=== PATIENT | female | born 1990 | race Caucasian/White ===

== ENCOUNTER 2017-12-15 16:18 | Emergency (ER) | payer MEDICAID, SELFPAY ==
[2017-12-15 16:19] VITALS: BP 137/84; PULSE 112; RESP 16; TEMP 37.2; O2SAT 100; BMI 23.5
--- NOTE | 2017-12-15 16:26 | EKG12_ITS ---
Test Reason : CP Blood Pressure : / mmHG Vent. Rate : 089 BPM Atrial Rate : 089 BPM P-R Int : 158 ms QRS Dur : 086 ms QT Int : 348 ms P-R-T Axes : 044 075 010 degrees QTc Int : 423 ms Normal sinus rhythm Normal ECG Confirmed by MER MORALES, MONICA ([id number]), photo editor MALA THOMAS ([id number]) on 12/17/2017 9:55:37 AM Referred By: GARDENIA Confirmed By:MONICA DEL ANGEL MD
--- NOTE | 2017-12-15 16:26 | RAD_ITS ---
STUDY: X-RAY CHEST REASON FOR EXAM: Female, 27 years old. CHEST PRESSURE FOR SEVERAL DAYS TECHNIQUE: PA and lateral views of the chest. COMPARISON: November 07, 2015 FINDINGS: The lungs are clear and expanded. There is no demonstrated pleural abnormality. Normal size heart. Normal mediastinum and roselia. Normal visualized pulmonary arteries. Normal visualized aortic arch and descending thoracic aorta. Normal visualized thoracic spine. Normal visualized ribs, clavicles, and shoulders. There is no demonstrated abnormality of the visualized soft tissue structures of the upper abdomen. RAD/Chest PA and Lateral IMPRESSION: Normal x-ray examination of the chest. Electronically Signed: Key Rees MD at 17:40 EDT , Service support ,
--- NOTE | 2017-12-15 16:28 | ED.DCSUM_ITS ---
- ER Visit Summary Date of Service: 12/15/17 Chief Complaint: Chest pain History of Present Illness: The patient is a 27 F presents to the emergency department with intermittent chest pain. The patient's been having symptoms for the past 2-3 days. She states that she will get a tightness in her mid chest into her midepigastric area. She does feel mildly nauseated. She states occasionally, she will feel short of breath. She states she has had this from time to time before. She did have an outpatient EKG recently and was told that she had an irregular heart rhythm. There is no family history of coronary vascular disease. The patient denies any recent travel. She has no history of pulmonary embolus. She denies any fevers or chills. She said no cough. She denies leg swelling or orthopnea. Physical Examination: Vital signs reviewed General: Well-nourished, well-developed Head: Normocephalic, atraumatic Eyes: Pupils equal and reactive, extraocular muscles intact Neck, supple, no lymphadenopathy Heart: Regular rate and rhythm Respiratory: No distress, clear bilaterally Abdomen: Soft, nontender, nondistended, no peritoneal signs Back: Nontender Extremities: Nontender, no edema, no cords Skin: Normal color no rash Neuro: Alert and oriented, no focal or lateralizing deficits Test Results: [] Emergency Department Course and Treatment: Patient presents to the emergency department with intermittent chest pain and nausea. She had minimal pain in the midepigastric area. I did obtain an EKG. She had T wave inversion in lead III, but is unchanged from prior. Patient was tachycardic in triage. She was not hypoxic or tachypneic. Chest x-ray was obtained. This is unremarkable. D- dimer is negative. Chest x-ray is also unremarkable. Patient was given fluids , Toradol, and a GI cocktail. She had resolution of her pain. I do feel that this is more likely GI in nature. The patient will be started on Pepcid and was counseled on foods to avoid. She will be discharged home. Treatment Plan: [] Disposition: Discharge Impression: 1. Chest pain This note was generated with Contents Firstation software. It may contain incorrect words, spelling, and punctuation that were not noted in review of the chart prior to signing ED Disposition - Plan for ED Patient: Chief Complaint: Chest Pain Instructions: ED Chest Pain NonCardiac Prescriptions: Ondansetron [Zofran Odt] 4 mg PO Q8H PRN PRN #10 tab PRN Reason: Nausea Famotidine [Pepcid] 20 mg PO BID #28 tab Referrals: Richard Torres MD [Primary Care Provider] -
[2017-12-15] MEDS: 0.9% Normal Saline 1,000 ML 1000 ML IV (16:38)
[2017-12-15] MEDS: Ketorolac 15 MG/ML Vial IV (16:38)
[2017-12-15] MEDS: Ondansetron 4 MG/2 ML Vial IV (16:38)
[2017-12-15 16:49] LABS: Absolute Lymphocyte Count 2.75 X10^3/ul (0.83-4.51); Absolute Neutrophil Count 5.5 X10^3/uL (2.0-7.7); Basophil# 0.04 X10^3/uL; Basophil% 0.4 % (0-1); Eosinophil# 0.05 X10^3/uL; Eosinophils% 0.6 % (0-5); Hemoglobin 13.1 g/dl (12.0-15.0); Lymphocyte # 2.75 X10^3/ul (4.0); Lymphocyte % 30.4 % (19-41); Mean Corp Hgb Conc 33.6 g/gl (32-36); Mean Corpuscular Hgb 29.4 pg (27.0-32.0); Mean Corpuscular Volume 87.4 fL (81-99); Mean Platelet Vol. 9.1 fl (6.2-12.0); Monocyte# 0.67 X10^3/uL; Monocyte% 7.4 % (0-10); Neutrophil # 5.53 X10^3/uL (2.7-7.7); Neutrophil % 61.1 % (47-70); Platelet Count 247 K/mm3 (150-450); RBC Distribution Width CV 12.7 % (11.6-14.6); RBC Distribution Width SD 40.9 fl (35.1-43.9); Red Blood Count 4.46 M/mm3 (4.2-5.4); White Blood Count 9.1 K/mm3 (4.4-11.0)
[2017-12-15 16:51] LABS: POSITIVE COUNT NO; POSITIVE DIFFERENTIAL NO; POSITIVE MORPHOLOGY NO
[2017-12-15 17:02] LABS: Anion Gap 3 (5-15); BUN 13 mg/dL (7-18); BUN/Creat Ratio 18.4 RATIO (10-20); Calcium,Total 9.2 mg/dL (8.5-10.1); Chloride 107 mmol/L (98-107); Creatinine, Serum 0.71 mg/dL (0.55-1.02); EST Glomerular Filtration Rate 107 mL/min (>60); Est Glom Filt Rate - Afr Amer 129 mL/min (>60); Estimated Creatinine Clearance 100.96 ml/min; Glucose 99 mg/dL (74-106); Potassium 3.5 mmol/L (3.5-5.1); Sodium Level 138 mmol/L (136-145)
[2017-12-15 17:16] LABS: Pregnancy, Serum, hCG Quali. NEGATIVE Negative (0-9 Nonpreg)
[2017-12-15 17:27] LABS: D-Dimer Quantitative (DVT/PE) < 0.27 FEU/ug/m (0.27-0.49)
[2017-12-15 17:59] VITALS: BP 112/80; PULSE 84; RESP 18; O2SAT 100
== END 2017-12-15 18:01 | disposition home or self-care (01) ==
LOC: ED 16:34
PROVIDERS: Emergency Provider Emergency Medicine; Family Provider Family Medicine; PCP Family Medicine
DX: R07.9 Chest pain, unspecified (principal)
CPT/HCPCS: 71046; 80048; 84703; 85025; 85379; 93005; 96361; 96374; 96375; 99285; J7030; J2405

== ENCOUNTER 2019-01-28 06:07 | Emergency (ER) | payer MEDICAID, SELFPAY ==
[2019-01-28 06:08] VITALS: BP 114/74; PULSE 90; RESP 18; TEMP 37; O2SAT 100; BMI 27.6
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
[2019-01-28] MEDS: Ondansetron 4 MG/2 ML Vial IV (06:36)
[2019-01-28] MEDS: Morphine 2 MG/ML Syringe IV (06:36)
[2019-01-28 06:53] LABS: Internal QC Validated? YES +Cl - CLEAR BKGD; Pregnancy, Serum, hCG Quali. NEGATIVE Negative
[2019-01-28 07:07] VITALS: BP 111/72; PULSE 96; RESP 16; O2SAT 99
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
[2019-01-28 08:00] VITALS: RESP 16
== END 2019-01-28 09:34 | disposition home or self-care (01) ==
LOC: ED 06:27
PROVIDERS: Emergency Provider Emergency Medicine; Family Provider Family Medicine; PCP Family Medicine
DX: S80.02XA Contusion of left knee, initial encounter (principal); V49.40XA Driver injured in collision with unspecified motor vehicles in traffic accident, initial encounter; Y93.89 Activity, other specified
CPT/HCPCS: 70450; 71045; 72072; 72125; 73564; 74177; 84703; 93005; 96374; 96375; 99285; Q9967; A4216; J2405

== ENCOUNTER 2023-06-09 16:06 | Emergency (ER) | payer MEDICAID, SELFPAY ==
[2023-06-09 16:07] VITALS: BP 119/82; PULSE 93; RESP 17; TEMP 36.4; O2SAT 98; BMI 31.9
--- NOTE | 2023-06-09 18:29 | EX.ED.DYSGE1 ---
HPI History of Present Illness Chief Complaint: General Illness Informant: patient Onset/Context/Timing Onset: Days (4) Context: Gradual Onset Timing: Continuous Quality: Aching Location: Right ear Worsened by: Nothing Relieved by: Nothing Narrative Narrative: Patient presents with ear pain, sore throat, cough, and chills that has been constant for the past 4 days. Patient states it came on gradually. Patient states she was seen at urgent care 4 days ago. Patient states she had a rapid strep done at that time which was negative. Patient states that since that time she has been having some nausea and diarrhea. Patient denies any vomiting. Patient admits to a cough but denies any sputum production. Patient admits to some subjective chills but did not take her temperature. Patient admits to some pain and pressure in her right ear. Patient admits to some decreased hearing from her right ear. PFSH PFSH Medical History no medical history no medical history Home Medications amoxicillin 500 mg tablet 500 mg PO TID #30 tabs 06/09/23 [Rx Last Taken Unknown] Allergy/AdvReac Type Severity Reaction Status Date / Time escitalopram oxalate Allergy Other Verified 06/09/23 16:07 [From Lexapro] nitrofurantoin Allergy Rash Verified 06/09/23 16:07 [From Macrobid] nitrofurantoin Allergy Rash Verified 06/09/23 16:07 macrocrystalline [From Macrobid] Family History (Updated 06/09/23 @ 18:19 by Sherry Reyes) Grandmother Breast cancer Surgical History (Updated 06/09/23 @ 18:[address] Jaron Castaneda DO) Hx of dilation and curettage Previous section Social History household members: family housing: house current occupational status: employed Smoking Status: Former smoker ROS ROS ED Constitutional Constitutional ED: Reports chills and subjective; Denies fever(s) Eyes Eyes: Denies blurry vision or change in vision ENT ENT ED: Reports ear pain right and sore throat; Denies rhinorrhea Cardiovascular Cardiovascular: Denies chest pain or palpitations Respiratory/Chest Respiratory/Chest: Reports cough; Denies dyspnea Gastrointestinal Gastrointestinal: Reports diarrhea and nausea; Denies vomiting Genitourinary Genitourinary ED: Denies dysuria or hematuria Musculoskeletal Musculoskeletal: Denies back pain or neck pain Integumentary Denies abscess or rash Neurologic Neurologic: Denies headache(s) or weakness Allergic/Immunologic Allergic/Immunologic ED: Denies mouth swelling or urticaria EXAM Physical Exam Const Vital Signs: 06/09/23 16:07 06/09/23 18:19 Temperature 97.6 F L Temperature Source Temporal Pulse Rate 93 Respiratory Rate 17 Respiratory Effort Normal Respiratory Pattern Normal Blood Pressure 119/82 H Blood Pressure Mean 94 Pulse Ox 98 Oxygen Delivery Method Room Air Positive well nourished and well developed General Appearance ED: well developed and NAD HEENT Reports moist mucous membranes HEENT Narrative: The right tympanic membrane was erythematous and dull. Left tympanic membrane was clear. Oral mucosa is pink and moist. Oropharynx is clear. Airway is patent. Eyes PERRL and EOMs intact bilaterally Neck supple and no JVD Resp normal respiratory effort and clear to auscultation bilaterally Cardio regular rate and regular rhythm Neuro oriented x3, CN's II-XII intact bilaterally and no sensory deficits noted Sensorium / Orientation: alert Motor Exam: strength 5/5 throughout Psych mental status grossly normal MDM MDM MDM Narrative Medical decision making narrative: Differential diagnosis includes viral upper respiratory infection, COVID-19 infection, influenza infection, and right otitis media. COVID-19 rapid antigen will be obtained to assess for COVID-19 infection. Influenza A and influenza B antigens will be obtained to assess for influenza infection. Lab Data Lab results narrative: COVID-19 rapid antigen was reviewed and was negative. Influenza A and influenza B antigens were reviewed and were negative. Treatment and Re-Evaluation :: Patient was advised of her findings. Patient was given a dose of amoxicillin here. Patient was given a prescription for amoxicillin for her right otitis media. Patient was instructed to take Tylenol or ibuprofen as needed for pain. Patient was instructed to follow-up with her primary care physician in 5 to 7 days. Patient was instructed return if worse in any way. Patient understood and was agreeable with the plan. All questions were answered. Discharge Plan Triage Chief Complaint: General Illness ED Provider: Jaron Castaneda Dx/Rx/DC Orders Clinical Impression: Acute right otitis media Instructions: ED Otitis Media Adult Prescriptions: New amoxicillin 500 mg tablet 500 mg PO TID Qty: 30 0RF Primary Care Provider: Richard Torres Referrals: Richard Torres MD [Primary Care Provider] - 5-7 Days Disposition Disposition: Home, Self Care
[2023-06-09] MEDS: AMOXICILLIN 500 MG CAPSULE PO (20:17)
[2023-06-09 20:18] VITALS: RESP 14
== END 2023-06-09 20:18 | disposition home or self-care (01) ==
PROVIDERS: Emergency Provider Emergency Medicine; PCP Family Medicine; Visit Provider Emergency Medicine
DX: H66.91 Otitis media, unspecified, right ear (principal); Z87.891 Personal history of nicotine dependence
CPT/HCPCS: 87428; 99283

== ENCOUNTER 2024-03-12 14:05 | Emergency (ER) | payer MEDICAID, SELFPAY ==
[2024-03-12 14:06] VITALS: BP 125/76; PULSE 89; RESP 16; TEMP 36.7; O2SAT 95; BMI 32.8
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
[2024-03-12 14:23] LABS: Absolute Neutrophil Count 5.5 X10^3/uL (2.0-7.7); Basophil# 0.06 X10^3/uL; Basophil% 0.7 % (0-1); Eosinophil# 0.29 X10^3/uL; Eosinophils% 3.2 % (0-5); Hematocrit 40.6 % (37-47); Hemoglobin 13.7 g/dL (12.0-15.0); Lymphocyte % 28.6 % (19-41); Mean Corp Hgb Conc 33.7 g/dL (32-36); Mean Corpuscular Hgb 28.5 pg (27.0-32.0); Mean Corpuscular Volume 84.4 fL (81-99); Monocyte% 6.6 % (0-10); NRBC Flagged by Analyzer 0 % (0-5); Neutrophil # 5.51 X10^3/uL (2.7-7.7); Neutrophil % 60.6 % (47-70); Platelet Count 322 K/mm3 (150-450); RBC Distribution Width CV 12.5 % (11.6-14.6); RBC Distribution Width SD 37.9 fl (35.1-43.9); Red Blood Count 4.81 M/mm3 (4.2-5.4); White Blood Count 9.1 K/mm3 (4.4-11.0)
[2024-03-12 14:41] LABS: Anion Gap 5 (5-15); BUN 14 mg/dL (7-18); BUN/Creat Ratio 19.1 RATIO (10-20); Calcium,Total 9.4 mg/dL (8.5-10.1); Chloride 108 mmol/L (98-107); Creatinine, Serum 0.73 mg/dL (0.55-1.02); EST Glomerular Filtration Rate 98 mL/min (>60); Est Glom Filt Rate - Afr Amer 119 mL/min (>60); Estimated Creatinine Clearance 100.19 ml/min; Glucose 90 mg/dL (74-106); Potassium 3.8 mmol/L (3.5-5.1); Sodium Level 138 mmol/L (136-145); Troponin-I HS (w/2H Reflex) < 3 pg/mL (3.0-54.0)
[2024-03-12 15:06] VITALS: BP 104/70; PULSE 82; RESP 16; O2SAT 95
--- NOTE | 2024-03-12 15:20 | RAD_ITS ---
STUDY: X-RAY CHEST REASON FOR EXAM: Female, 33 years old. Chest pain TECHNIQUE: Single AP portable view of the chest. COMPARISON: Comparison is made with prior study dated January 28, 2019. FINDINGS: EKG electrodes are seen. The lungs are clear and expanded. There is no demonstrated pleural abnormality. Normal size heart. Normal mediastinum and roselia. Normal visualized pulmonary arteries. Normal visualized aortic arch and descending thoracic aorta. Normal visualized thoracic spine. Normal visualized ribs, clavicles, and shoulders. There is no demonstrated abnormality of the visualized soft tissue structures of the upper abdomen. RAD/Chest 1 View (Portable) IMPRESSION: Normal x-ray examination of the chest. Electronically Signed: Nathaniel Hwang MD at 15:36 EDT ,
--- NOTE | 2024-03-12 15:29 | EDS_ITS ---
HPI History of Present Illness Chief Complaint: Chest Pain PFSH PFS Home Medications ?Medication ?Instructions ?Recorded ?Last Taken ?Type amoxicillin 500 mg tablet 500 mg PO TID #30 tabs 06/09/23 Unknown Rx Allergy/AdvReac Type Severity Reaction Status Date / Time escitalopram oxalate (From Allergy Other Verified 03/12/24 14:08 Lexapro) nitrofurantoin (From Allergy Rash Verified 03/12/24 14:08 Macrobid) nitrofurantoin Allergy Rash Verified 03/12/24 14:08 macrocrystalline (From Macrobid) Family History (Updated 06/09/23 @ 18:19 by Sherry Reyes) Grandmother Breast cancer Surgical History Hx of dilation and curettage Previous section Social History household members: family housing: house current occupational status: employed Smoking Status: Former smoker EXAM Physical Exam Const Vital Signs: 03/12/24 14:06 03/12/24 15:06 03/12/24 15:06 Temperature 98.1 F Temperature Source Oral Pulse Rate 89 82 Respiratory Rate 16 16 Respiratory Effort Normal Blood Pressure 125/76 H 104/70 Blood Pressure Mean 92 81 Pulse Ox 95 95 Oxygen Delivery Method Room Air Room Air 03/12/24 15:15 03/12/24 16:00 03/12/24 17:00 Temperature Temperature Source Pulse Rate 83 80 Respiratory Rate 19 H 16 Respiratory Effort Blood Pressure 106/77 101/64 Blood Pressure Mean 86 76 Pulse Ox 100 99 Oxygen Delivery Method Room Air Room Air Room Air MDM MDM MDM Narrative Medical decision making narrative: HISTORY OF PRESENT ILLNESS: 33-year-old female with no significant past medical history presents with chest pain. Notes chest pain for 1 and half weeks. Notes worsening she moves her arms around. She further states she is having chest pain constantly for 1 and half weeks. Denies syncope. Chest pain is sharp. As well as when she moves her upper extremities. Is not worse with exertion. It is not pleuritic. She has no family history of early cardiac . Denies any bleeding diathesis or volume loss. Patient denies sudden onset of pain, no tearing sensation, no migratory symptoms, no new numbness, weakness or loss of sensation. Patient denies family history or personal history of Marfan syndrome or Lola-Danlos. The patient denies recent surgery in the last 4 weeks or immobilization in the last 3 days, denies previous diagnosis of DVT or PE, hemoptysis, unilateral leg swelling or malignancy with treatment the last 6 months. No estrogen use noted. REVIEW OF SYSTEMS: All other systems reviewed and are negative except as noted in the history of present illness. At least 10 review of systems reviewed and are negative except as noted in history of present illness. PHYSICAL EXAM: Nursing triage notes reviewed, Vital signs reviewed Constitutional: please see mdm HENT: MMM Eyes: Pupils equal round and reactive to light, Extraocular muscles intact Neck: No stridor, no JVD, full neck ROM Lungs: Clear to auscultation, No wheezing or rales. No increased work of breathing, no conversational dyspnea, no accessory muscle use, no nasal flaring. No respiratory distress noted Heart: Regular rate and rhythm, No murmurs, No rubs and No gallops, 2+ distal pulses (radial, femoral, posterior tibial) in all extremities Abdomen: Soft, there is no tenderness, rigidity, rebound or guarding, no obvious peritoneal signs, no palpable pulsatile abdominal masses, no auscultated abdominal bruit : No CVAT Extremities: No edema Neuro: No focal neurological deficits, cranial nerves II through XII intact, 5/5 strength in all extremities. Intact sensation to light touch in all extremities, 2+ reflexes bilateral patella tendons. Normal gait. No ataxia. Skin: No rash or lesions noted MEDICAL DECISION MAKING: Chief Complaint: Chest pain External records reviewed: Prior imaging, medications and prior outpatient notes reviewed Factors affecting care none report Social determinants of health:[None History obtained from others: Consults: none [facility] Narrative: The patient was initially hemodynamically stable, afebrile and nontoxic- appearing. No focal cardiopulmonary abnormalities I considered the following differential diagnosis: ACS, arrhythmia, anemia, electrolyte abnormality, pneumonia, pneumothorax, GI etiology, PE Considered the following thought they are less likely secondary to history and physical exam components: PE less likely given low risk Wells score. Aortic dissection is thought to be less likely given no sudden ripping or tearing pain, migratory pain, palpable pulse inequalities, no focal neurologic deficits concurrent with chest pain. Chance of dissection less than 06/1999. Pericarditis less likely given no pathognomonic EKG changes (no diffuse ST elevations, [place] depressions). GI etiology (i.e. Boerhaave syndrome) less likely given no chest or neck crepitus, no vomiting or forced retching. ALL IMAGES (IF OBTAINED) HAVE BEEN PERSONALLY REVIEWED AND INTERPRETED BY MYSELF. EKG and labs obtained in triage: EKG with normal sinus rhythm, normal axis, no intervals, no STEMI CBC without leukocytosis, severe anemia, no thrombocytopenia. BMP without evidence of significant electrolyte abnormalities, no anion gap, no acute kidney injury. High-sensitivity troponin is negative, no evidence of myocardial ischemia x 2 The synthesis of the patient's history, physical exam, labs images suggest no acute life-limiting etiology. I completed a HEART Score to screen for Major Adverse Cardiac Event (MACE) in this patient. The evidence indicates that the patient is very low risk for MACE and this is consistent with my clinical intuition. The risk of further workup or hospitalization for MACE is likely higher than the risk of the patient having a MACE. It is, therefore, in the patient?s best interest not to do additional emergent testing or to be hospitalized for MACE at this time. Shared Decision-Making No hospitalization indicated I have discussed with the patient my clinical impression and the result of the HEART Score to screen for MACE, as well as the risks of further testing and hospitalization. The HEART Score shows that the risk for MACE is less than 1%. Although the risk of MACE has not been completely eliminated, the risks of further testing or hospitalization for MACE likely exceed any potential benefit, and the patient agrees with not pursuing further emergent evaluation or hospitalization for MACE at this time. The patient and/or family, caregivers express understanding. The patient and/or family, caregivers agrees with the plan. Total critical care time today provided was at least 0 minutes. This excludes separately billable procedures. Critical care time (if documented) is secondary to the patient having high probability of clinically significant/life threatening deterioration in the patient's condition which required my urgent intervention. Impression: 1. Chest pain 2. Hyperchloremia Disposition: Discharge home Dexter Powell, DO Lab Data Labs: Laboratory Results - last 24 hr 03/12/24 03/12/24 14:13 16:15 WBC 9.1 RBC 4.81 Hgb 13.7 Hct 40.6 MCV 84.4 MCH 28.5 MCHC 33.7 RDW Std Deviation 37.9 RDW Coeff of Tevin 12.5 Plt Count 322 MPV 9.0 Immature Gran % (Auto) 0.300 Neut % (Auto) 60.6 Lymph % (Auto) 28.6 [place] % (Auto) 6.6 Eos % (Auto) 3.2 Baso % (Auto) 0.7 Absolute Neuts (auto) 5.5 Absolute Lymphs (auto) 2.60 Nucleated RBC % 0 Sodium 138 Potassium 3.8 Chloride 108 H Carbon Dioxide 25.0 Anion Gap 5 BUN 14 Creatinine 0.73 Estim Creat Clear Calc 100.19 Est GFR (MDRD) Af Amer 119 Est GFR (MDRD) Non-Af 98 BUN/Creatinine Ratio 19.1 Glucose 90 Calcium 9.4 Troponin I High Sens < 3 L 4 Radiography Diagnostic Testing: Clinical Impression(s) from Imaging Studies Chest X-Ray 03/12/24 15:20 IMPRESSION: Normal x-ray examination of the chest. Electronically Signed: Nathaniel Hwang MD at 15:36 EDT , Discharge Plan Triage Chief Complaint: Chest Pain ED Provider: Dexter Powell Dx/Rx/DC Orders Prescriptions: No Action amoxicillin 500 mg tablet 500 mg PO TID Qty: 30 0RF Primary Care Provider: Richard Torres Referrals: Richard Torres MD [Primary Care Provider] - Print Language: Estonian
[2024-03-12 16:00] VITALS: BP 106/77; PULSE 83; RESP 19; O2SAT 100
[2024-03-12 16:20] LABS: Reflex Troponin-HS? (from REC) Y
[2024-03-12 16:43] LABS: Troponin-I HS 4 pg/mL (3.0-54.0)
[2024-03-12 17:00] VITALS: BP 101/64; PULSE 80; RESP 16; O2SAT 99
[2024-03-12 17:59] VITALS: BP 117/62; PULSE 57; RESP 15; TEMP 36.3; O2SAT 100
== END 2024-03-12 18:00 | disposition home or self-care (01) ==
PROVIDERS: Emergency Provider Emergency Medicine; PCP Family Medicine; Visit Provider Emergency Medicine
DX: R07.9 Chest pain, unspecified (principal); E87.8 Other disorders of electrolyte and fluid balance, not elsewhere classified; Z88.1 Allergy status to other antibiotic agents; Z87.891 Personal history of nicotine dependence
CPT/HCPCS: 71045; 80048; 84484; 85025; 93005; 99284; A4216

== ENCOUNTER 2025-05-28 14:51 | Emergency (ER) | payer MEDICAID, SELFPAY ==
[2025-05-28 14:52] VITALS: BP 122/84; PULSE 90; RESP 16; TEMP 36.6; O2SAT 99; BMI 38.0
--- NOTE | 2025-05-28 15:36 | ED.VIS.CHEST ---
HPI History of Present Illness Chief Complaint: Chest Pain Informant: patient Onset/Context/Timing Onset: Yesterday Activity at onset: sudden Timing: Continuous Location: Substernal, Left Parasternal and Left Chest Worsened By: Nothing Relieved By: Nothing Associated Symptoms: Positive for Nausea, Vomiting, Lightheadedness and Palpitations; Negative for Diaphoresis, Dyspnea, Cough, Fever or Acid Reflux Narrative Narrative: Patient presents with chest pain that began yesterday. Patient states it began rather suddenly. Patient dates it is constant. Patient describes it as a tightness. Patient states the pain is over the substernal area and radiates to the left chest and into her back. Patient states nothing makes it better and nothing makes it worse. Patient admits to some nausea and vomiting. Patient also admits to some lightheadedness. Patient states she had an episode yesterday where she felt like her heart was racing. CVD Risk Factors: Negative for Hypertension, Diabetes, Hypercholesterolemia, Family History 1' </=55 or Smoking PE Risk Factors: Negative for Recent Travel/Surgery, Recent Immobilization, Prior DVT or PE or Cancer [facility] Medical History Anxiety Former smoker Home Medications ?Medication ?Instructions ?Recorded ?Last Taken ?Type cetirizine 10 mg tablet 10 mg PO DAILY 05/28/25 05/27/25 History fluticasone propionate 50 1 spray intranasal DAILY 05/28/25 05/27/25 History mcg/actuation nasal spray,suspension Allergy/AdvReac Type Severity Reaction Status Date / Time escitalopram oxalate (From Allergy Other Verified 05/28/25 14:53 Lexapro) nitrofurantoin (From Allergy Rash Verified 05/28/25 14:53 Macrobid) nitrofurantoin Allergy Rash Verified 05/28/25 14:53 macrocrystalline (From Macrobid) Family History (Updated 06/09/23 @ 18:19 by Sherry Reyes) Grandmother Breast cancer Surgical History Hx of dilation and curettage Previous section Social History household members: family housing: house current occupational status: employed Smoking Status: Former smoker ROS ROS ED Constitutional Constitutional ED: Denies chills or fever(s) Eyes Eyes: Denies blurry vision or change in vision ENT ENT ED: Reports rhinorrhea; Denies sore throat Cardiovascular Cardiovascular: Reports chest pain, palpitations and racing heartbeat Respiratory/Chest Respiratory/Chest: Denies cough or dyspnea Gastrointestinal Gastrointestinal: Reports nausea and vomiting Genitourinary Genitourinary ED: Denies dysuria or hematuria Musculoskeletal Musculoskeletal: Reports back pain and neck pain Integumentary Denies abscess or rash Neurologic Neurologic: Reports headache(s); Denies weakness Allergic/Immunologic Allergic/Immunologic ED: Denies mouth swelling or urticaria EXAM Physical Exam Const Vital Signs: 05/28/25 14:52 05/28/25 15:05 05/28/25 15:52 Temperature 98 F Temperature Source Oral Pulse Rate 90 87 Respiratory Rate 16 18 Respiratory Effort Normal Blood Pressure 122/84 H 118/74 Blood Pressure Mean 96 88 Pulse Ox 99 100 Oxygen Delivery Method Room Air Room Air 05/28/25 15:52 05/28/25 16:00 05/28/25 16:56 Temperature Temperature Source Pulse Rate 79 87 Respiratory Rate 14 18 Respiratory Effort Blood Pressure 118/74 113/78 Blood Pressure Mean 88 89 Pulse Ox 100 100 Oxygen Delivery Method Room Air Room Air Room Air 05/28/25 18:00 05/28/25 18:44 Temperature 98.9 F Temperature Source Pulse Rate 74 79 Respiratory Rate 15 17 Respiratory Effort Blood Pressure 101/72 108/70 Blood Pressure Mean 81 82 Pulse Ox 94 98 Oxygen Delivery Method Room Air Positive well nourished and well developed Constitutional Narrative: BMI is 38.0. General Appearance ED: well developed and NAD HEENT Reports moist mucous membranes Neck supple and no JVD Resp normal respiratory effort and clear to auscultation bilaterally Cardio regular rate and regular rhythm GI soft to palpation, non-tender and non-distended Neuro oriented x3, CN's II-XII intact bilaterally and no sensory deficits noted Sensorium / Orientation: awake and alert Motor Exam: strength 5/5 throughout Psych mental status grossly normal Heart Score History: Slightly/Non-Suspicious ECG: Normal Age: </= 45 years Risk Factors: No Risk Factors Troponin: </= Normal Limit Score: 0 MDM MDM MDM Narrative Medical decision making narrative: Differential diagnosis includes cardiac dysrhythmia, cardiac ischemia, pneumonia, bronchitis, electrolyte abnormality, gastroesophageal reflux disease, and anxiety. EKG will be obtained to assess for cardiac dysrhythmia and cardiac ischemia. Chest x-ray will be obtained to assess for pneumonia and bronchitis. CBC will be obtained to assess for leukocytosis and anemia. Basic metabolic profile will be obtained to assess for electrolyte abnormality renal function x-ray high-sensitivity troponin will be obtained to assess for coronary ischemia. History & Record Review Additional record(s) reviewed:: Prior ED visit and Prior labs Lab Data Attestation: I reviewed the patient's lab results. Lab results narrative: CBC was reviewed and was within normal limits. Basic metabolic profile was reviewed and was within normal limits. High-sensitivity troponin was reviewed and was less than 6. D-dimer was reviewed and was normal at 0.34. 2-hour repeat high-sensitivity troponin was reviewed and was less than 6. Labs: Laboratory Results - last 24 hr 05/28/25 05/28/25 15:20 17:15 WBC 9.6 RBC 4.71 Hgb 13.8 Hct 40.6 MCV 86.2 MCH 29.3 MCHC 34.0 RDW Std Deviation 39.5 RDW Coeff of Tevin 12.5 Plt Count 325 MPV 9.4 Immature Gran % (Auto) 0.200 Neut % (Auto) 67.1 Lymph % (Auto) 23.8 [place] % (Auto) 5.6 Eos % (Auto) 2.7 Baso % (Auto) 0.6 Absolute Neuts (auto) 6.4 Absolute Lymphs (auto) 2.28 Nucleated RBC % 0 D-Dimer Quant (PE/DVT) 0.34 Sodium 139 Potassium 3.7 Chloride 103 Carbon Dioxide 24.5 Anion Gap 11 BUN 9 Creatinine 0.63 L Estim Creat Clear Calc 124.28 Est GFR (MDRD) Non-Af 121 BUN/Creatinine Ratio 15.0 Glucose 91 Calcium 9.4 Troponin T High Sens < 6 Troponin T Hi Sens 2 Hr < 6 Radiography Chest X-Ray - ED: 2 View, Read by ED Physician, Read by Radiologist and No Acute Disease Diagnostic Testing: Clinical Impression(s) from Imaging Studies Chest X-Ray 05/28/25 16:15 IMPRESSION: No acute cardiopulmonary disease. Reading Location: [facility] PA and lateral chest x-ray was obtained. There are 2 views. On my independent interpretation, lung byrd are clear. There is normal cardiac silhouette. Bony thorax is normal. There is no acute process noted. Radiologist also interpreted the x-ray and agrees. EKG Initial EKG: Attestation: I personally reviewed and interpreted this EKG as follows: Interpretation: Sinus Rhythm (63) and No Acute Injury Pattern Comments: EKG was obtained. On my independent interpretation, it showed a normal sinus rhythm with a rate of 63. NE interval, QRS interval, and QTc intervals were all normal. [place] was normal. There are no acute ST or T wave changes. Prior EKG tracings: available for review Prior: Unchanged (03/12/2024) Treatment and Re-Evaluation :: Patient was given aspirin. Patient was feeling better on reevaluation. Patient was advised of her findings. Patient has a HEART score of 0. Patient was advised that this is low risk for acute cardiac event. Patient was instructed to follow-up with her primary care physician in 5 to 7 days. Patient understood and was agreeable with the plan. All questions were answered. Discharge Plan Triage Chief Complaint: Chest Pain ED Provider: Jaron Castaneda Dx/Rx/DC Orders Clinical Impression: Chest pain Instructions: ED Chest Pain, Uncertain Cause Prescriptions: No Action cetirizine 10 mg tablet 10 mg PO DAILY fluticasone propionate 50 mcg/actuation spray,suspension 1 spray INTRANASAL DAILY Primary Care Provider: Richard Torres Referrals: Richard Torres MD [Primary Care Provider, Medical] - 5-7 Days Print Language: Yi Disposition Disposition: Home, Self Care Discharge Date/Time: 05/28/25 19:03
[2025-05-28 15:52] VITALS: BP 118/74; PULSE 87; RESP 18; O2SAT 100
--- NOTE | 2025-05-28 15:52 | EKG12_ITS ---
Test Reason : Blood Pressure : */* mmHG Vent. Rate : 63 BPM Atrial Rate : 63 BPM P-R Int : 172 ms QRS Dur : 78 ms QT Int : 386 ms P-R-T Axes : 36 75 23 degrees QTcB Int : 395 ms Normal sinus rhythm with sinus arrhythmia Normal ECG Confirmed by MER MORALES, MONICA ([id number]), editor index SHAILESH MCKINNEY ([id number]) on 05/31/2025 6:06:01 AM Referred By: Confirmed By: MONICA DEL ANGEL MD
[2025-05-28 16:00] VITALS: BP 118/74; PULSE 79; RESP 14; O2SAT 100
--- NOTE | 2025-05-28 16:15 | RAD_ITS ---
PROCEDURE: CHEST PA AND LATERAL 05/28/2025 REASON FOR EXAM: CHEST PAIN TECHNIQUE: Procedure Code: RADCXR Modality: DX Procedure: CHEST PA AND LATERAL COMPARISON: 03/12/2024 FINDINGS: Lungs/Pleura: Clear. Heart/Mediastinum: Normal in size. Bones/Soft tissues: Unremarkable. RAD/Chest PA and Lateral IMPRESSION: No acute cardiopulmonary disease. Reading Location: [id number]
[2025-05-28 16:29] LABS: Hematocrit 40.6 % (37-47); Hemoglobin 13.8 g/dL (12.0-15.0); Immature Granulocytes Count 0.020 X10^3/uL (0.0-0.0); Mean Corp Hgb Conc 34.0 g/dL (32-36); Mean Corpuscular Volume 86.2 fL (81-99); Mean Platelet Vol. 9.4 fl (6.2-12.0); NRBC Flagged by Analyzer 0 % (0-5); Platelet Count 325 K/mm3 (150-450); RBC Distribution Width CV 12.5 % (11.6-14.6); RBC Distribution Width SD 39.5 fl (35.1-43.9); Red Blood Count 4.71 M/mm3 (4.2-5.4); White Blood Count 9.6 K/mm3 (4.4-11.0)
[2025-05-28 16:36] LABS: D-Dimer Quantitative (DVT/PE) 0.34 FEU/ug/m (0.27-0.49)
[2025-05-28 16:42] LABS: Anion Gap 11 (5-15); BUN 9 mg/dL (4-19); BUN/Creat Ratio 15.0 RATIO (10-20); Calcium,Total 9.4 mg/dL (7.6-11.0); Carbon Dioxide 24.5 mmol/L (21.0-32.0); Chloride 103 mmol/L (98-108); Estimated Creatinine Clearance 124.28 ml/min (50-250); Glucose 91 mg/dL (70-99); Potassium 3.7 mmol/L (3.3-5.1); Troponin T High Sensitivity < 6 ng/L (<=14)
[2025-05-28 16:56] VITALS: BP 113/78; PULSE 87; RESP 18; O2SAT 100
[2025-05-28 17:50] LABS: Troponin T High Sens 2 HR < 6 ng/L (<=14)
[2025-05-28 18:00] VITALS: BP 101/72; PULSE 74; RESP 15; O2SAT 94
[2025-05-28 18:44] VITALS: BP 108/70; PULSE 79; RESP 17; TEMP 37.2; O2SAT 98
== END 2025-05-28 19:03 | disposition home or self-care (01) ==
PROVIDERS: Emergency Provider Emergency Medicine; PCP Family Medicine; Visit Provider Emergency Medicine
DX: R07.9 Chest pain, unspecified (principal); Z87.891 Personal history of nicotine dependence
CPT/HCPCS: 71046; 80048; 84484; 85025; 85379; 93005; 99284; A4216

== ENCOUNTER 2025-06-07 23:38 | Emergency (ER) | payer OTHER, MEDICAID, SELFPAY ==
[2025-06-07 23:39] VITALS: BP 141/84; PULSE 93; RESP 16; TEMP 36.6; O2SAT 98; BMI 32.9
--- NOTE | 2025-06-07 23:52 | EDS_ITS ---
HPI History of Present Illness Chief Complaint: Back Informant: patient Onset/Context/Timing Onset: Today Context: Sudden Onset Injury: lifting Timing: Continuous Quality: Sharp Location: Lumbar and Buttock Worsened by: improves with Movement Relieved by: Nothing Associated Symptoms Associated Symptoms: Negative for Numbness, Tingling, Radiation to Right Leg, Radiation to Left Leg, Fever, Abdominal Pain, Dysuria, Unable to Ambulate, Unable to Transfer, Urinary Retention, Urinary Incontinence, Constipation or Fecal Incontinence Narrative Narrative: Patient presents with low back pain that began tonight. 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 Patient states that she felt a pop in her low back. Patient states her pain radiates into her right hip. Patient states it is mainly over the right lower lumbar area. Patient denies any paresthesias or weakness. Patient denies any bowel or bladder changes. Patient denies any saddle anesthesia. Patient denies any other injuries. [facility] History Anxiety Former smoker Home Medications ?Medication ?Instructions ?Recorded ?Last Taken ?Type cetirizine 10 mg tablet 10 mg PO DAILY 05/28/2510/16 History fluticasone propionate 50 1 spray intranasal DAILY 11/1505/27/25 History mcg/actuation nasal spray,suspension naproxen 500 mg tablet 500 mg PO BID PRN #20 tabs 1 08/09/24 Unknown Rx Allergy/AdvReac Type Severity Reaction Status Date / Time escitalopram oxalate (From Allergy Other Verified 06/07/25 23:42 Lexapro) nitrofurantoin (From Allergy Rash Verified 06/07/25 23:42 Macrobid) nitrofurantoin Allergy Rash Verified 06/07/25 23:42 macrocrystalline (From Macrobid) Family History (Updated 06/09/23 @ 18:19 by Sherry Reyes) Grandmother Breast cancer Surgical History Hx of dilation and curettage Previous section Social History household members: family housing: house current occupational status: employed Smoking Status: Former smoker ROS ROS ED Constitutional Constitutional ED: Denies chills or fever(s) Eyes Eyes: Denies blurry vision or change in vision ENT ENT ED: Reports rhinorrhea and sore throat Cardiovascular Cardiovascular: Denies chest pain or palpitations Respiratory/Chest Respiratory/Chest: Denies cough or dyspnea Gastrointestinal Gastrointestinal: Denies nausea or vomiting Genitourinary Genitourinary ED: Denies dysuria or hematuria Musculoskeletal Musculoskeletal: Reports back pain; Denies neck pain Integumentary Denies abscess or rash Neurologic Neurologic: Denies headache(s) or weakness Allergic/Immunologic Allergic/Immunologic ED: Denies mouth swelling or urticaria EXAM Physical Exam Const Vital Signs: 06/07/25 23:39 Temperature 97.8 F Temperature Source Temporal Pulse Rate 93 Respiratory Rate 16 Blood Pressure 141/84 H Blood Pressure Mean 103 Pulse Ox 98 Oxygen Delivery Method Room Air Positive well nourished and well developed Constitutional Narrative: BMI is 33.0. General Appearance ED: well developed and NAD HEENT Reports moist mucous membranes Neck supple and no JVD Back/Spine Back/Spine Narrative: There is tenderness and spasm of the right lumbar paraspinal muscles. There is mild midline tenderness. There is no bony crepitance or step-off. Range of motion was limited in all motions of the lumbar spine secondary to pain. Strength is 5/5 bilaterally in the lower extremities. There are no sensory deficits noted. Deep tendon reflexes are 2/4 bilaterally in the lower extremities. Lumbar Spine / Lower Back: ROM limited and straight leg raise negative bilaterally Extremity normal to inspection General Extremety ED: Negative for edema General Extremity: Negative for edema Neuro oriented x3 and no sensory deficits noted Sensorium / Orientation: alert Motor Exam: strength 5/5 throughout Deep Tendon Reflexes: Rt Patellar (L4): 2+, Lt Patellar (L4): 2+, Rt Ankle (S1): 2+ and Lt Ankle (S1): 2+ Deep Tendon Reflexes Back: Rt Patellar (L4): 2+, Lt Patellar (L4): 2+, Rt Ankle (S1): 2+ and Lt Ankle (S1): 2+ Psych mental status grossly normal MDM MDM MDM Narrative Medical decision making narrative: Differential diagnosis includes spondylolisthesis, lumbosacral strain, and lumbar compression fracture. X-rays of the lumbar spine will be obtained to assess for spondylolisthesis and compression fracture. History & Record Review Additional record(s) reviewed:: Prior ED visit and Prior labs Radiography Diagnostic Testing: Clinical Impression(s) from Imaging Studies Lumbar Spine X-Ray 06/08/25 00:15 IMPRESSION: Grade 1 anterolisthesis of L5 on S1 secondary to bilateral pars defects. Mild narrowing of the posterior intervertebral disc space at L5-S1. Mildly exaggerated lumbar lordosis. Reading Location: [place] [id number] X-rays of the lumbar spine were obtained. There are 3 views. On my independent interpretation, there is no acute fracture. There is a grade 1 spondylolisthesis of L5 on S1. Radiologist also interpreted the x-rays and agrees. Treatment and Re-Evaluation Narrative: Patient was given a dose of Naprosyn here. Patient was advised of her findings. Patient was given a prescription for Naprosyn. Patient was instructed to use ice to the area. Patient was instructed to avoid heavy lifting and bending. Patient was given a note for work. Patient was instructed to follow-up with her primary care physician and/or the [facility] in 5 to 7 days. Patient was instructed to return if worse in any way. Patient understood and was agreeable with the plan. All questions were answered. Discharge Plan Triage Chief Complaint: Back ED Provider: Jaron Castaneda Dx/Rx/DC Orders Clinical Impression: Acute lumbosacral myofascial strain, Elevated blood pressure reading Instructions: ED Back Sprain/Strain Prescriptions: New naproxen 500 mg tablet 500 mg PO BID PRN Qty: 20 0RF No Action cetirizine 10 mg tablet 10 mg PO DAILY fluticasone propionate 50 mcg/actuation spray,suspension 1 spray INTRANASAL DAILY Stand Alone Forms: Work Status Form Primary Care Provider: Richard Torres Referrals: Richard Torres MD [Primary Care Provider, Medical] - 5-7 Days [facility] [Non-Staff, None] - 5-7 Days Print Language: Cambodian Disposition Disposition: Home, Self Care
--- OUTSIDE RECORDS SUMMARY | 2025-06-08 00:09 | XMS RPT_ITS | CCD ---
Author Organization [facility] Care Team Providers Care Consulting Technical Director Name Role Phone Richard Mcclain MD Primary Care Provider [phone] KELLY GROVES Referring Unavailable RICHARD MCCLAIN Primary Care Unavailable KELLY GROVES Referring Unavailable RICHARD MCCLAIN Primary Care Unavailable Richard Mcclain MD Primary Care Provider [phone] Jaron Castaneda Attending Unavailable Richard Mcclain Primary Care Unavailable Richard Mcclain Primary Care Unavailable Dexter Powell Attending Unavailable Fuad MARKETING TECHNOLOGIST.ASSEMBLER TUBINGPalma Unavailable Vy MARKETING TECHNOLOGIST.ASSEMBLER TUBINGZee Unavailable RINA ESPINAL Referring Unavailable RICHARD MCCLAIN Primary Care Unavailable BETO VARGAS Attending Unavailable RICHARD MCCLAIN Primary Care Unavailable LIN LÓPEZ Attending Unavailable BETO VARGAS Referring Unavailable RICHARD MCCLAIN Primary Care Unavailable NINA PHILLIP Attending Unavailable RICHARD MCCLAIN Primary Care Unavailable RICHARD MCCLAIN Primary Care Unavailable ELISA GELLER Attending Unavailable RICHARD MCCLAIN Primary Care Unavailable RINA ESPINAL Attending Unavailable RICHARD MCCLAIN Primary Care Unavailable Allergies Allergy Classification Reported Allergen(s) Allergy Type Date of Onset Reaction(s) Facility (20 sources) Ciprofloxacin; Translations: [CIPROFLOXACIN] Drug Allergy 7 Rash [facility] (20 sources) Escitalopram; Translations: [ESCITALOPRAM OXALATE] Drug Allergy 5 Intolerance [facility] Work Phone: (20 sources) NITROFURANTOIN, MACROCRYSTALS / Nitrofurantoin, Monohydrate; Translations: [NITROFURANTOIN MONOHYD/M-CRYST] Drug Allergy 5 Rash [facility] (1 source) Escitalopram Drug Allergy 4 [facility] (2 sources) Nitrofurantoin Drug Allergy 3 [facility] (1 source) Nitrofurantoin Drug Allergy 4 [facility] (1 source) Nitrofurantoin Drug Allergy 3 [facility] Medications Current Medications Medication Drug Class(es) Dates Sig (Normalized) Sig (Original) amoxicillin 875 mg oral tablet (2 sources) Penicillin-class Antibacterial Start: 02-16-2025 End: 02-23-2025 take 1 tablet by mouth twice daily amoxicillin (AMOXIL) 875 mg tablet Indications: Non-recurrent acute serous otitis media of left ear Take 1 tablet by mouth two times a day for 7 days. 14 tablet 02/16/2025 02/23/2025 Active Start: 06-09-2023 take 500 mg by mouth three times daily Amoxicillin Active 500 MG PO THREE TIMES A DAY June 09, 2023 12:00am cetirizine hydrochloride 10 mg oral tablet (1 source) Histamine-1 Receptor Antagonist Start: 02-04-2024 End: 02-18-2024 take 1 tablet by mouth once daily cetirizine (ZYRTEC) 10 mg tablet Indications: Left ear pain Take 1 tablet by mouth once daily for 14 days. 14 tablet 0 02/04/2024 02/18/2024 Active fluticasone propionate 0.05 mg/actuat metered dose nasal spray (20 sources) Corticosteroid Start: 02-16-2025 take 2 spray(s) nasal route once daily fluticasone (FLONASE ALLERGY RELIEF) 50 mcg/actuation nasal spray Indications: Non-recurrent acute serous otitis media of left ear Use 2 sprays in each nostril once daily. 1 each 02/16/2025 Active Start: 01-23-2021 End: 12-24-2023 take 2 spray(s) by mouth once daily fluticasone (FLONASE) 50 mcg/actuation nasal spray Use 2 Sprays in each nostril once daily. Rinse mouth after use. 1 Each 0 10/31/2022 12/24/2023 Discontinued Comment on above: Use 2 Sprays in each nostril once daily. Rinse mouth after use. ibuprofen 800 mg oral tablet (2 sources) Nonsteroidal Anti-inflammatory Drug Start: 11-01-19 End: 11-06-19 take 1 tablet by mouth every eight hours as needed ibuprofen (MOTRIN) 800 mg tablet Take 1 tablet by mouth every 8 hours as needed for pain (with food.) for up to 5 days. 15 tablet 0 10/31/2022 11/05/2022 Active Comment on above: Take 1 tablet by tasha th every 8 hours as needed for pain (with food.) for up to 5 days. levonorgestrel 0.203347 mg/hr intrauterine system (20 sources) Progestin, Progestin-containing Intrauterine Device Start: 10-16-19 End: 10-14-19 levonorgestrel (MIRENA) 21 mcg/24hr (up to 8 yrs) 52 mg IUD Indications: Encounter for IUD insertion 1 each by INTRAUTERINE route as directed. 1 each 10/15/2024 10/13/2032 Active Start: 12-12-2016 End: 12-24-2023 levonorgestrel (MIRENA) 20 m cg/24 hr (5 years) IUD Inserted in office 1 Each 0 12/12/2016 12/24/2023 Discontinued Comment on above: Inserted in office omeprazole 20 mg delayed release oral capsule (3 sources) Proton Pump Inhibitor Start: 2024 take 1 capsule by mouth once daily before breakfast omeprazole (PRILOSEC) 20 mg capsule Indications: Gastroesophageal reflux disease, unspecified whether esophagitis present Take 1 capsule by mouth daily before breakfast. 30 capsule 2 11/13/2024 Active ondansetron 4 mg disintegrating oral tablet (3 sources) Serotonin-3 Receptor Antagonist Start: 2022 End: 2022 take 1 tablet by mouth every eight hours as needed for nausea ondansetron orally disintegrating (ZOFRAN ODT) 4 mg disintegrating tablet Indications: Nausea and vomiting, unspecified vomiting type Take 1 tablet by mouth every 8 hours as needed for nausea/vomiting for up to 5 days. 15 tablet 0 10/29/2022 11/03/2022 Active Comment on above: Take 1 tablet by tasha th every 8 hours as needed for nausea/vomiting for up to 5 days. oseltamivir 75 mg oral capsule (2 sources) Neuraminidase Inhibitor Start: 2024 End: 2024 take 1 capsule by mouth twice daily oseltamivir (TAMIFLU) 75 mg capsule Indications: Influenza Take 1 capsule by mouth two times a day for 5 days. 10 capsule 08/19/2024 08/24/2024 Active predniSONE 50 mg oral tablet (1 source) Start: 2023 End: 2023 take 1 tablet by mouth once daily predniSONE (DELTASONE) 50 mg Indications: Left ear pain Take 1 tablet by mouth once daily for 5 days. 5 tablet 0 02/04/2024 02/09/2024 Active sulfamethoxazole 800 mg / trimethoprim 160 mg oral tablet (1 source) Dihydrofolate Reductase Inhibitor Antibacterial, Sulfonamide Antimicrobial Start: 2021 End: 2021 take 1 tablet by mouth twice daily sulfamethoxazole-trime thoprim (BACTRIM DS) 800-160 mg per tablet Take 1 tablet by mouth twice daily for 5 days. 10 tablet 0 11/15/2021 11/20/2021 Active Comment on above: Take 1 tablet by tasha twice daily for 5 days. valACYclovir 1000 mg oral tablet (20 sources) Herpesvirus Nucleoside Analog DNA Polymerase Inhibitor, Herpes Simplex Virus Nucleoside Analog DNA Polymerase Inhibitor, Herpes Zoster Virus Nucleoside Analog DNA Polymerase Inhibitor Start: 2023 End: 2024 take 1 tablet by mouth once daily valACYclovir (VALTREX) 1 gram tablet Indications: Labial lesion Take 1 tablet by mouth once daily. Start at beginning of outbreak. 5 tablet 1 10/13/2024 Active Start: 03-13-2023 End: 06-20-2024 take 1 tablet by mouth once daily valACYclovir (VALTREX) 1 gram tablet Indications: Labial lesion TAKE 1 TABLET BY MOUTH ONCE DAILY. START AT BEGINNING OF OUTBREAK. 5 tablet 1 10/17/2023 06/20/2024 Discontinued Start: 02-12-2022 End: 02-17-2022 take 1 tablet by mouth once daily valACYclovir (VALTREX) 1 gram Indications: Labial lesion Take 1 tablet by mouth once daily for 5 days. Start at beginning of outbreak. 5 tablet 4 02/12/2022 02/17/2022 Active Comment on above: Take 1 tablet by tasha once daily for 5 days. Start at beginning of outbreak. Take 1 tablet by tasha th once daily. Start at beginning of outbreak. Completed/Discontinued Medications Medication Drug Class(es) Dates Sig (Normalized) Sig (Original) benzonatate 100 mg oral capsule (5 sources) Non-narcotic Antitussive Start: 08-19-2024 End: 08-26-2024 take 1 capsule by mouth three times daily as needed for cough benzonatate (TESSALON PERLE) 100 mg capsule Indications: Influenza Take 1 capsule by mouth three times a day as needed for cough for up to 7 days. 21 capsule 08/19/2024 08/26/2024 brompheniramine maleate 0.4 mg/ml / dextromethorphan hydrobromide 2 mg/ml / pseudoephedrine hydrochloride 6 mg/ml oral solution (14 sources) alpha-Adrenergic Agonist, Uncompetitive A-rkgxbv-G-aspartat e Receptor Antagonist, Sigma-1 Agonist Start: 10-31-2022 End: 12-24-2023 take 10 mL by mouth every six hours as needed Brompheniramine-Pse udoeph-DM (BROMFED DM) 2-30-10 mg/5 mL syrup Take 10 mL by mouth four times daily as needed. 200 mL 0 10/31/2022 12/24/2023 Discontinued Comment on above: Take 10 mL by mouth four times daily as needed. busPIRone hydrochloride 5 mg oral tablet (20 sources) Start: 07-04-2020 End: 12-24-2023 take 1 tablet by mouth twice daily busPIRone (BUSPAR) 5 mg tablet Take 1 tablet by mouth twice daily. 180 tablet 0 07/04/2020 12/24/2023 Discontinued Comment on above: Take 1 tablet by tasha twice daily. cyclobenzaprine hydrochloride 10 mg oral tablet (1 source) Muscle Relaxant Start: 01-28-2019 End: 06-09-2023 take 10 mg by mouth three times daily Cyclobenzaprine Discontinued 10 MG PO THREE TIMES A DAY January 27, 2019 11:00pm June 09, 2023 6:19pm gabapentin 100 mg oral capsule (20 sources) Anti-epileptic Agent Start: 09-26-2020 End: 12-24-2023 take 1 capsule by mouth three times daily gabapentin (NEURONTIN) 100 mg capsule Take 1 capsule by mouth three times daily for 30 days. 90 capsule 0 09/26/2020 12/24/2023 Discontinued Comment on above: Take 1 capsule by mo [facility] three times daily for 30 days. hydrocortisone 25 mg/ml topical cream (20 sources) Corticosteroid Start: 11-08-2020 End: 12-24-2023 hydrocortisone (PROCTOZONE-HC) 2.5 % rectal cream Indications: Perirectal skin irritation Apply to irritated skin twice daily as needed 28 g 1 11/08/2020 12/24/2023 Discontinued Comment on above: Apply to irritated s kin twice daily as needed hydrocortisone acetate 25 mg/ml / pramoxine hydrochloride 10 mg/ml rectal cream (20 sources) Corticosteroid Start: 11-04-2020 End: 12-24-2023 Hydrocortisone-Pram oxine 2.5-1 % (4g) crea Indications: Perirectal skin irritation by RECTAL route twice daily as needed. 4 g 1 11/04/2020 12/24/2023 Discontinued Comment on above: by RECTAL route twic e daily as needed. hydrOXYzine pamoate 25 mg oral capsule (19 sources) Antihistamine Start: 01-09-2022 End: 12-24-2023 take 1 capsule by mouth every eight hours as needed for anxiety and anxiety hydrOXYzine pamoate (VISTARIL) 25 mg capsule Indications: Anxiety Take 1 capsule by mouth three times daily as needed. 10 capsule 0 01/09/2022 12/24/2023 Discontinued Comment on above: Take 1 capsule by [facility] three times daily as needed. naproxen 500 mg oral tablet (4 sources) Nonsteroidal Anti-inflammatory Drug Start: 10-22-2023 End: 12-24-2023 take 1 tablet by mouth twice daily as needed for pain naproxen (NAPROSYN) 500 mg tablet Indications: Chronic bilateral low back pain without sciatica , Chronic bilateral thoracic back pain Take 1 tablet by mouth two times a day as needed (for pain/inflammation). Take with food. 30 tablet 0 10/22/2023 12/24/2023 Discontinued Start: 01-28-2019 End: 06-09-2023 take 500 mg by mouth twice daily as needed Naproxen Discontinued 500 MG PO TWICE DAILY NEEDED January 27, 2019 11:00pm June 09, 2023 6:19pm triamcinolone acetonide 5 mg/ml topical cream (20 sources) Corticosteroid Start: 10-13-2020 End: 12-24-2023 triamcinolone acetonide (KENALOG) 0.5 % cream apply to affected area three times a day for 7 days 0 10/13/2020 12/24/2023 Discontinued Comment on above: apply to affected ar ea three times a day for 7 days Problems Active Problems Problem Classification Problem Date Documented Date Episodic/Chronic Anxiety disorders (2 sources) Anxiety; Translations: [Anxiety disorder, unspecified] Chronic Esophageal disorders (1 source) Gastro-esophageal reflux disease without esophagitis; Translations: [Gastroesophageal reflux disease, unspecified whether esophagitis present] Onset: 11-13-2024 Chronic Immunizations and screening for infectious disease (6 sources) Patient encounter status; Translations: [Encounter for screening for infections with a predominantly sexual mode of transmission] Episodic Inflammatory diseases of female pelvic organs (1 source) Acute vaginitis; Translations: [Acute vaginitis] Episodic Influenza (1 source) Influenza; Translations: [Influenza due to unidentified influenza virus with other respiratory manifestations] 08-19-2024 Episodic Nonmalignant breast conditions (5 sources) Pain of breast; Translations: [Mastodynia] Episodic Nonspecific chest pain (1 source) Chest pain, unspecified; Translations: [Chest pain, unspecified] Onset: 04-04-2024 Episodic Other ear and sense organ disorders (1 source) Otalgia, left ear; Translations: [Otalgia, unspecified] 02-04-2024 Episodic Other female genital disorders (6 sources) Lesion of labia; Translations: [Other specified noninflammatory disorders of vulva and perineum] Episodic Other female genital disorders (1 source) Vaginal irritation; Translations: [Other specified noninflammatory disorders of vagina] 10-08-2024 Episodic Other lower respiratory disease (2 sources) Cough; Translations: [Acute cough] 08-25-2024 Episodic Other screening for suspected conditions (not mental disorders or infectious disease) (5 sources) Cancer cervix screening status; Translations: [Encounter for screening for malignant neoplasm of cervix] Onset: 01-09-2024 08-23-2023 Episodic Other upper respiratory infections (5 sources) Sore throat symptom; Translations: [Acute pharyngitis, unspecified] Episodic Otitis media and related conditions (5 sources) Dysfunction of right eustachian tube; Translations: [Unspecified Eustachian tube disorder, right ear] Onset: 09-04-2023 10-22-2023 Episodic Unclassified (1 source) Acute cough; Translations: [Acute cough] Onset: 08-25-2024 Viral infection (1 source) Viral disease; Translations: [Viral infection, unspecified] 06-09-2023 Episodic Past or Other Problems Problem Classification Problem Date Documented Date Episodic/Chronic Adjustment disorders (20 sources) Adjustment disorder; Translations: [Adjustment disorder, unspecified] Resolved: 12-12-2016 12-12-2016 Chronic Contraceptive and procreative management (4 sources) Contraception status; Translations: [Encounter for removal and reinsertion of intrauterine contraceptive device] Onset: 10-08-2024 10-08-2024 Episodic Genitourinary symptoms and ill-defined conditions (2 sources) Dysuria; Translations: [Dysuria] Onset: 10-08-2024 10-08-2024 Episodic Nausea and vomiting (4 sources) Nausea and vomiting; Translations: [Nausea with vomiting, unspecified] Onset: 08-25-2024 Episodic Other complications of (20 sources) Hyperemesis gravidarum; Translations: [Mild hyperemesis gravidarum] Onset: 06-04-2014 Resolved: 12-12-2016 12-12-2016 Episodic Other connective tissue disease (1 source) Pain in right leg; Translations: [Pain in both lower extremities] Onset: 11-13-2024 Episodic Other connective tissue disease (1 source) Pain in left leg; Translations: [Pain in both lower extremities] Onset: 11-13-2024 Episodic Other female genital disorders (20 sources) Cervical intraepithelial neoplasia grade 2; Translations: [Moderate cervical dysplasia] Onset: 09-01-2018 09-01-2018 Episodic Other female genital disorders (1 source) Other specified noninflammatory disorders of vagina; Translations: [Vaginal irritation] Onset: 10-08-2024 Episodic Other non-traumatic joint disorders (1 source) Other specified joint disorders, left shoulder; Translations: [Impingement of left shoulder] Onset: 11-13-2024 Episodic Other and delivery including normal (20 sources) Normal ; Translations: [Encounter for supervision of other normal , unspecified trimester] Onset: 04-29-2014 Resolved: 12-12-2016 06-19-2021 Episodic Residual codes; unclassified (1 source) Sleep deprivation; Translations: [Sleep deprivation] Onset: 11-13-2024 Episodic Spondylosis; intervertebral disc disorders; other back problems (20 sources) Chronic low back pain; Translations: [Chronic bilateral low back pain without sciatica] Onset: 11-19-2023 10-22-2023 Episodic Results Test Name Value Interpretation Reference Range Facility [facility] 02-16-2025 CNOV Office Visit (WOUCA) FLORENCIA SENA ([id number]) 1990 F Date Time Provider Department 02/16/25 4:00 PM ELISA GELLER During your visit today, we recorded the following information about you: Temperature Pulse Respiration Blood pressure 98.2 degrees 94/minute 16/minute 122/80 Weight 72.9 kg Elisa Geller APRN.ASSEMBLER TUBING 02/16/2025 4:08 PM Signed [facility] Subjective Florencia Sena is a 34 year old female. Patient presents with: Ear Pain: left increased last night Ear Pain The patient is a 34-year-old female presenting with acute onset left otalgia. Left Otalgia: - Onset last night; described as throbbing pain. - Initially intermittent in both ears, but intensified in the left ear this morning. - Denies recent URI symptoms, fever, or sore throat. - No otorrhea or hearing loss. - Has not taken any medication for the pain. - Denies recent swimming. Review of Systems Constitutional: (-) fever Ears/Nose/Mouth/Throa t: (+) left ear pain, (-) hearing loss, (-) ear discharge, (-) nasal congestion, (-) rhinorrhea, (-) sore throat Respiratory: (-) cough Objective BP 122/80 Pulse 94 Temp 36.8 ?C (98.2 ?F) Resp 16 Wt 72.9 kg (160 lb 11.5 oz) LMP 11/22/2016 (LMP Unknown) SpO2 98% BMI 32.46 kg/m? 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 - levonorgestrel (MIRENA) 21 mcg/24hr (up to 8 yrs) 52 mg IUD 1 each by INTRAUTERINE route as directed. - valACYclovir (VALTREX) 1 gram tablet Take 1 tablet by mouth once daily. Start at beginning of outbreak. - amoxicillin (AMOXIL) 875 mg tablet Take 1 tablet by mouth two times a day for 7 days. FAMILY HISTORY Problem Relation Age of Onset - Cancer Mother - Anxiety disorder Mother - Bipolar disorder Father - Cancer Paternal Grandfather - Breast Cancer Paternal Grandmother - Thyroid Maternal Aunt - Breast Cancer Maternal Aunt SOCIAL HISTORY[1] Physical Exam Vitals and nursing note reviewed. Constitutional: General: She is not in acute distress. Appearance: Normal appearance. She is not ill-appearing. HENT: Right Ear: Tympanic membrane, ear canal and external ear normal. Left Ear: Ear canal and external ear normal. A middle ear effusion is present. Tympanic membrane is injected. Nose: Nose normal. Mouth/Throat: Mouth: Mucous membranes are moist. Pharynx: Oropharynx is clear. No oropharyngeal exudate or posterior oropharyngeal erythema. Cardiovascular: Rate and Rhythm: Normal rate and regular rhythm. Heart sounds: Normal heart sounds. Pulmonary: Effort: Pulmonary effort is normal. No respiratory distress. Breath sounds: Normal breath sounds. No wheezing or rales. Lymphadenopathy: Cervical: No cervical adenopathy. Skin: General: Skin is warm and dry. Findings: No erythema or rash. Neurological: Mental Status: She is alert. { 1. Non-recurrent acute serous otitis media of left ear (H65.02) - Acute onset of left ear pain with fluid visualized behind the tympanic membrane on exam. - Start antibiotic therapy. - Start Flonase nasal spray to help eliminate middle ear fluid and reduce pressure. - Tylenol or ibuprofen as needed for pain; advised that pain should improve after a couple doses of antibiotic. - Follow-up with your PCP in 3-5 days if symptoms have not improved or sooner if symptoms worsen - Discussed red flags and need for immediate medical evaluation if any occur. - Discussed supportive care treatment with fluids, rest and analgesia. - Discussed expected course of illness Elisa Geller APRN.ASSEMBLER TUBING and Recording using [employer] software for draft documentation of the visit was discussed with the patient/authorized sales representative groceries; all questions welcomed and answered. Patient/authorized sales representative groceries agreed to proceed Disposition The patient was discharged. OTC Medications were advised: Procedures [1] Social History Tobacco Use - Smoking status: Former Types: Cigarettes - Smokeless tobacco: Never Vaping Use - Vaping status: Never Used Substance Use Topics - Alcohol use: Yes Comment: occasionally - Drug use: No Prais (more content not included)... Normal [facility] CNOVon 11-13-2024 CNOV Office Visit (INTMWS ) FLORENCIA SENA ([id number]) 1990 F Date Time Provider Department 11/13/24 12:40 PM NINA PHILLIP INTMWS During your visit today, we recorded the following information about you: Pulse Respiration Blood pressure Weight 82/minute 16/minute 106/74 75 kg Nina Phillip APRN.HEALTH AND FITNESS PROFESSOR 11/13/2024 1:27 PM Signed Subjective Patient ID: Florencia is a 34 year old female who presents for Swelling (B/L leg). HPI Presents today regarding leg pain and swelling and intermittent chest pain. Called the office in February 2024 reporting chest pressure that was intermittent for 1 week. She was advised to go to the emergency department. Negative workup at [facility] at that time. Florencia is a 34-year-old female presenting with bilateral leg pain, left arm numbness, and nocturnal right sided chest pain with GERD. Bilateral Leg Pain: - Severe bilateral leg pain after 12-hour shifts, especially towards the end of the shift. - Pain described as a sensation of swelling, though no visible edema seen. - Noted mild swelling in feet prior to using compression socks. - Varicose vein present on the right lateral thigh. - Pain radiates to the lower back at times. - Wears barefoot-style shoes at work. - Takes ibuprofen PRN, approximately every other day. Left Arm Numbness: - Numbness in the left arm when lying on it or placing it under a pillow. - Symptoms present for several months, occurring daily with pressure. - No decreased accordion maker strength or difficulty with fine motor tasks. Normal sensation ROM and strength is present in LUE. Nocturnal Chest Pain: - Intermittent sharp chest pain on the right side, radiating to the back, occurring during sleep. - Pain described as severe, causing immobility until it subsides. - Recent episode alleviated by movement. - History of acid reflux; took Tums once with minimal relief. - Nocturnal pain occasionally associated with eating before bed. Nausea and Vomiting: - History of recurrent vomiting episodes over the past year, reports previously lasting for months at a time. - Currently not experiencing vomiting; uncertain if episodes will recur. - Reports discussed vomiting with Dr. Mcclain previously. Lifestyle: - Works full-time night shifts, 12-hour shifts QOD with breaks in between. - Attempts to maintain a regular day-night schedule on days off. - Sleeps 2-3 hours during the day after night shifts, then tries to sleep at night. - Diet and hydration reportedly disrupted by work schedule; attempts to drink fluids during shifts. Without reported shortness of breath on exertion palpitations edema presyncope syncope. Last 3 Encounter BP Readings: Date: BP: 10/15/2024 112/80 10/08/2024 120/80 08/25/2024 120/80 ROS Constitutional: (+) fatigue, (+) sleep disturbance, (+) weight gain Cardiovascular: (+) left-sided chest pain, (-) leg swelling Gastrointestinal: (-) heartburn, (-) nausea, (-) vomiting, (-) abdominal pain Musculoskeletal: (+) bilateral leg pain, (+) back pain Neurological: (+) left arm numbness, (-) weakness Objective BP 106/74 (BP Site: Left Arm, BP Position: Sitting, BP Cuff Size: Regular Adult) Pulse 82 Resp 16 Wt 75 kg (165 lb 5.5 oz) LMP 11/22/2016 (LMP Unknown) BMI 33.40 kg/m? Physical Exam Vitals and nursing note reviewed. Constitutional: Appearance: Normal appearance. HENT: Head: Normocephalic and atraumatic. Eyes: Conjunctiva/sclera: Conjunctivae normal. Cardiovascular: Rate and Rhythm: Normal rate and regular rhythm. Heart sounds: Normal heart sounds. Pulmonary: Effort: Pulmonary effort is normal. Abdominal: General: Bowel sounds are normal. Palpations: Abdomen is soft. Musculoskeletal: Right shoulder: No tenderness. Normal range of motion. Normal strength. Normal pulse. Left shoulder: No tenderness. Normal range of motion. Normal strength. Normal pulse. Right lower leg: No swelling. No edema. Left lower leg: No swelling. No edema. Skin: General: Skin is warm and dry. Neurological: General: No focal deficit present. Mental Status: She is alert and oriented to person, place, and time. 1. Gastroesophageal reflux disease, unspecified whether esophagitis present (K21.9) - Symptoms include nocturnal chest pain radiating to the back, with recent episodes causing severe discomfort. - Previous ER visit in February at [facility] with normal EKG and imaging. - Advised dietary modifications: small, frequent meals, avoid eating 3-4 hours before bedtime, and elevate the head of the bed. - Recommended avoidance of caffeine and alcohol. - Initiated Prilosec daily. - If symptoms persist or frequent vomiting resumes, referral to gastroenterology for further evaluation, including possible EGD. 2. Impingement of left shoulder (M25.812) HPI consistent with impingement - Numbness in the left a (more content not included)... Normal [facility] CNCOon 10-15-2024 CNCO Letter Text Normal [facility] CNOVon 10-15-2024 CNOV Office Visit (OBGYWM ) FLORENCIA SENA ([id number]) 1990 F Date Time Provider Department 10/15/24 1:40 PM LIN LÓPEZ During your visit today, we recorded the following information about you: Blood pressure Weight 112/80 74.4 kg Lin López MD 10/15/2024 2:06 PM Signed Florencia presents for removal of IUD due to expiration of IUD. UNIVERSAL PROTOCOL / SAFETY CHECKLIST Procedure to be Performed: IUD removal Sign In: A Moment of CARE was completed. Appropriate PPE (Personal Protective Equipment) worn by all providers involved with the procedure. Special equipment not required. Patient/Surrogate Stated/Verified: Patient name, Date of , Relevant allergies, and The intended procedure Time Out: Relevant labs, photos, and/or imaging studies have been reviewed. Intended patient and procedure match the source document(s) (e.g. consent, HANDP, associated studies [imaging, pathology]) match the intended patient and procedure. Consent obtained and matches the intended procedure. Yes. Correct side/site is not applicable. Medications required for this procedure are not applicable. Fire risk assessed and is not applicable. Implants: Correct implant(s) confirmed including size and side. Expiration date(s) reviewed. Sign Out: Specimens not collected. All instruments, equipment, possible retained foreign bodies are accounted for. Yes. The post-procedure plan of care has been communicated to the patient or surrogate. PROCEDURE: Speculum placed in vagina, IUD string visualized and grasped with ring forceps. ASSESSMENT/PLAN: IUD removed without difficulty, intact, and patient tolerated procedure well. Contraception plans: Mirena IUD Lin López MD Florencia presents today for IUD insertion for contraception. Patient's last menstrual period was 11/22/2016 (lmp unknown). GC/chlamydia: Not done: no risk factors and/or patient declines screening test: n/a Side effects including irregular bleeding were discussed with the patient. The patient understands that it should be removed in 8 years or sooner if the patient desires a . IUD source: office provided IUD lot #: [id number] Exp date: 11/20/2026 The cervix was prepped with betadine. The uterus sounded to 7 cm and the uterus is Retroverted.. Using sterile technique, the Mirena IUD was inserted without difficulty and the string was cut to 3 cm from the external os of the cervix. Patient tolerated procedure well. PLAN: Patient was advised to observe for signs and symptoms of infection including but not limited to fever, malodorous vaginal discharge and/or pain. The patient was told to check the string monthly for accurate placement. Bleeding expectations were reviewed. Follow up for next annual exam or sooner as needed. MD Nalini Vargas [facility] [place] 10/15/2024 1:08 PM Signed POST IUD INSTRUCTIONS You may have irregular bleeding during the first 3 months of use. You may have mild-severe cramping for the next 48 hours. You may use over the counter medication (Motrin, Tylenol) as needed. Your IUD must be removed or replaced based on the following table: IUD Type Removed or replaced within: Fannie 3 years Kyleena 5 years Mirena 8 years Liletta 8 years Paragard 10 years Call the office for signs/symptoms of infection such as severe cramping, fever, or unusual bleeding. Check for string placement as instructed by your doctor. If you have any additional questions, please contact the office. Referring Provider: BETO VARGAS [[id number]] Allergies As of Date: 10/15/2024 Noted Allergy Reaction MACROBID (NITROFURANTOIN MONOHYD/*10/11/2014 2 - Rash CIPROFLOXACIN 04/03/2017 2 - Rash LEXAPRO (ESCITALOPRAM OXALATE) 05/10/2015 5 - Intolerance Comments: dilates pupils, muscle spasms, sleeping issues(afraid to go to sleep) Date Reviewed: 10/15/2024 Reviewed by: Lin López MD - Fully Assessed Reason for Visit: Insertion Of IUD [291] Cmt: Removal and insertion Primary Visit Diagnosis:Encounter for IUD removal and reinsertion [Z30.433] Other Visit Diagnosis:Encounter for IUD insertion [Z30.430] Order(s):[] levonorgestrel 21 mcg/24hr (up to 8 yrs) 52 mg 1 each intrauterine device (MIRENA)Disp: Rfl: levonorgestrel (MIRENA) 21 mcg/24hr (up to 8 yrs) 52 mg IUD1 each by INTRAUTERINE route as directed.Disp: 1 eachRfl: 0 Prescriptions as of 10/15/2024 - levonorgestrel (MIRENA) 21 mcg/24hr (up to 8 yrs) 52 mg IUD 1 each by INTRAUTERINE route as directed. - valACYclovir (VALTREX) 1 gram tablet Take 1 tablet by mouth once daily. Start at beginning of outbreak. Problem List As Of Date 10/15/2024 Noted Resolved Supervision of other normal [Z34.80] 04/29/2014 12/12/2016 Hyperemesis gravidarum, antepartum [O21.0] 06/04/2014 12/12/2016 Adjustment reaction [F43.20] 12/12/2016 (more content not included)... Normal [facility] BACTERIAL VAGINOSIS NAATon 0 10-08-2024 Lactobacillus crispatus+gasseri+jense denice + Gardnerella vaginalis + Atopobium vaginae rRNA [place]A+probe Ql (Vag fld) Not detected Normal Not detected [facility] Comment on above: Order Comment: Speci men Type: SWABOrdering Facility: [facility] Address: [address] [place] [address] Performed By: #### C VTV, BVAMP ####[facility] LABCLIA [id number] [place] [address] [place] Bacteria Ur Culton 5 Bacteria identified Cx Nom (U) ORGANISM ID: 1 50,000-<100,000 CFU/ml Mixed microbiota No further workup. Mixed microbiota can be due to???urine???contamin ation with skin bacteria at time of collection or presence of a long-term urinary catheter. If a new culture is needed, please consider re-education of the patient on proper midstream collection technique or straight catheterization for???urine???collect ion. Normal [facility] Comment on above: Performed By: #### 6 30-4 ####[facility] LABCLIA [id number] [place] [address] [place] [facility] [place] LISA/TRICHOMONAS NAATon 0 10-08-2024 C. glabrata RNA [place]+probe Ql (Vag fld) Not detected Normal Not detected [facility] Comment on above: Order Comment: Speci men Type: SWABOrdering Facility: [facility] Address: [address] [place] [address] Performed By: #### C VTV, BVAMP ####[facility] LABIA [id number] [address] OF [place] Lisa sp DNA A[place]USTA+probe Ql (Vag fld) Not detected Normal Not detected [facility] Comment on above: Order Comment: Speci men Type: SWABOrdering Facility: [facility] Address: [address] [place] [address] Result Comment: The Lisa species group target includes C. albicans, C. tropicalis, C. parapsilosis, and C. dubliniensis. Performed By: #### C VTV, BVAMP ####[facility] LABIA [id number] [address] [place] T. vaginalis DNA A[place]USTA+probe Ql (Unsp spec) Not detected Normal Not detected [facility] Comment on above: Order Comment: Speci men Type: SWABOrdering Facility: [facility] Address: [address] [place] [address] Performed By: #### C VTV, BVAMP ####[facility] LABCLIA [id number] [place] [address] [place] CNOVon 10-08-2024 CNOV Office Visit (OBGYWM ) FLORENCIA SENA ([id number]) 1990 F Date Time Provider Department 10/08/24 3:40 PM BETO VARGAS OBGYWM During your visit today, we recorded the following information about you: Blood pressure Weight Height 120/80 74.3 kg 1.499 m Beto Vargas MD 10/08/2024 4:06 PM Signed Palliative Senior Np offered: Patient declines. Florencia is a 34 year old who presents with vaginal irritation and dysuria. Also she thinks her IUD needs removed. 3 days of pain and swelling of the labia. Painful to sit. Most painful when pushing to pee. Denies fevers or chills, hematuria, vaginal bleeding. History of HSV2. Took ibuprofen with no improvement. Denies use of creams/ointments. Reports occasional dyspareunia, no bleeding with sex. Denies itching and burning, denies abnormal discharge, reports vaginal odor from recurrent BV. Declines STD screening. Denies new fragrances, detergents, soaps. Using Dove sensitive skin for body wash. Age at Menarche: 15 Still get period: No LMP: n/a iud Time with current partner: 8 years control frequency: Always HPV vaccine: Yes, one injection, had a reaction HPV:negative Last pap smear: 08/22/2023 History of abnormal pap: Hx of ASCUS in 2019, LEEP 2019 Bothersome pelvic pain: No Last mammogram: 2023normal OB History Gravida2 Para1 Term1 Preterm0 AB1 Living1 SAB1 IAB0 Ectopic0 Multiple0 Live Births1 FAMILY HISTORY Problem Relation Age of Onset Cancer Mother Anxiety disorder Mother Bipolar disorder Father Cancer Paternal Grandfather Breast Cancer Paternal Grandmother Thyroid Maternal Aunt Breast Cancer Maternal Aunt SOCIAL HISTORY Social History Tobacco Use Smoking status: Former Types: Cigarettes Smokeless tobacco: Never Vaping Use Vaping status: Never Used Substance Use Topics Alcohol use: Yes Comment: occasionally Drug use: No REVIEW OF SYSTEMS Abdomen: No abdominal pain, nausea, vomiting, diarrhea, or constipation. No bloating, early satiety, indigestion. Reports gas. Reports fecal urgency without diarrhea. Bladder: No dysuria, gross hematuria, urinary frequency, or incontinence. Reports mild urgency. Breast: No nipple d/c, overlying skin changes, redness or skin retraction. Reports breast lumps monitored with mammogram. Allergies and current medication updated:Yes SENSITIVE EXAM: The sensitive examination was discussed with the Patient or Patient's Authorized Manager Internet. As applicable, any other physician, advance practice provider, medical student, or other health professional student that will be observing or involved in the sensitive examination for educational or training purposes was discussed with the Patient or Authorized Manager Internet. The Patient or Authorized Manager Internet has agreed to proceed with the sensitive examination. (Sensitive examination includes inspection and/or palpation of the breasts, pelvis, prostate and anorectal regions). EXAM: BP 120/80 Ht 4' 11 (1.50m) Wt 163 lb 12.8 oz (74.3kg) LMP 11/22/2016 BMI 33.07 kg/(m2). GENERAL: pleasant, female in no apparent distress PELVIC: external genitalia normal, normal Bartholin's glands, urethra, Suitland's glands, no vulvar lesions, no cervical lesions, good vaginal support, white discharge present, normal appearing perineal body and perianal region ASSESSMENT AND PLAN: Assessment AND Plan Dysuria Orders: UA DIP, URINE (POC) BACTERIAL VAGINOSIS NAAT LISA/TRICHOMONAS NAAT BACTERIAL CULTURE, URINE Encounter for IUD removal and reinsertion Orders: INSERT INTRAUTERINE DEVICE REMOVE INTRAUTERINE DEVICE Vaginal irritation Vaginal infection testing Cervical cancer screening H/o LEEP Orders: PAP TEST Medical Decision Making: Problems: Low: Acute, uncomplicated illness or injury Data: Unique test(s) ordered: 3+ Risk: Moderate: Drug management Medical Decision Making Level: 4 - Moderate MD Beto Roland MD Allergies As of Date: 10/08/2024 Noted Allergy Reaction MACROBID (NITROFURANTOIN MONOHYD/*10/11/2014 2 - Rash CIPROFLOXACIN 04/03/2017 2 - Rash LEXAPRO (ESCITALOPRAM OXALATE) 05/10/2015 5 - Intolerance Comments: dilates pupils, muscle spasms, sleeping issues(afraid to go to sleep) Date Reviewed: 10/08/2024 Reviewed by: Lor Mora MA - Fully Assessed Reason for Visit: Well Woman [1463] Primary Visit Diagnosis:Dysuria [R30.0] Other Visit Diagnoses:Encounter for IUD removal and reinsertion [Z30.433] Vaginal irritation [N89.8] Cervical cancer screening [Z12.4] Special screening examination for human papillomavirus (HPV) [Z11.51] Order(s):UA DIP, URINE (POC) [6806396] Order #: [id number]. #:[id number] BACTERIAL VAGINOSIS NAAT [SQBVAMP] Order #: [id number]. #:[id number] LISA/TRICHOMONAS NAAT [SQCVTV] Order #: [id number] (more content not included)... Normal [facility] HIGH RISK HUMAN PAPILLOMA GIULIA (HPV), PCR FOR DETECTION AND GENOTYPINGon 10-08-2024 HPV 16 Ag Ql (Unsp spec) Not detected Normal Not detected [facility] Comment on above: Order Comment: Speci men Type: FLUID SPECIMENOrdering Facility: [facility] Address: [address] [place] [address] Performed By: #### H PVHRT ####[facility] LABCLIA [id number] [address] [place] HPV 18 Ag Ql (Unsp spec) Not detected Normal Not detected [facility] Comment on above: Order Comment: Speci men Type: FLUID SPECIMENOrdering Facility: [facility] Address: [address] [place] [address] Performed By: #### H PVHRT ####[facility] LABCLIA [id number] [place] [address] [place] HPV 31+33+35+39+45+51+52+56 +58+59+66+68 DNA AUGUSTA+probe Ql (Cvx) Not detected Normal Not detected [facility] Comment on above: Order Comment: Speci men Type: FLUID SPECIMENOrdering Facility: [facility] Address: [address] [place] [address] Result Comment: High Risk HPV Other Type includes HPV types 31, 33, 35, 39, 45, 51, 52, 56, 58, 59, 66 and 68. Performed By: #### H PVHRT ####[facility] LABCLIA [id number] [address] [place] [address] [place] PAP TESTon 10-08-2024 ADEQUACY Normal [facility] Comment on above: Order Comment: Speci men Type: FLUID SPECIMENOrdering Facility: [facility] Address: [address] [id number] Result Comment: Sati sfactory for interpretation. Transformation zone present Performed By: #### L [id number] ####[facility] LABCLIA [id number] [address] [address] [place] CASE REPORT Normal [facility] Comment on above: Order Comment: Speci men Type: FLUID SPECIMENOrdering Facility: [facility] Address: [address] [place] [address] Result Comment: Gyne cologic Cytology Report Case: [id number] Authorizing Provider: Beto Vargas MD Collected: 10/08/2024 04:07 PM Ordering Location: OB/Gynecology Received: 10/08/2024 04:33 PM First Screen: Zhorova, [place], [place], ASCP Rescreen: Gladkaya, [place], [place], ASCP Specimen: Pap Test, ThinPrep, Cervix Performed By: #### L [id number] ####[facility] LABCLIA [id number] [address] [address] [place] CLINICAL HISTORY, CYTOLOGY, HIGH SCHOOL SCIENCE TUTOR Intra Uterine Device, No Menses Normal [facility] Comment on above: Order Comment: Speci men Type: FLUID SPECIMENOrdering Facility: [facility] Address: [address] [id number] Performed By: #### L [id number] ####[facility] LABCLIA [id number] [address] [address] [place] FINAL PERFORMING LAB Normal [facility] Comment on above: Order Comment: Speci men Type: FLUID SPECIMENOrdering Facility: [facility] Address: [address] [id number] Result Comment: Tech nical component, relocation specialist screening performed at [facility], [facility] [place] [address] CLIA# [id number] Diagnostic interpretation performed at [facility], [address] [place] [address] CLIA# [id number] Tape Fastener Machine Operator: David Ho M.D. Performed By: #### L [id number] ####[facility] LABIA [id number] [place] [id number] [place] INTERPRETATION, CYTOLOGY, HIGH SCHOOL SCIENCE TUTOR Normal [facility] Comment on above: Order Comment: Speci men Type: FLUID SPECIMENOrdering Facility: [facility] Address: [address] [place] [address] Result Comment: Nega tive for intraepithelial lesion or malignancy. at 1552 EDT Performed By: #### L [id number] ####[facility] LABIA [id number] [place] [address] [place] PAP DISCLAIMER COMMENT The Pap Smear is a screening test for cervical cancer. False negative results occur with all screening tests, emphasizing the need for rescreening at recommended intervals, and clinical correlation. Normal [facility] Comment on above: Order Comment: Speci men Type: FLUID SPECIMENOrdering Facility: [facility] Address: [address] [place] [address] Performed By: #### L [id number] ####[facility] LABCLIA [id number] [place] [id number] [place] PAP STORE TEAM LEADER COMMENT This specimen has been analyzed by the ThinPrep Imaging System, an automated imaging and review system, which assists the laboratory in evaluating cells on ThinPrep Pap tests. Following automated imaging, selected byrd from every slide are reviewed by a relocation specialist. Normal [facility] Comment on above: Order Comment: Speci men Type: FLUID SPECIMENOrdering Facility: [facility] Address: [address] [place] [address] Performed By: #### L [id number] ####[facility] LABCLIA [id number] [place] [address] [place] UA DIP, URINE (POC)on 2024 BILIRUBIN UA (POCT) Negative Negative [facility] CLARITY UA (POCT) Cloudy [facility] COLOR UA (POCT) Dark yellow [facility] GLUCOSE UA (POCT) Negative Negative mg/dL [facility] Hemoglobin Ql (U) Negative Negative [facility] KETONE UA (POCT) Negative Negative mg/dL [facility] LEUKOCYTES UA (POCT) Negative Negative [facility] NITRITE UA (POCT) Negative Negative [facility] PH UA (POCT) 5.5 4.5 - 8.0 [facility] Protein Ql (U) Negative Negative mg/dL [facility] SPECIFIC GRAVITY UA (POCT) >=1.030 1.005 - 1.030 [facility] UROBILINOGEN UA (POCT) 0.2 Apurva l E.U./dL [facility] Location:[facility], [address] [facility], [place], [place], [id number] [place] [address] POINT OF CARE [facility] CNOVon 08-25-2024 CNOV Office Visit (FAMPWS ) FLORENCIA SENA ([id number]) 1990 F Date Time Provider Department 08/25/24 9:40 AM RINA ESPINAL FAMPWS During your visit today, we recorded the following information about you: Temperature Pulse Respiration Blood pressure 97.3 degrees 88/minute 16/minute 120/80 Weight 73.6 kg Rina Espinal PA-C 09/01/2024 8:19 AM Signed 08/25/2024 Patient presents with: URI: With intermittent diarrhea/vomiting x1 week SUBJECTIVE: This is a 34 year old that is here today for Complaint(s) of cough 1 week ago. Had a cough for 2 days. Then started with diarrhea, vomiting, fever/chills. She was seen in . Now having nasal congestion. Treated for possible flu with Tamilfu 75, never tested for influenza. Continues to have productive cough. Mild SOB, but also feels like her nasal congestion is contributing. Denies chest pain, wheezing. Last episode of vomiting this morning. Has had diarrhea/vomiting x 2 days, but intermittent. No blood in the stools, black or tarry. PAST MEDICAL HISTORY Diagnosis Date Adjustment reaction Asthma as a baby Hypoglycemia ALLERGIES Macrobid [Nitrofurantoin Monohyd/M-Cryst], Ciprofloxacin, and Lexapro [Escitalopram Oxalate] MEDICATIONS Current Outpatient Medications Medication Sig benzonatate (TESSALON PERLE) 100 mg capsule Take 1 capsule by mouth three times a day as needed for cough for up to 7 days. valACYclovir (VALTREX) 1 gram tablet Take 1 tablet by mouth once daily. Start at beginning of outbreak. No current facility-administered medications for this visit. SOCIAL HISTORY Social History Tobacco Use Smoking status: Former Types: Cigarettes Smokeless tobacco: Never Vaping Use Vaping status: Never Used Substance Use Topics Alcohol use: Yes Comment: occasionally Drug use: No REVIEW OF SYSTEMS See HPI OBJECTIVE: BP 120/80 Pulse 88 Temp 36.3 ?C (97.3 ?F) (Temporal) Resp 16 Wt 73.6 kg (162 lb 3.2 oz) LMP 11/22/2016 (LMP Unknown) SpO2 98% BMI 32.76 kg/m? APPEARANCE Well appearing, alert, in no acute distress, well-hydrated, well nourished. EYES PERRLA, conjunctiva and sclera normal. EARS External ears normal, canals clear NOSE/SINUS Nares normal. Septum midline. Mucosa normal. No drainage or sinus tenderness. THROAT normal, no erythema NECK Supple, no adenopathy; thyroid symmetric, normal size, no bruits HEART RRR with normal S1 and S2, no murmurs, no gallops, no JVD appreciated LUNG clear to auscultation ABDOMEN bowel sounds normoactive, no bruits, soft, non-tender, non-distended, without organomegaly or palpable masses, no tenderness to palpation ASSESSMENT/PLAN: 1. Acute cough - ICD9: 786.2, ICD10: R05.1 (primary diagnosis) Supportive care with fluids and rest Check CXR today. F/u in 4-5 days if not improving, sooner if worsening - XR CHEST 2V FRONTAL/LAT - COVID AND INFLUENZA A/B AND RSV PCR, ROUTINE 2. Nausea and vomiting, unspecified vomiting type - ICD9: 787.01, ICD10: R11.2 Holcomb/BRAT diet once tolerating liquids for 24 hours Reviewed red flags and when to seek care sooner. Good hydration - XR CHEST 2V FRONTAL/LAT - COVID AND INFLUENZA A/B AND RSV PCR, ROUTINE The patient indicates understanding of these issues and agrees with the plan. Reviewed red flags and when to seek care sooner. ARIANNE RivasC Allergies As of Date: 08/25/2024 Noted Allergy Reaction MACROBID (NITROFURANTOIN MONOHYD/*10/11/2014 2 - Rash CIPROFLOXACIN 04/03/2017 2 - Rash LEXAPRO (ESCITALOPRAM OXALATE) 05/10/2015 5 - Intolerance Comments: dilates pupils, muscle spasms, sleeping issues(afraid to go to sleep) Date Reviewed: 08/25/2024 Reviewed by: Felicity Hamilton MA - Fully Assessed Reason for Visit: URI [115] Cmt: With intermittent diarrhea/vomiting x1 week Primary Visit Diagnosis:Acute cough [R05.1] Other Visit Diagnosis:Nausea and vomiting, unspecified vomiting type [R11.2] Order(s):XR CHEST 2V FRONTAL/LAT [[id number]] Order #: [id number] FUTURE COVID AND INFLUENZA A/B AND RSV PCR, ROUTINE [SQCVFLRS] Order #: [id number]. #:[id number] Prescriptions as of 09/01/2024 - valACYclovir (VALTREX) 1 gram tablet Take 1 tablet by mouth once daily. Start at beginning of outbreak. Problem List As Of Date 08/25/2024 Noted Resolved Supervision of other normal [Z34.80] 04/29/2014 12/12/2016 Hyperemesis gravidarum, antepartum [O21.0] 06/04/2014 12/12/2016 Adjustment reaction [F43.20] 12/12/2016 LOUIE II (cervical intraepithelial neoplasia II) *09/01/2018 Chronic bilateral low back pain without sciatic*11/19/2023 Chronic bilateral thoracic back pain [M54.6, G8*11/19/2023 Level of Service: OFFICE/OUTPATIENT ESTABLISHED LOW MDM 20 MIN [19409] Additional E/M codes: VISIT CPLX INHERENT EANDM ASSOC WITH MED * Letter Text Encounter Status:Closed b (more content not included)... Normal [facility] COVID & INFLUENZA A/B & RSV PCR, ROUTINEon 08-25-2024 FLUAV RNA AUGUSTA+probe Ql (Unsp spec) Not detected Not Detected [facility] FLUBV RNA AUGUSTA+probe Ql (Unsp spec) Not detected Not Detected [facility] Interpretation and review of laboratory results Normal [facility] RSV A RNA AUGUSTA+probe Ql (Unsp spec) Not detected Not Detected [facility] SARS-CoV-2 (COVID-19) RNA AUGUSTA+probe Ql (Unsp spec) Not detected See comment [facility] Reference Range (the expected result in uninfected individuals): Not detected [facility] XR CHEST 2V FRONTAL/LATon XR CHEST 2V FRONTAL/LAT * * *Final Repor t* * * DATE OF EXAM: Aug 25 2024 10:18AM WOX 5291 - XR CHEST 2V FRONTAL/LAT / PROCEDURE REASON: multiple diagnoses * * * * Physician Interpretation * * * * EXAMINATION: CHEST RADIOGRAPH (2 VIEW FRONTAL and LATERAL) CLINICAL HISTORY: Acute cough Nausea and vomiting MQ: XC2_6 EXAM DATE/TIME: 08/25/2024 10:18 AM COMPARISON: No relevant prior studies available. RESULT: Lines, tubes, and devices: None. Lungs and pleura: No consolidation. No lung mass. No pleural effusion. No pneumothorax. Cardiomediastinal silhouette: Normal cardiomediastinal silhouette. Bones and soft tissues: Unremarkable. IMPRESSION: No acute radiographic abnormality. Cnc Operator Machinist: PSCB Transcribe Date/Time: Aug 25 2024 10:21A Dictated by : TOI YOUNGER MD This examination was interpreted and the report reviewed and electronically signed by: TOI YOUNGER MD on Aug 25 2024 10:21AM EST [id number] Normal [facility] XR Chest PA and Lateralon IMPRESSION: No acute radiographic abnormality. Cnc Operator Machinist: DARRELL Transcribe Date/Time: Aug 25 2024 10:21A Dictated by : TOI YOUNGER MD This examination was interpreted and the report reviewed and electronically signed by: TOI YOUNGER MD on Aug 25 2024 10:21AM [facility] DIVISION OF RADIOLOGY * * *Final Report* * * DATE OF EXAM: Aug 25 2024 10:18AM WOX 5291 - XR CHEST 2V FRONTAL/LAT / PROCEDURE REASON: multiple diagnoses * * * * Physician Interpretation * * * * EXAMINATION: CHEST RADIOGRAPH (2 VIEW FRONTAL & LATERAL) CLINICAL HISTORY: Acute cough Nausea and vomiting MQ: XC2_6 EXAM DATE/TIME: 08/25/2024 10:18 AM COMPARISON: No relevant prior studies available. RESULT: Lines, tubes, and devices: None. Lungs and pleura: No consolidation. No lung mass. No pleural effusion. No pneumothorax. Cardiomediastinal silhouette: Normal cardiomediastinal silhouette. Bones and soft tissues: Unremarkable. DIVISION OF RADIOLOGY Provider, [facility] - 08/25/2024 * * *Final Report* * * DATE OF EXAM: Aug 25 2024 10:18AM WOX 5291 - XR CHEST 2V FRONTAL/LAT / PROCEDURE REASON: multiple diagnoses * * * * Physician Interpretation * * * * EXAMINATION: CHEST RADIOGRAPH (2 VIEW FRONTAL & LATERAL) CLINICAL HISTORY: Acute cough Nausea and vomiting MQ: XC2_6 EXAM DATE/TIME: 08/25/2024 10:18 AM COMPARISON: No relevant prior studies available. RESULT: Lines, tubes, and devices: None. Lungs and pleura: No consolidation. No lung mass. No pleural effusion. No pneumothorax. Cardiomediastinal silhouette: Normal cardiomediastinal silhouette. Bones and soft tissues: Unremarkable. IMPRESSION IMPRESSION: No acute radiographic abnormality. Cnc Operator Machinist: DARRELL Transcribe Date/Time: Aug 25 2024 10:21A Dictated by : TOI YOUNGER MD This examination was interpreted and the report reviewed and electronically signed by: TOI YOUNGER MD on Aug 25 2024 10:21AM [facility] Radiology Study observation (narrative) [facility] XR Chest PA and LateralOrder ed By: Ccf Provider on 08-25-2024 [facility] CNOVon 08-19-2024 CNOV Office Visit (UCWSTR ) FLORENCIA SEAN ([id number]) 1990 F Date Time Provider Department 08/19/24 9:00 AM AAKASH CARL WSTR During your visit today, we recorded the following information about you: Temperature Pulse Respiration Blood pressure 100.1 degrees 104/minute 18/minute 118/82 Weight 74.3 kg Carl Finn PA-C 08/19/2024 9:44 AM Signed This note was created using AirKastriter. Subjective Florencia Sena is a 34 year old female. Patient is a 34-year-old female who complains of fever, chills, body aches, congestion and cough that she has developed over the past 1 day. Patient has no history of asthma or COPD and does not smoke. 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 Cough Associated symptoms include chills and myalgias. Review of Systems Constitutional: Positive for chills, fatigue and fever. Respiratory: Positive for cough. Musculoskeletal: Positive for myalgias. All other systems reviewed and are negative. Objective BP 118/82 Pulse 104 Temp 37.8 ?C (100.1 ?F) (Tympanic) Resp 18 Wt 74.3 kg (163 lb 12.8 oz) LMP 11/22/2016 (LMP Unknown) SpO2 100% BMI 33.08 kg/m? Physical Exam Vitals and nursing note reviewed. Constitutional: Appearance: Normal appearance. She is normal weight. HENT: Head: Normocephalic and atraumatic. Right Ear: Tympanic membrane, ear canal and external ear normal. Left Ear: Tympanic membrane, ear canal and external ear normal. Nose: Nose normal. Mouth/Throat: Mouth: Mucous membranes are moist. Pharynx: Oropharynx is clear. Eyes: Extraocular Movements: Extraocular movements intact. Conjunctiva/sclera: Conjunctivae normal. Pupils: Pupils are equal, round, and reactive to light. Cardiovascular: Rate and Rhythm: Normal rate and regular rhythm. Pulses: Normal pulses. Heart sounds: Normal heart sounds. Pulmonary: Effort: Pulmonary effort is normal. Breath sounds: Normal breath sounds. Musculoskeletal: Cervical back: Normal range of motion and neck supple. Skin: General: Skin is warm and dry. Capillary Refill: Capillary refill takes less than 2 seconds. Neurological: General: No focal deficit present. Mental Status: She is alert and oriented to person, place, and time. Psychiatric: Mood and Affect: Mood normal. Behavior: Behavior normal. Thought Content: Thought content normal. Judgment: Judgment normal. Assessment and Plan Physical exam findings as noted above. Patient was provided with prescriptions for Tamiflu 75 mg and Tessalon 100 mg. Supportive care was discussed and the patient verbalizes excellent understanding of same. CLINICAL IMPRESSION: Influenza ASSESSMENT/PLAN: 1. Influenza - ICD9: 487.1, ICD10: J11.1 - BENZONATATE 100 MG CAPSULE - OSELTAMIVIR 75 MG CAPSULE Carl Finn PA-C Allergies As of Date: 08/19/2024 Noted Allergy Reaction MACROBID (NITROFURANTOIN MONOHYD/*10/11/2014 2 - Rash CIPROFLOXACIN 04/03/2017 2 - Rash LEXAPRO (ESCITALOPRAM OXALATE) 05/10/2015 5 - Intolerance Comments: dilates pupils, muscle spasms, sleeping issues(afraid to go to sleep) Date Reviewed: 08/19/2024 Reviewed by: Libertad Rosales LPN - Fully Assessed Reason for Visit: Cough [28] Cmt: Cough, chills, ALVARADO, sinus and congestion x 1 day Primary Visit Diagnosis:Influenza [J11.1] Order(s):benzonatate (TESSALON PERLE) 100 mg capsuleTake 1 capsule by mouth three times a day as needed for cough for up to 7 days.Disp: 21 capsuleRfl: 0 oseltamivir (TAMIFLU) 75 mg capsuleTake 1 capsule by mouth two times a day for 5 days.Disp: 10 capsuleRfl: 0 Prescriptions as of 08/19/2024 - benzonatate (TESSALON PERLE) 100 mg capsule Take 1 capsule by mouth three times a day as needed for cough for up to 7 days. - oseltamivir (TAMIFLU) 75 mg capsule Take 1 capsule by mouth two times a day for 5 days. - valACYclovir (VALTREX) 1 gram tablet Take 1 tablet by mouth once daily. Start at beginning of outbreak. Problem List As Of Date 08/19/2024 Noted Resolved Supervision of other normal [Z34.80] 04/29/2014 12/12/2016 Hyperemesis gravidarum, antepartum [O21.0] 06/04/2014 12/12/2016 Adjustment reaction [F43.20] 12/12/2016 LOUIE II (cervical intraepithelial neoplasia II) *09/01/2018 Chronic bilateral low back pain without sciatic*11/19/2023 Chronic bilateral thoracic back pain [M54.6, G8*11/19/2023 Prescriptions ordered this encounter Disp Refills Start End BENZONATATE 100 MG CAPSULE 21 c* 0 08/19/2024 08/26/2024 Route: ORAL Sig: Take 1 capsule by mouth three times a day as needed for cough for up to 7 days. OSELTAMIVIR 75 MG CAPSULE 10 c* 0 08/19/2024 08/24/2024 Route: ORAL Sig: Take 1 capsule by mouth two times a day for 5 days. Level of Service: OFFICE/OUTPATIENT ESTABLISHED MOD MDM 30 MIN [92723] Letter Text Encounter Numb (more content not included)... Normal [facility] 12 Lead EKGon 03-12-2024 12 Lead EKG [facility] Cardiovascular Services [address] [place] [address] 12 Lead EKG 03/12/24 1418 MR#: [id number] Acct: [id number] Name: FLORENCIA SENA Rep #: [id number] : 1990 33 From: Saud Howell MD Attending Dr: Status: DEP ER Ordering Dr: Dexter Powell DO Date: 03/12/24 Location: ED Sex: F C Admitted: Test Reason : CP Blood Pressure : / mmHG Vent. Rate : 071 BPM Atrial Rate : 071 BPM P-R Int : 176 ms QRS Dur : 078 ms QT Int : 390 ms P-R-T Axes : 052 082 024 degrees QTc Int : 423 ms Normal sinus rhythm Normal ECG Confirmed by Saud Howell ([id number]), features editor LOR MCKINNEY ([id number]) on 03/16/2024 10:46:26 AM Referred By: Confirmed By:Saud Howell 03/16/24 1046 Date Saud Howell MD CC: Dr. Dexter Powell DO; Dr. Richard Mcclain MD Signed Normal [facility] Basic Metabolic Profile (BMP )on 03-12-2024 BUN/CRE 19.1 RATIO Normal 10-20 [facility] Comment on above: Order Comment: 1 Y Performed By: #### L 100.0100, L501.5425, L500.2500 #### [facility] [address] [place], [address] CA,Total 9.4 mg/dL Normal 8.5-10.1 [facility] Comment on above: Order Comment: 1 Y Performed By: #### L 100.0100, L501.5425, L500.2500 #### [facility] [address] [place], [address] Chloride [Moles/Vol] 108 mmol/L High 98-107 [facility] Comment on above: Order Comment: 1 Y Performed By: #### L 100.0100, L501.5425, L500.2500 #### [facility] [address] [place], [address] CO2 [Moles/Vol] 25.0 mmol/L Normal 21.0-32.0 [facility] Comment on above: Order Comment: 1 Y Performed By: #### L 100.0100, L501.5425, L500.2500 #### [facility] [address] [place], [address] Creatinine [Mass/Vol] 0.73 mg/dL Normal 0.55-1.02 [facility] Comment on above: Order Comment: 1 Y Result Comment: The validity of the calculated GFR GFRAA in patients over 70 years has not been determined. Clinical correlation is essential. Performed By: #### L 100.0100, L501.5425, L500.2500 #### [facility] [address] [place], [address] ECRCL 100.19 ml/min Normal [facility] Comment on above: Order Comment: 1 Y Performed By: #### L 100.0100, L501.5425, L500.2500 #### [facility] [address] [place], [address] EST GFR - AA 119 mL/min Normal >60 [facility] Comment on above: Order Comment: 1 Y Result Comment: Afri can Swiss GFR Calc Performed By: #### L 100.0100, L501.5425, L500.2500 #### [facility] [address] [place], [address] GAP 5 Normal 5-15 [facility] Comment on above: Order Comment: 1 Y Performed By: #### L 100.0100, L501.5425, L500.2500 #### [facility] [address] [place], [address] GFR/1.73 sq M.predicted among non-blacks MDRD (S/P/Bld) [Vol rate/Area] 98 mL/min/{1.73_m2} Normal >60 [facility] Comment on above: Order Comment: 1 Y Result Comment: Non- GFR Calc Performed By: #### L 100.0100, L501.5425, L500.2500 #### [facility] [address] [place], [address] Glucose [Mass/Vol] 90 mg/dL Normal 74-106 [facility] Comment on above: Order Comment: 1 Y Performed By: #### L 100.0100, L501.5425, L500.2500 #### [facility] [address] [place], [address] Potassium [Moles/Vol] 3.8 mmol/L Normal 3.5-5.1 [facility] Comment on above: Order Comment: 1 Y Performed By: #### L 100.0100, L501.5425, L500.2500 #### [facility] [address] [place], [address] Sodium [Moles/Vol] 138 mmol/L Normal 136-145 [facility] Comment on above: Order Comment: 1 Y Performed By: #### L 100.0100, L501.5425, L500.2500 #### [facility] [address] [place], [address] Urea nitrogen [Mass/Vol] 14 mg/dL Normal 7-18 [facility] Comment on above: Order Comment: 1 Y Performed By: #### L 100.0100, L501.5425, L500.2500 #### [facility] [address] [place], [address] CBC W/Diff, Automatedon 02-22 Absolute Lymph 2.60 X10 3/uL Normal 0.83-4.51 [facility] Comment on above: Performed By: #### L 100.0100, L501.5425, L500.2500 #### [facility] [address] [place], [address] Absolute Neut 5.5 X10 3/uL Normal 2.0-7.7 [facility] Comment on above: Performed By: #### L 100.0100, L501.5425, L500.2500 #### [facility] [address] [place], [address] Basophils/100 WBC (Bld) 0.7 % Normal 0-1 [facility] Comment on above: Performed By: #### L 100.0100, L501.5425, L500.2500 #### [facility] [address] [place], [address] Eosinophils/100 WBC (Bld) 3.2 % Normal 0-5 [facility] Comment on above: Performed By: #### L 100.0100, L501.5425, L500.2500 #### [facility] [address] [place], [address] Erythrocyte distribution width (RBC) [Ratio] 12.5 % Normal 11.6-14.6 [facility] Comment on above: Performed By: #### L 100.0100, L501.5425, L500.2500 #### [facility] [address] [place], [address] Hematocrit (Bld) [Volume fraction] 40.6 % Normal 37-47 [facility] Comment on above: Performed By: #### L 100.0100, L501.5425, L500.2500 #### [facility] [address] [place], [address] Hemoglobin (Bld) [Mass/Vol] 13.7 g/dL Normal 12.0-15.0 [facility] Comment on above: Performed By: #### L 100.0100, L501.5425, L500.2500 #### [facility] [address] [place], [address] IG% 0.300 Normal 0.0-0.9 [facility] Comment on above: Result Comment: IG% - Immature Granulocytes (promyelocytes, myelocytes and metamyelocytes) > 1% indicates that a LEFT SHIFT is Present. Performed By: #### L 100.0100, L501.5425, L500.2500 #### [facility] [address] [place], [address] Lymphocytes/100 WBC (Bld) 28.6 % Normal 19-41 [facility] Comment on above: Performed By: #### L 100.0100, L501.5425, L500.2500 #### [facility] [address] [place], [address] MCH (RBC) [Entitic mass] 28.5 pg Normal 27.0-32.0 [facility] Comment on above: Performed By: #### L 100.0100, L501.5425, L500.2500 #### [facility] [address] [place], [address] MCHC (RBC) [Mass/Vol] 33.7 g/dL Normal 32-36 [facility] Comment on above: Performed By: #### L 100.0100, L501.5425, L500.2500 #### [facility] [address] [place], [address] MCV (RBC) [Entitic vol] 84.4 fL Normal 81-99 [facility] Comment on above: Performed By: #### L 100.0100, L501.5425, L500.2500 #### [facility] [address] [place], [address] Monocytes/100 WBC (Bld) 6.6 % Normal 0-10 [facility] Comment on above: Performed By: #### L 100.0100, L501.5425, L500.2500 #### [facility] [address] [place], [address] Neutrophils/100 WBC (Bld) 60.6 % Normal 47-70 [facility] Comment on above: Performed By: #### L 100.0100, L501.5425, L500.2500 #### [facility] [address] [place], [address] Nucleated RBC (Bld) [#/Vol] 0 10*3/uL Normal 0-5 [facility] Comment on above: Performed By: #### L 100.0100, L501.5425, L500.2500 #### [facility] [address] [place], [address] Platelet mean volume (Bld) [Entitic vol] 9.0 fL Normal 6.2-12.0 [facility] Comment on above: Performed By: #### L 100.0100, L501.5425, L500.2500 #### [facility] [address] [place], [address] Platelets (Bld) [#/Vol] 322 10*3/uL Normal 150-450 [facility] Comment on above: Performed By: #### L 100.0100, L501.5425, L500.2500 #### [facility] [address] [place], [address] RBC (Bld) [#/Vol] 4.81 10*6/uL Normal 4.2-5.4 [facility] Comment on above: Performed By: #### L 100.0100, L501.5425, L500.2500 #### [facility] [address] [place], [address] RDW SD 37.9 fl Normal 35.1-43.9 [facility] Comment on above: Performed By: #### L 100.0100, L501.5425, L500.2500 #### [facility] [address] [place], [address] WBC (Bld) [#/Vol] 9.1 10*3/uL Normal 4.4-11.0 [facility] Comment on above: Performed By: #### L 100.0100, L501.5425, L500.2500 #### [facility] [address] [place], [address] Chest 1 View (Portable)on Chest 1 View (Portable) [facility] Imaging Services [address] [place] [address] Chest 1 View (Portable) MR#: [id number] Acct: [id number] Name: FLORENCIA SENA Rep #: [id number] : 1990 F 33 From: Nathaniel jorge MD PCP: Dr. Richard Mcclain MD Status: PRE ER Study: Chest 1 View (Portable) Date of Exam: 03/12/24 Exam# [id number] Ordering Dr: Dexter Powell DO [id number] STUDY: X-RAY CHEST REASON FOR EXAM: Female, 33 years old. Chest pain TECHNIQUE: Single AP portable view of the chest. COMPARISON: Comparison is made with prior study dated January 28, 2019. FINDINGS: EKG electrodes are seen. The lungs are clear and expanded. There is no demonstrated pleural abnormality. Normal size heart. Normal mediastinum and roselia. Normal visualized pulmonary arteries. Normal visualized aortic arch and descending thoracic aorta. Normal visualized thoracic spine. Normal visualized ribs, clavicles, and shoulders. There is no demonstrated abnormality of the visualized soft tissue structures of the upper abdomen. RAD/Chest 1 View (Portable) IMPRESSION: Normal x-ray examination of the chest. Electronically Signed: Nathaniel Hwang MD at 15:36 EDT Reading Location ID and State: [facility] / [place] , Service support , CC: Dr. Dexter Powell DO; Dr. Richard Mcclain MD Cnc Operator Machinist: Signed Normal [facility] Emergency Department Summary on 03-12-2024 Emergency Department Summary [facility] Medical Records Department [address] [place] [id number] Emergency Department Summary 03/12/24 MR#: [id number] Acct: [id number] Name: FLORENCIA SENA Rep #: [id number] : 1990 33 From: Dexter Powell DO PCP: Dr. Richard Mcclain MD Status:DEP ER Location: ED [facility] History of Present Illness Chief Complaint: Chest Pain PFSH PFSH Home Medications ???Medication ???Instructions ???Recorded ???Last Taken ???Type amoxicillin 500 mg tablet 500 mg PO TID #30 tabs 06/09/23 Unknown Rx Allergy/AdvReac Type Severity Reaction Status Date / Time escitalopram oxalate (From Allergy Other Verified 03/12/24 14:08 Lexapro) nitrofurantoin (From Allergy Rash Verified 03/12/24 14:08 Macrobid) nitrofurantoin Allergy Rash Verified 03/12/24 14:08 macrocrystalline (From Macrobid) Family History (Updated 06/09/23 @ 18:19 by Sherry Reyes) Grandmother Breast cancer Surgical History Hx of dilation and curettage Previous section Social History household members: family housing: house current occupational status: employed Smoking Status: Former smoker EXAM Physical Exam Const Vital Signs: 03/12/24 14:06 03/12/24 15:06 03/12/24 15:06 Temperature 98.1 F Temperature Source Oral Pulse Rate 89 82 Respiratory Rate 16 16 Respiratory Effort Normal Blood Pressure 125/76 H 104/70 Blood Pressure Mean 92 81 Pulse Ox 95 95 Oxygen Delivery Method Room Air Room Air 03/12/24 15:15 03/12/24 16:00 03/12/24 17:00 Temperature Temperature Source Pulse Rate 83 80 Respiratory Rate 19 H 16 Respiratory Effort Blood Pressure 106/77 101/64 Blood Pressure Mean 86 76 Pulse Ox 100 99 Oxygen Delivery Method Room Air Room Air Room Air MDM MDM MDM Narrative Medical decision making narrative: HISTORY OF PRESENT ILLNESS: 33-year-old female with no significant past medical history presents with chest pain. Notes chest pain for 1 and half weeks. Notes worsening she moves her arms around. She further states she is having chest pain constantly for 1 and half weeks. Denies syncope. Chest pain is sharp. As well as when she moves her upper extremities. Is not worse with exertion. It is not pleuritic. She has no family history of early cardiac . Denies any bleeding diathesis or volume loss. Patient denies sudden onset of pain, no tearing sensation, no migratory symptoms, no new numbness, weakness or loss of sensation. Patient denies family history or personal history of Marfan syndrome or Lola-Danlos. The patient denies recent surgery in the last 4 weeks or immobilization in the last 3 days, denies previous diagnosis of DVT or PE, hemoptysis, unilateral leg swelling or malignancy with treatment the last 6 months. No estrogen use noted. REVIEW OF SYSTEMS: All other systems reviewed and are negative except as noted in the history of present illness. At least 10 review of systems reviewed and are negative except as noted in history of present illness. PHYSICAL EXAM: Nursing triage notes reviewed, Vital signs reviewed Constitutional: please see mdm HENT: MMM Eyes: Pupils equal round and reactive to light, Extraocular muscles intact Neck: No stridor, no JVD, full neck ROM Lungs: Clear to auscultation, No wheezing or rales. No increased work of breathing, no conversational dyspnea, no accessory muscle use, no nasal flaring. No respiratory distress noted Heart: Regular rate and rhythm, No murmurs, No rubs and No gallops, 2+ distal pulses (radial, femoral, posterior tibial) in all extremities Abdomen: Soft, there is no tenderness, rigidity, rebound or guarding, no obvious peritoneal signs, no palpable pulsatile abdominal masses, no auscultated abdominal bruit : No CVAT Extremities: No edema Neuro: No focal neurological deficits, cranial nerves II through XII intact, 5/5 strength in all extremities. Intact sensation to light touch in all extremities, 2+ reflexes bilateral patella tendons. Normal gait. No ataxia. Skin: No rash or lesions noted MEDICAL DECISION MAKING: Chief Complaint: Chest pain External records reviewed: Prior imaging, medications and prior outpatient notes reviewed Factors affecting care none report Social determinants of health:[None History obtained from others: Consults: none [facility] Narrative: The patient was initially hemodynamically stable, afebrile and nontoxic-appearing. No focal cardiopulmonary abnormalities I considered the following differential diagnosis: ACS, arrhythmia, anemia, electrolyte abnormality, pneumonia, pneumothorax, GI etiology, PE Considered the following thought they are less likely secondary (more content not included)... Normal [facility] L501.4020on 03-12-2024 TROPONIN-I HS 4 pg/mL Normal 3.0-54.0 [facility] Comment on above: Result Comment: Plea se Note: New Test Units and Gender Specific Reference Ranges. For more information see Policy Stat Procedure [place] High Sensitivity Troponin (TNIH) and attachments. Performed By: #### L 501.4020 #### [facility] [address] [place], [address] L501.5425on 03-12-2024 TROPONIN-I HS < 3 Low 3.0-54.0 [facility] Comment on above: Order Comment: 1 Y Result Comment: Plea se Note: New Test Units and Gender Specific Reference Ranges. For more information see Policy Stat Procedure [facility] High Sensitivity Troponin (TNIH) and attachments. Performed By: #### L 100.0100, L501.5425, L500.2500 #### [facility] [address] [place], [address] DBT Breast - bilateral diagn ostic for implanton 01-09-2024 * * *Final Report* * * DATE OF EXAM: Jan 09 2024 12:58PM ANY 0627 - [facility] ALISTAIR ROY / PROCEDURE REASON: Abnormal ultrasound of breast * * * * Physician Interpretation * * * * #[id number] - DAVID ALISTAIR ROY #[id number] - [facility] US BREAST LTD RT BILATERAL DIGITAL DIAGNOSTIC MAMMOGRAM TOMOSYNTHESIS WITH CAD SHORT-TERM FOLLOW-UP: 01/09/2024 HISTORY: Abnormal Ultrasound Of Breast Shortened interval follow up mammogram. Followup abnormal ultrasound. RESULT: TECHNIQUE: The study was acquired using full field digital technology and interpreted from soft copy. Digital Breast Tomosynthesis (DBT) images were obtained and used to assist in the interpretation of this examination. Current study was also evaluated with a Computer Aided Detection (CAD). Comparison is made to exams dated: 07/31/2022 ultrasound, 11/28/2021 ultrasound, 03/05/2023 mammogram, and 03/05/2023 ultrasound - [facility]. The breasts are heterogeneously dense, which may obscure small masses. There is a stable oval mass in the right breast lower inner aspect middle depth. Finding is best noted on tomographic CC slice 16 and MLO slice 62. No other significant masses, calcifications, or other findings are seen in either breast. [facility] Provider, [facility] - 01/09/2024 * * *Final Report* * * DATE OF EXAM: Jan 09 2024 12:58PM AAW 0627 - DAVID DIAG W ANGEL MANUELA / PROCEDURE REASON: Abnormal ultrasound of breast * * * * Physician Interpretation * * * * #[id number] - DAVID DIAG W ANGEL MANUELA #[id number] - [facility] US BREAST LTD RT BILATERAL DIGITAL DIAGNOSTIC MAMMOGRAM TOMOSYNTHESIS WITH CAD SHORT-TERM FOLLOW-UP: 01/09/2024 HISTORY: Abnormal Ultrasound Of Breast Shortened interval follow up mammogram. Followup abnormal ultrasound. RESULT: TECHNIQUE: The study was acquired using full field digital technology and interpreted from soft copy. Digital Breast Tomosynthesis (DBT) images were obtained and used to assist in the interpretation of this examination. Current study was also evaluated with a Computer Aided Detection (CAD). Comparison is made to exams dated: 07/31/2022 ultrasound, 11/28/2021 ultrasound, 03/05/2023 mammogram, and 03/05/2023 ultrasound - [facility]. The breasts are heterogeneously dense, which may obscure small masses. There is a stable oval mass in the right breast lower inner aspect middle depth. Finding is best noted on tomographic CC slice 16 and MLO slice 62. No other significant masses, calcifications, or other findings are seen in either breast. IMPRESSION IMPRESSION: INCOMPLETE: NEED ADDITIONAL IMAGING EVALUATION The stable oval mass in the right breast is indeterminate. An ultrasound is recommended. LIMITED ULTRASOUND OF RIGHT BREAST: 01/09/2024 RESULT: Comparison is made to exams dated: 07/31/2022 ultrasound, 11/28/2021 ultrasound, 03/05/2023 mammogram, and 03/05/2023 ultrasound - [facility]. Color flow and real-time ultrasound of the right breast 4 o'clock region were performed. Jensen scale images of the real-time examination were reviewed. There is a stable benign 1 cm x 0.5 cm x 1 cm oval mass with a circumscribed margin in the right breast at 4 o'clock middle depth 5 cm from the nipple. This oval mass is hypoechoic and septated. This correlates with mammography findings. Color flow imaging demonstrates that there is no vascularity present. IMPRESSION: BENIGN There is no sonographic evidence of malignancy. 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 Mammographically, this mass is stable since February 2023. Sonographically, the mass is stable since November 2021. Given two years of stability, the mass may be considered benign. This was discussed with the patient at the time of exam, who was agreeable with this plan. It was also discussed, however, given family history of breast cancer, additional screening modalities such as breast MRI may be warranted; evaluation in high risk breast clinic was suggested, as such. Return to annual mammogram screening schedule is recommended. SUMMARY: Results and recommendations were discussed with the patient at time of examination. Estefanía guaman/bronwyn:01/09/2024 16:35:56 Multiple national specialty organizations have released breast cancer screening guidelines for women at average risk for developing breast cancer - guidelines that are based on both evidence and opinion, yet differ on when to start and how often to screen for breast cancer. With representation from Breast Imaging, Internal Medicine, Women's Health, Family Medicine, and Medical/Surgical Oncology, the [facility] has carefully reviewed the data and reached the following consensus: 1) All women should engage in shared decision-making with their providers to decide when to start and how often to screen; 2) All women should have the opportunity to start screening mammography at age 40; 3) For women ages 45-55, we recommend annual screening mammograms; 4) For women ages 55 and over, we support both the transition from an annual to a biennial interval if this aligns more with patient's values and preferences, or continuation with annual screening; 5) All women should discuss with their providers when to stop screening mammograms. Optical Instrument Assembler(s): Alfa Zuleta R.D.M.S., [employer]; CHAYA Howell)(M), [employer] OVERALL STUDY BIRADS: BENIGN Cnc Operator Machinist: Bronwyn Transcribe Date/Time: Jan 09 2024 12:36P Dictated by : ESTEFANÍA PEACOCK MD This examination was interpreted and the report reviewed and electronically signed by: ESTEFANÍA PEACOCK MD on Jan 09 2024 4:35PM [facility] Radiology Study observation (narrative) [facility] DAVID ROYon 2023 DAVID Acuña ANGEL MANUELA * * *Final Report* * * DATE OF EXAM: Jan 09 2024 12:58PM AAW 0627 - DAVID PHILLIPSG W ANGEL MANUELA / PROCEDURE REASON: Abnormal ultrasound of breast * * * * Physician Interpretation * * * * #[id number] - DAVID SAINZ W ANGEL MANUELA #[id number] - DAVID US BREAST LTD RT BILATERAL DIGITAL DIAGNOSTIC MAMMOGRAM TOMOSYNTHESIS WITH CAD SHORT-TERM FOLLOW-UP: 01/09/2024 HISTORY: Abnormal Ultrasound Of Breast Shortened interval follow up mammogram. Followup abnormal ultrasound. RESULT: TECHNIQUE: The study was acquired using full field digital technology and interpreted from soft copy. Digital Breast Tomosynthesis (DBT) images were obtained and used to assist in the interpretation of this examination. Current study was also evaluated with a Computer Aided Detection (CAD). Comparison is made to exams dated: 07/31/2022 ultrasound, 11/28/2021 ultrasound, 03/05/2023 mammogram, and 03/05/2023 ultrasound - [facility]. The breasts are heterogeneously dense, which may obscure small masses. There is a stable oval mass in the right breast lower inner aspect middle depth. Finding is best noted on tomographic CC slice 16 and MLO slice 62. No other significant masses, calcifications, or other findings are seen in either breast. IMPRESSION: INCOMPLETE: NEED ADDITIONAL IMAGING EVALUATION The stable oval mass in the right breast is indeterminate. An ultrasound is recommended. LIMITED ULTRASOUND OF RIGHT BREAST: 01/09/2024 RESULT: Comparison is made to exams dated: 07/31/2022 ultrasound, 11/28/2021 ultrasound, 03/05/2023 mammogram, and 03/05/2023 ultrasound - [facility]. Color flow and real-time ultrasound of the right breast 4 o'clock region were performed. Jensen scale images of the real-time examination were reviewed. There is a stable benign 1 cm x 0.5 cm x 1 cm oval mass with a circumscribed margin in the right breast at 4 o'clock middle depth 5 cm from the nipple. This oval mass is hypoechoic and septated. This correlates with mammography findings. Color flow imaging demonstrates that there is no vascularity present. IMPRESSION: BENIGN There is no sonographic evidence of malignancy. 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 Mammographically, this mass is stable since February 2023. Sonographically, the mass is stable since November 2021. Given two years of stability, the mass may be considered benign. This was discussed with the patient at the time of exam, who was agreeable with this plan. It was also discussed, however, given family history of breast cancer, additional screening modalities such as breast MRI may be warranted; evaluation in high risk breast clinic was suggested, as such. Return to annual mammogram screening schedule is recommended. SUMMARY: Results and recommendations were discussed with the patient at time of examination. Estefanía guaman/bronwyn:01/09/2024 16:35:56 Multiple national specialty organizations have released breast cancer screening guidelines for women at average risk for developing breast cancer - guidelines that are based on both evidence and opinion, yet differ on when to start and how often to screen for breast cancer. With representation from Breast Imaging, Internal Medicine, Women's Health, Family Medicine, and Medical/Surgical Oncology, the [facility] has carefully reviewed the data and reached the following consensus: 1) All women should engage in shared decision-making with their providers to decide when to start and how often to screen; 2) All women should have the opportunity to start screening mammography at age 40; 3) For women ages 45-55, we recommend annual screening mammograms; 4) For women ages 55 and over, we support both the transition from an annual to a biennial interval if this aligns more with patient's values and preferences, or continuation with annual screening; 5) All women should discuss with their providers when to stop screening mammograms. Optical Instrument Assembler(s): Alfa Zuleta R.D.M.S., [employer]; RT Lynda(Beni)(M), [employer] OVERALL STUDY BIRADS: BENIGN Cnc Operator Machinist: Bronwyn Transcribe Date/Time: Jan 09 2024 12:36P Dictated by : ESTEFANÍA PEACOCK MD This examination was interpreted and the report reviewed and electronically signed by: ESTEFANÍA PEACOCK MD on Jan 09 2024 4:35PM EST [id number] N Normal [facility] US BREAST LTD RTon 01-08 [facility] US BREAST LTD RT * * *Final Report* * * DATE OF EXAM: Jan 09 2024 1:42PM AAW 0594 - [facility] US BREAST LTD RT / PROCEDURE REASON: Abnormal ultrasound of breast * * * * Physician Interpretation * * * * #[id number] - [facility] DIAG W ANGEL MANUELA #[id number] - [facility] US BREAST LTD RT BILATERAL DIGITAL DIAGNOSTIC MAMMOGRAM TOMOSYNTHESIS WITH CAD SHORT-TERM FOLLOW-UP: 01/09/2024 HISTORY: Abnormal Ultrasound Of Breast Shortened interval follow up mammogram. Followup abnormal ultrasound. RESULT: TECHNIQUE: The study was acquired using full field digital technology and interpreted from soft copy. Digital Breast Tomosynthesis (DBT) images were obtained and used to assist in the interpretation of this examination. Current study was also evaluated with a Computer Aided Detection (CAD). Comparison is made to exams dated: 07/31/2022 ultrasound, 11/28/2021 ultrasound, 03/05/2023 mammogram, and 03/05/2023 [facility] - [facility]. The breasts are heterogeneously dense, which may obscure small masses. There is a stable oval mass in the right breast lower inner aspect middle depth. Finding is best noted on tomographic CC slice 16 and MLO slice 62. No other significant masses, calcifications, or other findings are seen in either breast. IMPRESSION: INCOMPLETE: NEED ADDITIONAL IMAGING EVALUATION The stable oval mass in the right breast is indeterminate. An ultrasound is recommended. LIMITED ULTRASOUND OF RIGHT BREAST: 01/09/2024 RESULT: Comparison is made to exams dated: 07/31/2022 ultrasound, 11/28/2021 ultrasound, 03/05/2023 mammogram, and 03/05/2023 ultrasound [facility]. Color flow and real-time ultrasound of the right breast 4 o'clock region were performed. Jensen scale images of the real-time examination were reviewed. There is a stable benign 1 cm x 0.5 cm x 1 cm oval mass with a circumscribed margin in the right breast at 4 o'clock middle depth 5 cm from the nipple. This oval mass is hypoechoic and septated. This correlates with mammography findings. Color flow imaging demonstrates that there is no vascularity present. IMPRESSION: BENIGN There is no sonographic evidence of malignancy. 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 Mammographically, this mass is stable since February 2023. Sonographically, the mass is stable since November 2021. Given two years of stability, the mass may be considered benign. This was discussed with the patient at the time of exam, who was agreeable with this plan. It was also discussed, however, given family history of breast cancer, additional screening modalities such as breast MRI may be warranted; evaluation in high risk breast clinic was suggested, as such. Return to annual mammogram screening schedule is recommended. SUMMARY: Results and recommendations were discussed with the patient at time of examination. Estefanía guaman/bronwyn:01/09/2024 16:35:56 Multiple national specialty organizations have released breast cancer screening guidelines for women at average risk for developing breast cancer - guidelines that are based on both evidence and opinion, yet differ on when to start and how often to screen for breast cancer. With representation from Breast Imaging, Internal Medicine, Women's Health, Family Medicine, and Medical/Surgical Oncology, the [facility] has carefully reviewed the data and reached the following consensus: 1) All women should engage in shared decision-making with their providers to decide when to start and how often to screen; 2) All women should have the opportunity to start screening mammography at age 40; 3) For women ages 45-55, we recommend annual screening mammograms; 4) For women ages 55 and over, we support both the transition from an annual to a biennial interval if this aligns more with patient's values and preferences, or continuation with annual screening; 5) All women should discuss with their providers when to stop screening mammograms. Optical Instrument Assembler(s): Alfa Zuleta R.D.M.S., [employer]; RT Lynda(Beni)(M), [employer] OVERALL STUDY BIRADS: BENIGN Cnc Operator Machinist: Bronwyn Transcribe Date/Time: Jan 09 2024 12:36P Dictated by : ESTEFANÍA PEACOCK MD This examination was interpreted and the report reviewed and electronically signed by: ESTEFANÍA PEACOCK MD on Jan 09 2024 4:35PM EST [id number] N Normal [facility] No Panel InformationOrdered By: [facility] Provider on 01-09-2024 [facility] US Breast - right limitedon 01-09-2024 * * *Final Report* * * DATE OF EXAM: Jan 09 2024 1:42PM AA 0594 - [facility] US BREAST LTD RT / PROCEDURE REASON: Abnormal ultrasound of breast * * * * Physician Interpretation * * * * #[id number] - DAVID DIAG W ANGEL MANUELA #[id number] - [facility] US BREAST LTD RT BILATERAL DIGITAL DIAGNOSTIC MAMMOGRAM TOMOSYNTHESIS WITH CAD SHORT-TERM FOLLOW-UP: 01/09/2024 HISTORY: Abnormal Ultrasound Of Breast Shortened interval follow up mammogram. Followup abnormal ultrasound. RESULT: TECHNIQUE: The study was acquired using full field digital technology and interpreted from soft copy. Digital Breast Tomosynthesis (DBT) images were obtained and used to assist in the interpretation of this examination. Current study was also evaluated with a Computer Aided Detection (CAD). Comparison is made to exams dated: 07/31/2022 ultrasound, 11/28/2021 ultrasound, 03/05/2023 mammogram, and 03/05/2023 ultrasound - [facility]. The breasts are heterogeneously dense, which may obscure small masses. There is a stable oval mass in the right breast lower inner aspect middle depth. Finding is best noted on tomographic CC slice 16 and MLO slice 62. No other significant masses, calcifications, or other findings are seen in either breast. [facility] Provider, [facility] [place] - 01/09/2024 * * *Final Report* * * DATE OF EXAM: Jan 09 2024 1:42PM [facility] 0594 - [facility] US BREAST LTD RT / PROCEDURE REASON: Abnormal ultrasound of breast * * * * Physician Interpretation * * * * #[id number] - DAVID DIAG W ANGEL MANUELA #[id number] - DAVID US BREAST LTD RT BILATERAL DIGITAL DIAGNOSTIC MAMMOGRAM TOMOSYNTHESIS WITH CAD SHORT-TERM FOLLOW-UP: 01/09/2024 HISTORY: Abnormal Ultrasound Of Breast Shortened interval follow up mammogram. Followup abnormal ultrasound. RESULT: TECHNIQUE: The study was acquired using full field digital technology and interpreted from soft copy. Digital Breast Tomosynthesis (DBT) images were obtained and used to assist in the interpretation of this examination. Current study was also evaluated with a Computer Aided Detection (CAD). Comparison is made to exams dated: 07/31/2022 ultrasound, 11/28/2021 ultrasound, 03/05/2023 mammogram, and 03/05/2023 ultrasound - [facility]. The breasts are heterogeneously dense, which may obscure small masses. There is a stable oval mass in the right breast lower inner aspect middle depth. Finding is best noted on tomographic CC slice 16 and MLO slice 62. No other significant masses, calcifications, or other findings are seen in either breast. IMPRESSION IMPRESSION: INCOMPLETE: NEED ADDITIONAL IMAGING EVALUATION The stable oval mass in the right breast is indeterminate. An ultrasound is recommended. LIMITED ULTRASOUND OF RIGHT BREAST: 01/09/2024 RESULT: Comparison is made to exams dated: 07/31/2022 ultrasound, 11/28/2021 ultrasound, 03/05/2023 mammogram, and 03/05/2023 [facility]. Color flow and real-time ultrasound of the right breast 4 o'clock region were performed. Jensen scale images of the real-time examination were reviewed. There is a stable benign 1 cm x 0.5 cm x 1 cm oval mass with a circumscribed margin in the right breast at 4 o'clock middle depth 5 cm from the nipple. This oval mass is hypoechoic and septated. This correlates with mammography findings. Color flow imaging demonstrates that there is no vascularity present. IMPRESSION: BENIGN There is no sonographic evidence of malignancy. 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 Mammographically, this mass is stable since February 2023. Sonographically, the mass is stable since November 2021. Given two years of stability, the mass may be considered benign. This was discussed with the patient at the time of exam, who was agreeable with this plan. It was also discussed, however, given family history of breast cancer, additional screening modalities such as breast MRI may be warranted; evaluation in high risk breast clinic was suggested, as such. Return to annual mammogram screening schedule is recommended. SUMMARY: Results and recommendations were discussed with the patient at time of examination. Estefanía guaman/bronwyn:01/09/2024 16:35:56 Multiple national specialty organizations have released breast cancer screening guidelines for women at average risk for developing breast cancer - guidelines that are based on both evidence and opinion, yet differ on when to start and how often to screen for breast cancer. With representation from Breast Imaging, Internal Medicine, Women's Health, Family Medicine, and Medical/Surgical Oncology, the [facility] has carefully reviewed the data and reached the following consensus: 1) All women should engage in shared decision-making with their providers to decide when to start and how often to screen; 2) All women should have the opportunity to start screening mammography at age 40; 3) For women ages 45-55, we recommend annual screening mammograms; 4) For women ages 55 and over, we support both the transition from an annual to a biennial interval if this aligns more with patient's values and preferences, or continuation with annual screening; 5) All women should discuss with their providers when to stop screening mammograms. Optical Instrument Assembler(s): Alfa Zuleta R.D.M.S., [employer]; RT Lynda(Beni)(M), [facility] OVERALL STUDY BIRADS: BENIGN Cnc Operator Machinist: Bronwyn Transcribe Date/Time: Jan 09 2024 12:36P Dictated by : ESTEFANÍA PEACOCK MD This examination was interpreted and the report reviewed and electronically signed by: ESTEFANÍA PEACOCK MD on Jan 09 2024 4:35PM [facility] Radiology Study observation (narrative) [facility] CBC W Auto Differential pane l (Bld)on 12-24-2023 Basophils (Bld) [#/Vol] 0.06 10*3/uL [facility] Basophils/100 WBC (Bld) 0.7 % C [facility] Differential cell count method Nom (Bld) Auto [facility] Eosinophils (Bld) [#/Vol] 0.25 10*3/uL [facility] Eosinophils/100 WBC (Bld) 3.0 % [facility] Erythrocyte distribution width (RBC) [Ratio] 12.5 % 11.5 - 15.0 % [facility] Hematocrit (Bld) [Volume fraction] 41.4 % 36.0 - 46.0 % [facility] Hemoglobin (Bld) [Mass/Vol] 14.1 g/dL 11.5 - 15.5 g/dL [facility] Immature granulocytes (Bld) [#/Vol] [facility] Immature granulocytes/100 WBC (Bld) 0.2 % [facility] Lymphocytes (Bld) [#/Vol] 2.53 10*3/uL [facility] Lymphocytes/100 WBC (Bld) 29.9 % [facility] MCH (RBC) [Entitic mass] 28.7 pg 26.0 - 34.0 pg [facility] MCHC (RBC) [Mass/Vol] 34.1 g/dL 30.5 - 36.0 g/dL [facility] MCV (RBC) [Entitic vol] 84.3 fL 80.0 - 100.0 fL [facility] Monocytes (Bld) [#/Vol] 0.48 10*3/uL [facility] Monocytes/100 WBC (Bld) 5.7 % [facility] Neutrophils (Bld) [#/Vol] 5.11 10*3/uL [facility] Neutrophils/100 WBC (Bld) 60.5 % [facility] Nucleated RBC (Bld) [#/Vol] [facility] Nucleated RBC/100 WBC (Bld) [Ratio] 0.0 % /100 WBC [facility] Platelet mean volume (Bld) [Entitic vol] 9.6 fL 9.0 - 12.7 fL [facility] Platelets (Bld) [#/Vol] 291 10*3/uL [facility] Comment on above: No clot detected. RBC (Bld) [#/Vol] 4.91 10*6/uL 3.90 - 5.2 0 m/uL [facility] WBC (Bld) [#/Vol] 8.45 10*3/uL [facility] Matthias 07-16-2023 JARETH Telephone (AGGBRCR) NATHENFLORENCIA ([id number]) 1990 F Date Time Provider Department 07/16/23 KELLY GROVES During your visit today, we recorded the following information about you: Hansa Escalante 07/18/2023 8:59 AM Signed Left message to schedule recommended breast biopsy. Final certified letter sent per radiology 07/08/2023. Hansa Escalante Allergies As of Date: 07/16/2023 Noted Allergy Reaction MACROBID (NITROFURANTOIN MONOHYD/*10/11/2014 2 - Rash CIPROFLOXACIN 04/03/2017 2 - Rash LEXAPRO (ESCITALOPRAM OXALATE) 05/10/2015 5 - Intolerance Comments: dilates pupils, muscle spasms, sleeping issues(afraid to go to sleep) Date Reviewed: 06/09/2023 Reviewed by: Hero Riggins APRN.ASSEMBLER TUBING - Fully Assessed Reason for Visit: Appointment [[id number]] Prescriptions as of 07/18/2023 - valACYclovir (VALTREX) 1 gram Take 1 tablet by mouth once daily. Start at beginning of outbreak. - Brompheniramine-Pseud oeph-DM (BROMFED DM) 2-30-10 mg/5 mL syrup Take 10 mL by mouth four times daily as needed. - fluticasone (FLONASE) 50 mcg/actuation nasal spray Use 2 Sprays in each nostril once daily. Rinse mouth after use. - hydrOXYzine pamoate (VISTARIL) 25 mg capsule Take 1 capsule by mouth three times daily as needed. - fluticasone (FLONASE) 50 mcg/actuation nasal spray Use 2 Sprays in each nostril once daily. Rinse mouth after use. - hydrocortisone (PROCTOZONE-HC) 2.5 % rectal cream Apply to irritated skin twice daily as needed - triamcinolone acetonide (KENALOG) 0.5 % cream apply to affected area three times a day for 7 days - Hydrocortisone-Pramox ine 2.5-1 % (4g) crea by RECTAL route twice daily as needed. - gabapentin (NEURONTIN) 100 mg capsule Take 1 capsule by mouth three times daily for 30 days. - busPIRone (BUSPAR) 5 mg tablet Take 1 tablet by mouth twice daily. - levonorgestrel (MIRENA) 20 mcg/24 hr (5 years) IUD Inserted in office Problem List As Of Date 07/16/2023 Noted Resolved Supervision of other normal [Z34.80] 04/29/2014 12/12/2016 Hyperemesis gravidarum, antepartum [O21.0] 06/04/2014 12/12/2016 Adjustment reaction [F43.20] 12/12/2016 LOUIE II (cervical intraepithelial neoplasia II) *09/01/2018 Encounter Status:Closed by HANSA ESCALANTE on 07/18/23 Normal [facility] Emergency Department Summary on 06-09-2023 Emergency Department Summary [facility] Medical Records Department [address] [place] [address] Emergency Department Summary 06/09/23 MR#: [id number] Acct: [id number] Name: FLORENCIA SENA Rep #: [id number] : 1990 32 From: Jaron Castaneda DO PCP: Dr. Richard Mcclain MD Status:DEP ER Location: ED HPI History of Present Illness Chief Complaint: General Illness Informant: patient Onset/Context/Timing Onset: Days (4) Context: Gradual Onset Timing: Continuous Quality: Aching Location: Right ear Worsened by: Nothing Relieved by: Nothing Narrative Narrative: Patient presents with ear pain, sore throat, cough, and chills that has been constant for the past 4 days. Patient states it came on gradually. Patient states she was seen at urgent care 4 days ago. Patient states she had a rapid strep done at that time which was negative. Patient states that since that time she has been having some nausea and diarrhea. Patient denies any vomiting. Patient admits to a cough but denies any sputum production. Patient admits to some subjective chills but did not take her temperature. Patient admits to some pain and pressure in her right ear. Patient admits to some decreased hearing from her right ear. PFSH PFSH Medical History no medical history no medical history Home Medications amoxicillin 500 mg tablet 500 mg PO TID #30 tabs 06/09/23 [Rx Last Taken Unknown] Allergy/AdvReac Type Severity Reaction Status Date / Time escitalopram oxalate Allergy Other Verified 06/09/23 16:07 [From Lexapro] nitrofurantoin Allergy Rash Verified 06/09/23 16:07 [From Macrobid] nitrofurantoin Allergy Rash Verified 06/09/23 16:07 macrocrystalline [From Macrobid] Family History (Updated 06/09/23 @ 18:19 by Sherry Reyes) Grandmother Breast cancer Surgical History (Updated 06/09/23 @ 18:[address] Jaron Castaneda, ) Hx of dilation and curettage Previous section Social History household members: family housing: house current occupational status: employed Smoking Status: Former smoker ROS ROS ED Constitutional Constitutional ED: Reports chills and subjective; Denies fever(s) Eyes Eyes: Denies blurry vision or change in vision ENT ENT ED: Reports ear pain right and sore throat; Denies rhinorrhea Cardiovascular Cardiovascular: Denies chest pain or palpitations Respiratory/Chest Respiratory/Chest: Reports cough; Denies dyspnea Gastrointestinal Gastrointestinal: Reports diarrhea and nausea; Denies vomiting Genitourinary Genitourinary ED: Denies dysuria or hematuria Musculoskeletal Musculoskeletal: Denies back pain or neck pain Integumentary Denies abscess or rash Neurologic Neurologic: Denies headache(s) or weakness Allergic/Immunologic Allergic/Immunologic ED: Denies mouth swelling or urticaria EXAM Physical Exam Const Vital Signs: 06/09/23 16:07 06/09/23 18:19 Temperature 97.6 F L Temperature Source Temporal Pulse Rate 93 Respiratory Rate 17 Respiratory Effort Normal Respiratory Pattern Normal Blood Pressure 119/82 H Blood Pressure Mean 94 Pulse Ox 98 Oxygen Delivery Method Room Air Positive well nourished and well developed General Appearance ED: well developed and NAD HEENT Reports moist mucous membranes HEENT Narrative: The right tympanic membrane was erythematous and dull. Left tympanic membrane was clear. Oral mucosa is pink and moist. Oropharynx is clear. Airway is patent. Eyes PERRL and EOMs intact bilaterally Neck supple and no JVD Resp normal respiratory effort and clear to auscultation bilaterally Cardio regular rate and regular rhythm Neuro oriented x3, CN's II-XII intact bilaterally and no sensory deficits noted Sensorium / Orientation: alert Motor Exam: strength 5/5 throughout Psych mental status grossly normal MDM MDM MDM Narrative Medical decision making narrative: Differential diagnosis includes viral upper respiratory infection, COVID-19 infection, influenza infection, and right otitis media. COVID-19 rapid antigen will be obtained to assess for COVID-19 infection. Influenza A and influenza B antigens will be obtained to assess for influenza infection. Lab Data Lab results narrative: COVID-19 rapid antigen was reviewed and was negative. Influenza A and influenza B antigens were reviewed and were negative. Treatment and Re-Evaluation :: Patient was advised of her findings. Patient was given a dose of amoxicillin here. Patient was given a prescription for amoxicillin for her right otitis media. Patient was instructed to take Tylenol or ibuprofen as needed for pain. Patient was instructed to follow-up with her primary care physician in 5 to 7 days. Patient was instructed return if worse in any way. P (more content not included)... Normal [facility] Influenza virus A and B and SARS-CoV-2 (COVID-19) Ag panel - Upper respiratory specimOrdered By: Jaron Castaneda on 06-09-2023 SARS-CoV-2 (COVID-19) RNA AUGUSTA+probe Ql (Resp) [facility] M101.0111on 06-09-2023 M101.0111 *Negative results from patients with symptom onset beyond five days should be treated as presumptive and confirmed by a molecular assay if clinically necessary. Negative results should not be used as the sole basis for treatment or for patient management. FLUABV+SARS-CoV2 Ag Pnl Up resp IA.rapid Negative Influenza results should be confirmed with FLU PANEL MOLECULAR if indicated. FLUABV+SARS-CoV2 Ag Pnl Up resp IA.rapid * This test has not been FDA cleared or approved; the test has been authorized by FDA under an Emergency Use Authorization (EAU) for use by laboratories certified under CLIA that meet the requirements to perform moderate, high, or waived complexity tests. FLUABV+SARS-CoV2 Ag Pnl Up resp IA.rapid Normal Reference Range: Negative Lucina, JANETTE method SARS-CoV-2 (COVID 19) Negative Influenza Ag, Direct NEGATIVE for Influenza A/B Antigen (See Note) Normal [facility] Comment on above: Performed By: #### M 101.0111 #### [facility] Laboratory [facility] [place], [address] STREP A MOLECULAR (POC)on Procedural Control Valid [facility] Strep A (POCT) Negative Negative [facility] DAVID ORTIZ BILATERALon 03-05-2023 [facility] STREP A MOLECULAR (POC)on Procedural Control Valid [facility] Strep A (POCT) Negative Negative [facility] STREP A MOLECULAR (POC)on Procedural Control Valid [facility] Strep A (POCT) Negative Negative [facility] US BREAST LTD RTon [facility] Vital Signs Date Time Vital Sign Value Performing Clinician Facility 02-16-2025 15:57-0400 Body mass index (BMI) [Ratio] 32.46 kg/m2 Elisa Geller MARKETING TECHNOLOGIST.ASSEMBLER TUBING Work Phone: [facility] 02-16-2025 15:57-0400 Body temperature 98.2 [degF] Elisa Russell-Chandu MARKETING TECHNOLOGIST.ASSEMBLER TUBING Work Phone: [facility] 02-16-2025 15:57-0400 Body weight 72.9 kg Elisa Geller MARKETING TECHNOLOGIST.ASSEMBLER TUBING Work Phone: [facility] 02-16-2025 15:57-0400 Diastolic blood pressure 80 mm[Hg] Elisa Pinedaler-Chandu MARKETING TECHNOLOGIST.ASSEMBLER TUBING Work Phone: [facility] 02-16-2025 15:57-0400 Heart rate 94 /min Elisa Russell-Chandu MARKETING TECHNOLOGIST.ASSEMBLER TUBING Work Phone: [facility] 02-16-2025 15:57-0400 Respiratory rate 16 /min Elisa Geller MARKETING TECHNOLOGIST.ASSEMBLER TUBING Work Phone: [facility] 02-16-2025 15:57-0400 SaO2% (BldA) [Mass fraction] 98 % Elisa Geller MARKETING TECHNOLOGIST.ASSEMBLER TUBING Work Phone: [facility] 02-16-2025 15:57-0400 Systolic blood pressure 122 mm[Hg] Elisa Pinedaler-Chandu MARKETING TECHNOLOGIST.ASSEMBLER TUBING Work Phone: [facility] 10-08-2024 15:12-0400 Body height 149.9 cm Beto Vargas MD Work Phone: [facility] 10-08-2024 15:12-0400 Body mass index (BMI) [Ratio] 33.08 kg/m2 Beto Vargas MD Work Phone: [facility] 10-08-2024 15:12-0400 Body weight 74.3 kg Beto Vargas MD Work Phone: [facility] 10-08-2024 15:12-0400 Diastolic blood pressure 80 mm[Hg] Beto Vargas MD Work Phone: [facility] 10-08-2024 15:12-0400 Systolic blood pressure 120 mm[Hg] Beto Vargas MD Work Phone: [facility] 08-25-2024 09:17-0500 Body mass index (BMI) [Ratio] 32.76 kg/m2 Rina Bogner PA-C Work Phone: [facility] 08-25-2024 09:17-0500 Body temperature 97.3 [degF] Rina Bogner PA-C Work Phone: [facility] 08-25-2024 09:17-0500 Body weight 73.57 kg Rina Bogner PA-C Work Phone: [facility] 08-25-2024 09:17-0500 Diastolic blood pressure 80 mm[Hg] Rina Bogner PA-C Work Phone: [facility] 08-25-2024 09:17-0500 Heart rate 88 /min Rina Bogner PA-C Work Phone: [facility] 08-25-2024 09:17-0500 Respiratory rate 16 /min Rina Bogner PA-C Work Phone: [facility] 08-25-2024 09:17-0500 SaO2% (BldA) [Mass fraction] 98 % Rina Bogner PA-C Work Phone: [facility] 08-25-2024 09:17-0500 Systolic blood pressure 120 mm[Hg] Rina Simmonsner PA-C Work Phone: [facility] 08-19-2024 09:05-0500 Body mass index (BMI) [Ratio] 33.08 kg/m2 Carl Clutter PA-C Work Phone: [facility] 08-19-2024 09:05-0500 Body temperature 100.09 [degF] Carl Clutter PA-C Work Phone: [facility] 08-19-2024 09:05-0500 Body weight 74.3 kg Carl Clutter PA-C Work Phone: [facility] 08-19-2024 09:05-0500 Diastolic blood pressure 82 mm[Hg] Carl Clutter PA-C Work Phone: [facility] 08-19-2024 09:05-0500 Heart rate 104 /min Carl Clutter PA-C Work Phone: [facility] 08-19-2024 09:05-0500 Respiratory rate 18 /min Carl Clutter PA-C Work Phone: [facility] 08-19-2024 09:05-0500 SaO2% (BldA) [Mass fraction] 100 % Carl Clutter PA-C Work Phone: [facility] 08-19-2024 09:05-0500 Systolic blood pressure 118 mm[Hg] Carl Clutter PA-C Work Phone: [facility] 02-04-2024 15:47-0400 Body mass index (BMI) [Ratio] 32.02 kg/m2 Meliton Moomaw MARKETING TECHNOLOGIST.ASSEMBLER TUBING Work Phone: [facility] 02-04-2024 15:47-0400 Body temperature 97.39 [degF] Meliton Moomaw MARKETING TECHNOLOGIST.ASSEMBLER TUBING Work Phone: [facility] 02-04-2024 15:47-0400 Body weight 71.9 kg Meliton Moomaw MARKETING TECHNOLOGIST.ASSEMBLER TUBING Work Phone: [facility] 02-04-2024 15:47-0400 Diastolic blood pressure 77 mm[Hg] Meliton Moomaw MARKETING TECHNOLOGIST.ASSEMBLER TUBING Work Phone: [facility] 02-04-2024 15:47-0400 Heart rate 71 /min Meliton Moomaw MARKETING TECHNOLOGIST.ASSEMBLER TUBING Work Phone: [facility] 02-04-2024 15:47-0400 Respiratory rate 18 /min Meliton Moomaw MARKETING TECHNOLOGIST.ASSEMBLER TUBING Work Phone: [facility] 02-04-2024 15:47-0400 SaO2% (BldA) [Mass fraction] 99 % Meliton Moomaw MARKETING TECHNOLOGIST.ASSEMBLER TUBING Work Phone: [facility] 02-04-2024 15:47-0400 Systolic blood pressure 118 mm[Hg] Meliton Moomaw MARKETING TECHNOLOGIST.ASSEMBLER TUBING Work Phone: [facility] 12-24-2023 14:46-0400 Body height 149.9 cm Richard Mcclain MD Work Phone: [facility] 12-24-2023 14:46-0400 Body mass index (BMI) [Ratio] 33.12 kg/m2 Richard Mcclain MD Work Phone: [facility] 12-24-2023 14:46-0400 Body weight 74.39 kg Richard Mcclain MD Work Phone: [facility] 12-24-2023 14:46-0400 Diastolic blood pressure 90 mm[Hg] Richard Mcclain MD Work Phone: [facility] 12-24-2023 14:46-0400 Heart rate 79 /min Richard Mcclain MD Work Phone: [facility] 12-24-2023 14:46-0400 SaO2% (BldA) [Mass fraction] 99 % Richard Mcclain MD Work Phone: [facility] 12-24-2023 14:46-0400 Systolic blood pressure 110 mm[Hg] Richard Mcclain MD Work Phone: [facility] 10-22-2023 09:13-0400 Body height 149.9 cm Rina Bogner PA-C Work Phone: [facility] 10-22-2023 09:130400 Body mass index (BMI) [Ratio] 33.33 kg/m2 Rina Bogner PA-C Work Phone: [facility] 10-22-2023 09:130400 Body temperature 97.5 [degF] Rina Bogner PA-C Work Phone: [facility] 10-22-2023 09:130400 Body weight 74.84 kg Rina Bogner PA-C Work Phone: [facility] 10-22-2023 09:13-0400 Diastolic blood pressure 68 mm[Hg] Rina Bogner PA-C Work Phone: [facility] 10-22-2023 09:13-0400 Heart rate 74 /min Rina Bogner PA-C Work Phone: [facility] 10-22-2023 09:13-0400 Respiratory rate 12 /min Rina Bogner PA-C Work Phone: [facility] 10-22-2023 09:130400 SaO2% (BldA) [Mass fraction] 98 % Rina Bogner PA-C Work Phone: [facility] 10-22-2023 09:13-0400 Systolic blood pressure 110 mm[Hg] Rina Bogner PA-C Work Phone: [facility] 08-22-2023 16:19-0500 Body height 149.9 cm Beto Vargas MD Work Phone: [facility] 08-22-2023 16:19-0500 Body weight 72.58 kg Beto Vargas MD Work Phone: [facility] 08-22-2023 16:19-0500 Diastolic blood pressure 66 mm[Hg] Beto Vargas MD Work Phone: [facility] 08-22-2023 16:19-0500 Systolic blood pressure 110 mm[Hg] Beto Vargas MD Work Phone: [facility] 06-09-2023 20:18-0500 Respiratory rate 14 /min [facility] 06-09-2023 16:07-0500 Body height 149.86 cm [facility] 06-09-2023 16:07-0500 Body mass index (BMI) [Ratio] 31.9 kg/m2 [facility] 06-09-2023 16:07-0500 Body temperature 97.6 [degF] [facility] 06-09-2023 16:07-0500 Body weight 71.75 kg [facility] 06-09-2023 16:07-0500 Diastolic blood pressure 82 mm[Hg] [facility] 06-09-2023 16:07-0500 Heart rate 93 /min [facility] 06-09-2023 16:07-0500 SaO2% (BldA) [Mass fraction] 98 % [facility] 06-09-2023 16:07-0500 Systolic blood pressure 119 mm[Hg] [facility] 06-09-2023 08:19-0500 Body temperature 97.7 [degF] Hero Pendlebin MARKETING TECHNOLOGIST.ASSEMBLER TUBING Work Phone: [facility] 06-09-2023 08:19-0500 Body weight 72.12 kg Hero Riggins MARKETING TECHNOLOGIST.ASSEMBLER TUBING Work Phone: [facility] 06-09-2023 08:19-0500 Diastolic blood pressure 74 mm[Hg] Hero Clairelebin MARKETING TECHNOLOGIST.ASSEMBLER TUBING Work Phone: [facility] 06-09-2023 08:19-0500 Heart rate 83 /min Hero Pendlebin MARKETING TECHNOLOGIST.ASSEMBLER TUBING Work Phone: [facility] 06-09-2023 08:19-0500 Respiratory rate 18 /min Hero Pendlebin MARKETING TECHNOLOGIST.ASSEMBLER TUBING Work Phone: [facility] 06-09-2023 08:19-0500 SaO2% (BldA) [Mass fraction] 99 % Hero Clairelebin MARKETING TECHNOLOGIST.ASSEMBLER TUBING Work Phone: [facility] 06-09-2023 08:19-0500 Systolic blood pressure 106 mm[Hg] [facility] MARKETING TECHNOLOGIST.ASSEMBLER TUBING Work Phone: [facility] 06-06-2023 16:02-0500 Body temperature 97.3 [degF] [facility] MARKETING TECHNOLOGIST.ASSEMBLER TUBING Work Phone: [facility] 06-06-2023 16:02-0500 Body weight 72.[address] [facility] MARKETING TECHNOLOGIST.ASSEMBLER TUBING Work Phone: [facility] 06-06-2023 16:02-0500 Diastolic blood pressure 78 mm[Hg] [facility] MARKETING TECHNOLOGIST.ASSEMBLER TUBING Work Phone: [facility] 06-06-2023 16:02-0500 Heart rate 61 /min [facility] MARKETING TECHNOLOGIST.ASSEMBLER TUBING Work Phone: [facility] 06-06-2023 16:02-0500 Respiratory rate 16 /min [facility] MARKETING TECHNOLOGIST.ASSEMBLER TUBING Work Phone: [facility] 06-06-2023 16:02-0500 SaO2% (BldA) [Mass fraction] 98 % [facility] MARKETING TECHNOLOGIST.ASSEMBLER TUBING Work Phone: [facility] 06-06-2023 16:02-0500 Systolic blood pressure 110 mm[Hg] [facility] MARKETING TECHNOLOGIST.ASSEMBLER TUBING Work Phone: [facility] 10-31-2022 16:04-0400 Body temperature 98.4 [degF] Latoya Athy PA-C Work Phone: [facility] 10-31-2022 16:04-0400 Body weight 69.49 kg Latoya Athy PA-C Work Phone: [facility] 10-31-2022 16:04-0400 Diastolic blood pressure 80 mm[Hg] Latoya Athy PA-C Work Phone: [facility] 10-31-2022 16:04-0400 Heart rate 95 /min Latoya Athy PA-C Work Phone: [facility] 10-31-2022 16:04-0400 Respiratory rate 20 /min Latoya Morales PA-C Work Phone: [facility] 10-31-2022 16:04-0400 SaO2% (BldA) [Mass fraction] 98 % Latoya Morales PA-C Work Phone: [facility] 10-31-2022 16:04-0400 Systolic blood pressure 110 mm[Hg] Latoya Morales PA-C Work Phone: [facility] 10-29-2022 18:42-0400 Body temperature 98.2 [degF] Estefanía Vargas APRN.ASSEMBLER TUBING Work Phone: [facility] 10-29-2022 18:42-0400 Body weight 71.22 kg Estefanía Vargas APRN.ASSEMBLER TUBING Work Phone: [facility] 10-29-2022 18:42-0400 Diastolic blood pressure 72 mm[Hg] Estefanía Vargas APRN.ASSEMBLER TUBING Work Phone: [facility] 10-29-2022 18:42-0400 Heart rate 102 /min Estefanía Vargas APRN.ASSEMBLER TUBING Work Phone: [facility] 10-29-2022 18:42-0400 Respiratory rate 18 /min Estefanía Vargas APRN.ASSEMBLER TUBING Work Phone: [facility] 10-29-2022 18:42-0400 SaO2% (BldA) [Mass fraction] 99 % Estefanía Vargas APRN.ASSEMBLER TUBING Work Phone: [facility] 10-29-2022 18:42-0400 Systolic blood pressure 124 mm[Hg] Estefanía Vargas APRN.ASSEMBLER TUBING Work Phone: [facility] 07-25-2022 17:48-0500 Body temperature 97.81 [degF] Alverto Prabhakar MD Work Phone: [facility] 07-25-2022 17:48-0500 Body weight 67.59 kg Alverto Prabhakar MD Work Phone: [facility] 07-25-2022 17:48-0500 Diastolic blood pressure 68 mm[Hg] Alverto Prabhakar MD Work Phone: [facility] 07-25-2022 17:48-0500 Heart rate 82 /min Alverto Prabhakar MD Work Phone: [facility] 07-25-2022 17:48-0500 Respiratory rate 16 /min Alverto Prabhakar MD Work Phone: [facility] 07-25-2022 17:48-0500 SaO2% (BldA) [Mass fraction] 98 % Alverto Prabhakar MD Work Phone: [facility] 07-25-2022 17:48-0500 Systolic blood pressure 106 mm[Hg] Alverto Prabhakar MD Work Phone: [facility] 11-23-2021 15:28-0400 Body weight 63.05 kg Cee Marshall APRN.ASSEMBLER TUBING Work Phone: [facility] 11-23-2021 15:28-0400 Diastolic blood pressure 64 mm[Hg] Cee Marshall APRN.ASSEMBLER TUBING Work Phone: [facility] 11-23-2021 15:28-0400 Systolic blood pressure 102 mm[Hg] Cee Marshall APRN.ASSEMBLER TUBING Work Phone: [facility] Encounters Encounter Date Encounter Type Care Provider Facility Start: 02-16-2025 End: 02-16-2025 Patient encounter procedure Elisa Geller APRN.ASSEMBLER TUBING Work Phone: [facility] Comment on above: Non-recurrent acute serous otitis media of left ear Start: 02-16-2025 End: 02-16-2025 ambulatory RICHARD MCCLAIN Facility:[facility] Start: 02-13-2025 End: 02-15-2025 Refill Beto Vargas MD Work Phone: OB/Gynecology Comment on above: Refill Request Start: 12-26-2024 End: 12-28-2024 ambulatory Richard Mcclain MD Work Phone: [facility] Start: 12-26-2024 End: 12-28-2024 Patient encounter procedure Richard Mcclain MD Work Phone: [facility] Comment on above: Yearly doctor appoin tment with DR. Mcclain Start: 11-13-2024 End: 11-13-2024 ambulatory NINA PHILLIP Facility:[facility] Start: 10-15-2024 End: 10-15-2024 ambulatory LIN LÓPEZ Facility:[facility] Start: 10-13-2024 End: 10-13-2024 Refill Beto Vargas MD Work Phone: OB/Gynecology Comment on above: Refill Request Start: 10-09-2024 End: 12-09-2024 Follow-up encounter Paige Phillips MD Work Phone: OB/Gynecology Start: 10-08-2024 End: 10-08-2024 Patient encounter procedure Beto Vargas MD Work Phone: OB/Gynecology Comment on above: Dysuria (Primary Dx) ; Encounter for IUD removal and reinsertion; Vaginal irritation; Cervical cancer screening; Special screening examination for human papillomavirus (HPV) Start: 10-08-2024 End: 10-08-2024 ambulatory BETO VARGAS Facility:[facility] Start: 08-25-2024 End: 10-25-2024 Follow-up encounter Rina Espinal PA-C Work Phone: [facility] Start: 08-25-2024 End: 08-25-2024 Subsequent hospital visit by physician Melanie [facility] Work Phone: Radiology Comment on above: Acute cough [R05.1] Start: 08-25-2024 End: 08-25-2024 ambulatory RINA ESPINAL Facility:[facility] Start: 08-25-2024 End: 08-25-2024 Office outpatient visit 15 minutes Rina Espinal PA-C Work Phone: [facility] Comment on above: Acute cough (Primary Dx); Nausea and vomiting, unspecified vomiting type Start: 08-23-2024 End: 08-24-2024 ambulatory Richard Mcclain MD Work Phone: [facility] Comment on above: Flu Start: 08-19-2024 End: 08-19-2024 ambulatory [facility] Facility:[facility] Start: 08-19-2024 End: 08-19-2024 Office outpatient visit 25 minutes Carl Finn PA-C Work Phone: [facility] Comment on above: Influenza (Primary D x) Start: 08-08-2024 End: 08-10-2024 ambulatory Cee Marshall APRN.ASSEMBLER TUBING Work Phone: OB/Gynecology Start: 08-08-2024 End: 08-10-2024 Patient encounter procedure Cee Marshall APRN.ASSEMBLER TUBING Work Phone: OB/Gynecology Comment on above: Next appointment Start: 06-20-2024 End: 06-22-2024 Refill Beto Vargas MD Work Phone: OB/Gynecology Comment on above: Refill Request Start: 03-12-2024 End: 03-12-2024 Emergency department patient visit [facility] Facility:[facility] Start: 03-12-2024 End: 03-12-2024 ambulatory Richard Mcclain MD Work Phone: [facility] Comment on above: Chest Pain Start: 02-04-2024 End: 02-04-2024 Patient encounter procedure Meliton Brendanoh FELIZ.ASSEMBLER TUBING Work Phone: [facility] Comment on above: Left ear pain (Prima ry Dx) Start: 01-09-2024 ambulatory KELLY GROVES Facili ty:[facility] Start: 01-09-2024 End: 01-09-2024 Subsequent hospital visit by physician Stereo/Ultrasound Biopsy [facility] RADIO MAMMO REFLE[facility] Comment on above: Arrived Abnormal ultrasound of breast [R92.8] Start: 12-24-2023 End: 12-24-2023 Patient encounter procedure Richard Mcclain MD Work Phone: [facility] Comment on above: Well adult exam (Denise sebastian Dx); Anxiety; Screening for lipid disorders Start: 12-24-2023 End: 12-24-2023 Patient encounter status Richard Mcclain MD Work Phone: [facility] Work Phone: Start: 11-19-2023 End: 11-19-2023 ambulatory Jarred Barlow [facility] Physical Therapy Comment on above: Chronic bilateral lo w back pain without sciatica (Primary Dx); Chronic bilateral thoracic back pain Start: 10-22-2023 ambulatory Richard Mcclain MD Work Phone: [facility] Comment on above: Back pain Start: 10-22-2023 End: 10-22-2023 Office outpatient visit 25 minutes Rina Espinal PA-C Work Phone: [facility] Comment on above: Chronic bilateral lo w back pain without sciatica (Primary Dx); Chronic bilateral thoracic back pain; Eustachian tube dysfunction, right Start: 10-17-2023 Refill Beto Medellin Work Phone: OB/Gynecology Comment on above: Refill Request Start: 09-04-2023 ambulatory Beto Medellin Work Phone: OB/Gynecology Comment on above: HSV Start: 08-22-2023 End: 08-22-2023 Patient encounter procedure Beto Vargas MD Work Phone: OB/Gynecology Comment on above: Encounter for gyneco logical examination (general) (routine) without abnormal findings (Primary Dx); Screening for cervical cancer; Encounter for screening for human papillomavirus (HPV) Start: 08-22-2023 End: 08-22-2023 Patient encounter status Beto Vargas MD Work Phone: [facility] Start: 07-08-2023 Telephone encounter Richard Mcclain MD Work Phone: [facility] Comment on above: Patient Update Start: 06-09-2023 End: 06-09-2023 Emergency department patient visit Jaron Castaneda Facility:[facility] Start: 06-09-2023 End: 06-09-2023 Office outpatient visit 15 minutes Hero Riggins APRN.CNP Work Phone: [facility] Comment on above: Viral illness (Prima ry Dx) Start: 06-06-2023 End: 06-06-2023 Office outpatient visit 15 minutes Hero Riggins MARKETING TECHNOLOGIST.ASSEMBLER TUBING Work Phone: [facility] Comment on above: Viral URI (Primary D x); Sore throat Start: 03-05-2023 End: 03-05-2023 Subsequent hospital visit by physician Diagnostic Mammo [facility] Start: 01-21-2023 Telephone encounter Celia pat MARKETING TECHNOLOGIST.CNM Work Phone: [facility] Comment on above: Orders Start: 11-01-2022 Telephone encounter Marlon PADILLA Work Phone: [facility] Comment on above: Results Start: 10-31-2022 End: 10-31-2022 Patient encounter procedure Latoya Morales PA-C Work Phone: [facility] Comment on above: Viral URI (Primary D x) Start: 10-29-2022 End: 10-29-2022 Patient encounter procedure Estefanía Vargas APRN.ASSEMBLER TUBING Work Phone: [facility] Comment on above: Sore throat (Primary Dx); Nausea and vomiting, unspecified vomiting type Start: 08-02-2022 Orders Only Celia moulton APRN.CNM Work Phone: OB/Gynecology Comment on above: Mastalgia (Primary D x) Start: 07-25-2022 End: 07-25-2022 Patient encounter procedure Alverto Prabhakar MD Work Phone: [facility] Comment on above: Sore throat (Primary Dx); Exposure to strep throat Start: 02-10-2022 ambulatory Cee ARNETT RN.ASSEMBLER TUBING Work Phone: OB/Gynecology Comment on above: Valacyclovir Start: 01-08-2022 ambulatory Richard Mcclain MD Work Phone: [facility] Comment on above: Question Start: 11-28-2021 End: 11-28-2021 Subsequent hospital visit by physician Us [facility] 1 Work Phone: Radiology Comment on above: Mastalgia [N64.4] Start: 11-23-2021 End: 11-23-2021 Patient encounter procedure Cee Marshall APRN.ASSEMBLER TUBING Work Phone: OB/Gynecology Comment on above: Acute vaginitis (Denise sebastian Dx); Mastalgia; Screen for STD (sexually transmitted disease); Need for prophylactic vaccination/inoculation against viral disease Start: 11-23-2021 ambulatory Cee ARNETT RN.ASSEMBLER TUBING Work Phone: OB/Gynecology Comment on above: Medical concern Start: 11-15-2021 Telephone encounter Cee perez APRN.ASSEMBLER TUBING Work Phone: OB/Gynecology Comment on above: Results; New Medicat ion Procedures Date Procedure Procedure Detail Performing Clinician Start: 10-08-2024 Urnls dip stick/tabl et rgnt auto w/o microscopy Beto Vargas MD Work Phone: Start: 08-25-2024 Radiologic exam ches t 2 views Rina Espinal PA-C Work Phone: Start: 08-25-2024 COVID & INFLUENZA A/ B & RSV PCR, ROUTINE Rina Espinal PA-C Work Phone: Start: 01-09-2024 Us breast uni real t olivia with image limited Kelly Groves MD Work Phone: Start: 01-09-2024 Digital breast tomosynthesis bilateral Kelly Groves MD Work Phone: Start: 12-24-2023 Adult depression scr eening assessment Meilton Bahena MARKETING TECHNOLOGIST.ASSEMBLER TUBING Work Phone: Start: 06-09-2023 SARS-CoV-2 & FLU Ant igen (Rapid) Start: 06-06-2023 STREP A MOLECULAR (POC) [facility] Provider Start: 03-05-2023 Digital breast tomosynthesis bilateral Cee Marshall APRN.ASSEMBLER TUBING Work Phone: Start: 10-29-2022 STREP A MOLECULAR (POC) Yamileth Boothe APRN.ASSEMBLER TUBING Work Phone: Start: 07-25-2022 STREP A MOLECULAR (POC) Latoya Morales PA-C Work Phone: Start: 11-28-2021 Us breast uni real t olivia with image limited Cee Marshall APRN.ASSEMBLER TUBING Work Phone: Start: 11-06-2018 Adult depression scr eening assessment Cee Marshall APRN.ASSEMBLER TUBING Work Phone: Plan of Treatment Date Care Activity Detail Author Start: 10-08-2029 Screening for malign ant neoplasm of cervix Cervical Cancer Screening [facility] Start: 08-21-2028 Screening for malign ant neoplasm of cervix [facility] Start: 10-14-2025 End: 10-14-2025 Patient encounter procedure 10/14/2025 3:30 PM EDT Office Visit OB/Gynecology [address] [place], [place] [id number] Celia Lombardo APRN.[facility] [address] [place], [place] [id number] Annual OB/Gynecology Comment on above: Annual Start: 06-13-2025 HPV TESTING HPV TESTING [facility] Start: 06-13-2025 PAP TESTING PAP TESTING [facility] Start: 06-13-2025 Screening for malign ant neoplasm of cervix [facility] Start: 05-28-2025 End: 05-28-2025 Patient encounter procedure 05/28/2025 3:40 PM EST Office Visit [facility] [address] [place] [id number] Richard Mcclain MD [address] [place], [place] [id number] Physical [facility] Comment on above: Physical Start: 02-22-2025 Influenza vaccination [facility] Start: 12-23-2024 Anxiety Screening Anxiety Screening [facility] Start: 12-23-2024 Covid-19 Vaccine () Covid-19 Vaccine () [facility] Comment on above: Postponed from 02/22 (Declined at this time) Start: 12-23-2024 Depression Screening Depression Scre ening [facility] Start: 12-23-2024 HPV Vaccine (2 - 3-d ose SCDM series) HPV Vaccine (2 - 3-dose SCDM series) [facility] Comment on above: Postponed from 12/21 (Declined at this time) Start: 12-23-2024 HPV Vaccine (2 - Ris k 3-dose SCDM series) HPV Vaccine (2 - Risk 3-dose SCDM series) [facility] Comment on above: Postponed from 12/21 (Declined at this time) Start: 10-15-2024 End: 10-15-2024 Patient encounter procedure 10/15/2024 1:40 PM EDT Office Visit OB/Gynecology [address] [place] [address] Lin López MD [address] [place] [address] IUD insert OB/Gynecology Comment on above: IUD insert Start: 10-08-2024 End: 10-08-2024 Patient encounter procedure 10/08/2024 3:40 PM EDT Office Visit OB/Gynecology [address] [place] [address] Beto Vargas MD [address] [place] [address] ANNUAL OB/Gynecology Comment on above: ANNUAL Start: 09-10-2024 Urine microalbumin profile [facility] Start: 08-27-2024 End: 08-27-2024 Patient encounter procedure 08/27/2024 4:00 PM EST Office Visit OB/Gynecology [address] [place] [address] Beto Vargas MD [address] [place] [address] (Fax) ANNUAL OB/Gynecology Comment on above: ANNUAL Start: 08-25-2024 End: 08-25-2024 Patient encounter procedure 08/25/2024 9:40 AM EST Office Visit [facility] [address] [place] [address] Rina Espinal PA-C [address] [place] [address] Flu, possible bronchitis or pneumonia, congestion. [facility] Comment on above: Flu, possible bronch itis or pneumonia, congestion. Start: 02-23-2024 Covid-19 Vaccine () Covid-19 Vaccine () [facility] Start: 02-23-2024 Covid-19 Vaccine () Covid-19 Vaccine () [facility] Start: 02-23-2024 Influenza vaccination [facility] Start: 01-09-2024 End: 01-09-2024 Patient encounter procedure [facility] Comment on above: Abnormal ultrasound of breast [R92.8] Bilateral diag mamm and Right breast ultrasound Abnormal ultrasound of breast [R92.8] Bilateral diag mamm and Right breast ultraound Start: 12-24-2023 End: 12-24-2023 Patient encounter procedure 12/24/2023 3:00 PM EDT Office Visit Family [facility] [address] [place] [address] Richard Mcclain MD [address] [place] [address] Just over all health [facility] Comment on above: Just over all health Start: 12-24-2023 End: 03-24-2024 Comprehensive metabolic 2000 panel - Serum or Plasma [facility] Work Phone: Comment on above: Expected: 12/24/2023 , Expires: 03/24/2024 Start: 12-24-2023 End: 03-24-2024 Lipid 1996 panel - Serum or Plasma [facility] Comment on above: Expected: 12/24/2023 , Expires: 03/24/2024 Start: 12-24-2023 End: 03-24-2024 Thyrotropin [Units/volume] in Serum or Plasma [facility] Comment on above: Expected: 12/24/2023 , Expires: 03/24/2024 Start: 11-12-2023 End: 11-12-2023 ambulatory 11/12/2023 12:00 PM EDT OT/PT/Speech Visit [facility] [address] [place] [address] OYamileth Lopez, PT Chronic bilateral low back pain without sciatica [M54.50, G89.29] [facility] Comment on above: Chronic bilateral lo w back pain without sciatica [M54.50, G89.29] Start: 06-24-2023 Behavioral Health Screening Behavioral Health Screening [facility] Start: 06-24-2023 Depression Assessment Depression Ass essment [facility] Start: 06-13-2023 PAP TESTING PAP TESTING [facility] Start: 06-09-2023 [facility] Start: 06-09-2023 [facility] Start: 06-09-2023 End: 06-23-2023 Influenza virus A and B RNA and SARS-CoV-2 (COVID-19) N gene panel - Respiratory specimen by AUGUSTA with probe detection COVID & INFLUENZA A/B NAAT, ROUTINE Microbiology Routine Viral illness Expected: 06/09/2023, Expires: 06/23/2023 [facility] Work Phone: Comment on above: Expected: 06/09/2023 , Expires: 06/23/2023 Start: 02-22-2023 Covid-19 Vaccine () Covid-19 Vaccine () [facility] Start: 02-22-2023 Influenza vaccination [facility] Start: 01-30-2023 End: 09-01-2023 Us breast uni real time with image limited US BREAST LTD RT Radiology Routine Mastalgia Expected: 01/30/2023, Expires: 09/01/2023 [facility] Work Phone: Comment on above: Expected: 01/30/2023 , Expires: 09/01/2023 Start: 10-31-2022 End: 11-14-2022 Influenza virus A and B RNA and SARS-CoV-2 (COVID-19) N gene panel - Respiratory specimen by AUGUSTA with probe detection [facility] Work Phone: Comment on above: Expected: 10/31/2022 , Expires: 11/14/2022 Start: 07-25-2022 End: 08-08-2022 Influenza virus A and B RNA and SARS-CoV-2 (COVID-19) N gene panel - Respiratory specimen by AUGUSTA with probe detection [facility] Work Phone: Comment on above: Expected: 07/25/2022 , Expires: 08/08/2022 Start: 06-24-2022 DEPRESSION ASSESSMENT DEPRESSION ASS ESSMENT [facility] Start: 05-22-2022 9vhpv vacc 2/3 dose sched im use HUMAN PAPILLOMAVIRUS 9-VALENT HPV IM Immunization/Injection Routine Need for prophylactic vaccination/inoculation against viral disease Expected: 05/22/2022 (Approximate) [facility] Work Phone: Comment on above: Expected: 05/22/2022 (Approximate) Start: 02-22-2022 Influenza vaccination [facility] Start: 01-22-2022 9vhpv vacc 2/3 dose sched im use HUMAN PAPILLOMAVIRUS 9-VALENT HPV IM Immunization/Injection Routine Need for prophylactic vaccination/inoculation against viral disease Expected: 01/22/2022 (Approximate) [facility] Work Phone: Comment on above: Expected: 01/22/2022 (Approximate) Start: 12-21-2021 HPV VACCINE (2 - 3-d ose SCDM series) HPV VACCINE (2 - 3-dose SCDM series) [facility] Start: 12-21-2021 HPV Vaccine (2 - Ris k 3-dose SCDM series) HPV Vaccine (2 - Risk 3-dose SCDM series) [facility] Start: 12-21-2021 HPV Vaccine (2 - Ris k 3-dose series) HPV Vaccine (2 - Risk 3-dose series) [facility] Start: 11-23-2021 End: 01-23-2022 Trichomonas vaginalis Ag [Presence] in Genital specimen by Immunoassay TRICHOMONAS PREP/ANTIGEN Microbiology Routine Acute vaginitis Screen for STD (sexually transmitted disease) Expected: 11/23/2021, Expires: 01/23/2022 [facility] Work Phone: Comment on above: Expected: 11/23/2021 , Expires: 01/23/2022 Start: 11-07-2019 Adult depression screening assessment DEPRESSION SCREENING [facility] Start: 1997 COVID-19 VACCINE (#1) COVID-19 VACCI NE (#1) [facility] Start: 01-04-1993 COVID-19 VACCINE (#1) COVID-19 VACCI NE (#1) [facility] Bacteria identified in Urine by Culture BACTERIAL CULTURE, URINE Microbiology Routine Dysuria 10/08/2024 4:02 PM EDT [facility] BACTERIAL VAGINOSIS NAAT BACTERIAL VAGINOSIS NAAT Lab Routine Dysuria 10/08/2024 4:02 PM EDT [facility] LISA/TRICHOMONAS NAAT LISA/TRICHOMONAS NAAT Lab Routine Dysuria 10/08/2024 4:02 PM EDT [facility] Chlamydia trachomatis+Neisseria gonorrhoeae DNA [Presence] in Unspecified specimen by AUGUSTA with probe detection GC/CHLAMYDIA DNA DET Lab Routine Acute vaginitis Screen for STD (sexually transmitted disease) 11/23/2021 4:06 PM EDT [facility] Work Phone: End: 12-23-2022 Diagnostic mammography computer-aided detcj uni DAVID DIAGNOSTIC RT Radiology Routine Mastalgia 1 Occurrences starting 11/23/2021 until 12/23/2022 [facility] Work Phone: Comment on above: 1 Occurrences starti ng 11/23/2021 until 12/23/2022 HPV W/GENOTYPE THIN PREP HPV W/GENOTYPE THIN PREP Lab Routine Screening for cervical cancer Encounter for screening for human papillomavirus (HPV) 08/22/2023 4:41 PM EST [facility] Work Phone: Insertion intrauteri ne device iud INSERT INTRAUTERINE DEVICE Procedures Routine Encounter for IUD removal and reinsertion Ordered: 10/08/2024 [facility] Work Phone: Comment on above: Ordered: 10/08/2024 End: 02-21-2024 DAVID DIAGNOSTIC RIGHT DAVID DIAGNOSTIC RIGHT Radiology Routine Mass of right breast, unspecified quadrant 1 Occurrences starting 01/22/2023 until 02/21/2024 [facility] Work Phone: Comment on above: 1 Occurrences starti ng 01/22/2023 until 02/21/2024 Microscopic observat ion [Identifier] in Vaginal fluid by Gram stain BACT/LISA VAG GRAM STAIN Microbiology Routine Acute vaginitis 11/23/2021 4:06 PM EDT [facility] Work Phone: PAP TEST PAP TEST Lab Rou kelly Screening for cervical cancer Encounter for screening for human papillomavirus (HPV) 08/22/2023 4:41 PM EST [facility] Work Phone: PAP TEST PAP TEST Lab Rou [facility] Cervical cancer screening Special screening examination for human papillomavirus (HPV) 10/08/2024 4:07 PM EDT [facility] Patient Education ED Otitis Media Adult [facility] Work Phone: Patient referral [facility] Work Phone: Removal intrauterine device iud REMOVE INTRAUTERINE DEVICE Procedures Routine Encounter for IUD removal and reinsertion Ordered: 10/08/2024 [facility] Comment on above: Ordered: 10/08/2024 Therapeutic prophylactic/dx injection subq/im THER/PROPH/DIAG INJ, SC/IM Procedures Routine Need for prophylactic vaccination/inoculation against viral disease Ordered: 11/23/2021 [facility] Work Phone: Comment on above: Ordered: 11/23/2021 End: 12-23-2022 Us breast uni real time with image limited US BREAST LTD RT Radiology Routine Mastalgia 1 Occurrences starting 11/23/2021 until 12/23/2022 [facility] Work Phone: Comment on above: 1 Occurrences starti ng 11/23/2021 until 12/23/2022 [facility] Immunizations Immunization Date Immunization Notes Care Provider Swetha jon 11-23-2021 Human Papillomavirus 9-valent vaccine Cee Marshall APRN.ASSEMBLER TUBING Work Phone: [facility] 09-28-2020 hepatitis B vaccine, adult dosage Cee Marshall APRN.CNP Work Phone: [facility] Work Phone: 05-09-2020 hepatitis B vaccine, adult dosage Cee Marshall APRN.ASSEMBLER TUBING Work Phone: [facility] Work Phone: 03-22-2020 hepatitis B vaccine, adult dosage Cee Marshall APRN.ASSEMBLER TUBING Work Phone: [facility] Work Phone: 05-25-2015 influenza, seasonal, injectable Cee Marshall APRN.ASSEMBLER TUBING Work Phone: [facility] 05-25-2015 influenza, seasonal, injectable, preservative free Richard Mcclain MD Work Phone: [facility] 05-25-2015 influenza virus vacc ine, unspecified formulation Diagnostic Wstr [facility] 09-10-2014 tetanus toxoid, redu kinga diphtheria toxoid, and acellular pertussis vaccine, adsorbed Cee Marshall APRN.ASSEMBLER TUBING Work Phone: [facility] Payers Date Payer Category Payer Medicaid [id number] 2023 Self-pay 2022 Medicaid [id number] 2020 Medicaid [employer] MEDICA[employer] [id number] 2020[facility] [phone] [address] [place] [address] Medicaid [id number] 2020 Medicaid [id number] 2013 Unknown [facility] COMMUNITY PLAN [id number] Unknown [id number] Unknown [id number] Unknown [employer] D *DO NOT USE* [id number] Unknown [facility] [id number] Social History Date Type Detail Facility Start: 01-15-2014 End: 10-29-2022 Tobacco smoking status NHIS Ex-smoker [facility] History of tobacco use Cigarette Smoker [facility] Start: 01-15-2014 End: 10-29-2022 Tobacco use and exposure Smokeless tobacco non-user [facility] Start: 01-23-2021 End: 11-13-2024 Alcohol intake Current drinker of alcohol (finding) [facility] Start: 10-15-2019 End: 05-26-2020 History SDOH Alcohol Frequency 2 [facility] Start: 10-15-2019 End: 05-26-2020 History SDOH Alcohol Std Drinks 1 [facility] Start: 01-15-2020 History SDOH Alcohol Comment occasionally [facility] Start: 10-15-2019 History SDOH Social Connections Phone 5 [facility] Start: 10-15-2019 History SDOH Physical Activity DPW 3 [facility] Start: 05-26-2020 History SDOH Financial 4 [facility] Start: 10-14-2019 Education 12 [facility] Start: 1990 Sex Assigned At Female [facility] Start: 11-13-2021 End: 11-24-2021 Exposure to SARS-CoV-2 (event) Not sure [facility] History of tobacco use Current smoker [facility] Start: 10-14-2019 End: 08-22-2023 History of Social function [facility] Start: 10-14-2019 End: 08-22-2023 Social connection and isolation panel [facility] Do you belong to any clubs or organizations such as mormonism groups, unions, fraternal or athletic groups, or school groups? No [facility] Are you now , , , , never or living with a partner? [facility] How often to you hav e a drink containing alcohol? Monthly or less [facility] How many standard dr inks containing alcohol do you have on a typical day? 1 or 2 [facility] How often do you hav e 6 or more drinks on 1 occasion? Never [facility] How hard is it for y ou to pay for the very basics like food, housing, medical care, and heating Not very hard [facility] Start: 05-25-2012 Adult Depression Screening Assessment 0 [facility] Do you feel stress - tense, restless, nervous, or anxious, or unable to sleep at night because your mind is troubled all the time - these days [OSQ] Very much [facility] (I/We) worried wheth er (my/our) food would run out before (I/we) got money to buy more. Never true [facility] Start: 05-07-2020 Gender identity Identifies as female gender (finding) [facility] Start: 05-07-2020 Sexual orientation Heterosexual (finding) [facility] Do you feel stress - tense, restless, nervous, or anxious, or unable to sleep at night because your mind is troubled all the time - these days [OSQ] Rather much [facility] Start: 06-09-2023 Tobacco smoking status NHIS Unknown if ever smoked [facility] Functional Status Date Assessment Result Facility 01-28-2015 Are you deaf, or do you have serious difficulty hearing No 01/28/2015 3:51 PM Agustina Mathew Ma [facility] 01-28-2015 Are you blind, or do you have serious difficulty seeing, even when wearing glasses No 01/28/2015 3:51 PM Agustina Mathew Ma [facility] 01-28-2015 Do you have serious difficulty walking or climbing stairs No 01/28/2015 3:51 PM Agustina Mathew Ma [facility] 01-28-2015 Do you have difficul ty dressing or bathing No 01/28/2015 3:51 PM Agustina Mathew Ma [facility] 01-28-2015 Because of a physica l, mental, or emotional condition, do you have difficulty doing errands alone such as visiting a physician's office or shopping No 01/28/2015 3:51 PM Agustina Mathew Ma [facility] Mental Status Date Assessment Result Facility 06-09-2023 Cognitive function Level Of Cons ciousness Awake;Alert;Appropriate [facility] Work Phone: 01-28-2015 Because of a physica l, mental, or emotional condition, do you have serious difficulty concentrating, remembering, or making decisions No 01/28/2015 3:51 PM EDT Masters Agustina Méndez [facility] Clinical Notes 06-04-2014 to 02-16-2025 Patient InstructionsElisa Geller APRN.PABLO - 02/16/2025 4:06 PM EDTTelephone Encounter - Geneva Cole RN - 10/13/2024 8:24 AM BLANKTBeto Vargas MD - 10/08/2024 3:04 PM EDT Note Date & Type Note Facility 02-16-2025 Instructions Elisa Geller APRN.PABLO - 02/16/2025 4:08 PM EDT 1. Non-recurrent acute serous otitis media of left ear (H65.02) - Acute onset of left ear pain with fluid visualized behind the tympanic membrane on exam. - Start antibiotic therapy. - Start Flonase nasal spray to help eliminate middle ear fluid and reduce pressure. - Tylenol or ibuprofen as needed for pain; advised that pain should improve after a couple doses of antibiotic. - Start the antibiotic prescribed today and follow the directions on the label. - Use the Flonase nasal spray as directed to help clear fluid from behind your eardrum. - Take Tylenol or ibuprofen as needed for ear pain relief. - After a couple of doses of the antibiotic, your ear pain should improve and you likely won t need additional pain medicine. documented in this encounter [facility] 02-16-2025 Note HNO ID: [id number] Author: ELISA GELLER APRN.ASSEMBLER TUBING Service: ? Author Type: Nurse Practitioner Type: Progress Notes Filed: 02/16/2025 16:08 Note Text: [facility] Sena is a 34 year old female. Patient presents with: Ear Pain: left increased last night Ear Pain The patient is a 34-year-old female presenting with acute onset left otalgia. Left Otalgia: - Onset last night; described as throbbing pain. - Initially intermittent in both ears, but intensified in the left ear this morning. - Denies recent URI symptoms, fever, or sore throat. - No otorrhea or hearing loss. - Has not taken any medication for the pain. - Denies recent swimming. Review of Systems Constitutional: (-) fever Ears/Nose/Mouth/Throat: (+) left ear pain, (-) hearing loss, (-) ear discharge, (-) nasal congestion, (-) rhinorrhea, (-) sore throat Respiratory: (-) cough Objective BP 122/80 Pulse 94 Temp 36.8 ?C (98.2 ?F) Resp 16 Wt 72.9 kg (160 lb 11.5 oz) LMP 11/22/2016 (LMP Unknown) SpO2 98% BMI 32.46 kg/m? 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 - levonorgestrel (MIRENA) 21 mcg/24hr (up to 8 yrs) 52 mg IUD 1 each by INTRAUTERINE route as directed. - valACYclovir (VALTREX) 1 gram tablet Take 1 tablet by mouth once daily. Start at beginning of outbreak. - amoxicillin (AMOXIL) 875 mg tablet Take 1 tablet by mouth two times a day for 7 days. FAMILY HISTORY Problem Relation Age of Onset - Cancer Mother - Anxiety disorder Mother - Bipolar disorder Father - Cancer Paternal Grandfather - Breast Cancer Paternal Grandmother - Thyroid Maternal Aunt - Breast Cancer Maternal Aunt SOCIAL HISTORY[1] Physical Exam Vitals and nursing note reviewed. Constitutional: General: She is not in acute distress. Appearance: Normal appearance. She is not ill-appearing. HENT: Right Ear: Tympanic membrane, ear canal and external ear normal. Left Ear: Ear canal and external ear normal. A middle ear effusion is present. Tympanic membrane is injected. Nose: Nose normal. Mouth/Throat: Mouth: Mucous membranes are moist. Pharynx: Oropharynx is clear. No oropharyngeal exudate or posterior oropharyngeal erythema. Cardiovascular: Rate and Rhythm: Normal rate and regular rhythm. Heart sounds: Normal heart sounds. Pulmonary: Effort: Pulmonary effort is normal. No respiratory distress. Breath sounds: Normal breath sounds. No wheezing or rales. Lymphadenopathy: Cervical: No cervical adenopathy. Skin: General: Skin is warm and dry. Findings: No erythema or rash. Neurological: Mental Status: She is alert. { 1. Non-recurrent acute serous otitis media of left ear (H65.02) - Acute onset of left ear pain with fluid visualized behind the tympanic membrane on exam. - Start antibiotic therapy. - Start Flonase nasal spray to help eliminate middle ear fluid and reduce pressure. - Tylenol or ibuprofen as needed for pain; advised that pain should improve after a couple doses of antibiotic. - Follow-up with your PCP in 3-5 days if symptoms have not improved or sooner if symptoms worsen - Discussed red flags and need for immediate medical evaluation if any occur. - Discussed supportive care treatment with fluids, rest and analgesia. - Discussed expected course of illness Elisa Geller APRN.ASSEMBLER TUBING and Recording using [employer] software for draft documentation of the visit was discussed with the patient/authorized sales representative groceries; all questions welcomed and answered. Patient/authorized sales representative groceries agreed to proceed Disposition The patient was discharged. OTC Medications were advised: Procedures [1] Social History Tobacco Use - Smoking status: Former Types: Cigarettes - Smokeless tobacco: Never Vaping Use - Vaping status: Never Used Substance Use Topics - Alcohol use: Yes Comment: occasionally - Drug use: No [facility] 02-16-2025 History of Present illness Narrative [facility] Yovany Sena is a 34 year old female. Patient presents with: Ear Pain: left increased last night Ear Pain The patient is a 34-year-old female presenting with acute onset left otalgia. Left Otalgia: - Onset last night; described as throbbing pain. - Initially intermittent in both ears, but intensified in the left ear this morning. - Denies recent URI symptoms, fever, or sore throat. - No otorrhea or hearing loss. - Has not taken any medication for the pain. - Denies recent swimming. Review of Systems Constitutional: (-) fever Ears/Nose/Mouth/Throat: (+) left ear pain, (-) hearing loss, (-) ear discharge, (-) nasal congestion, (-) rhinorrhea, (-) sore throat Respiratory: (-) cough Objective BP 122/80 Pulse 94 Temp 36.8 C (98.2 F) Resp 16 Wt 72.9 kg (160 lb 11.5 oz) LMP 11/22/2016 (LMP Unknown) SpO2 98% BMI 32.46 kg/m PAST MEDICAL HISTORY Diagnosis Date Adjustment reaction Asthma (HCC) as a baby Atypical squamous cells of undetermined significance (ASCUS) on Papanicolaou smear of cervix 2018 Human papillomavirus (HPV) type 16 DNA detected in cervical specimen 2019 Hypoglycemia PAST SURGICAL HISTORY Procedure Laterality Date DELIVERY ONLY 12/11/2014 , low transverse DILATION & CURETTAGE DX&/THER NONOBSTETRIC 08/2012 Dilation & curettage INSERTION OF IUD 2017 LEEP PROCEDURE ([employer])_*FL VAGINOSCOPY 07/16/2016 ALLERGIES Macrobid [Nitrofurantoin Monohyd/M-Cryst], Ciprofloxacin, and Lexapro [Escitalopram Oxalate] MEDICATIONS omeprazole (PRILOSEC) 20 mg capsule Take 1 capsule by mouth daily before breakfast. levonorgestrel (MIRENA) 21 mcg/24hr (up to 8 yrs) 52 mg IUD 1 each by INTRAUTERINE route as directed. valACYclovir (VALTREX) 1 gram tablet Take 1 tablet by mouth once daily. Start at beginning of outbreak. amoxicillin (AMOXIL) 875 mg tablet Take 1 tablet by mouth two times a day for 7 days. FAMILY HISTORY Problem Relation Age of Onset Cancer Mother Anxiety disorder Mother Bipolar disorder Father Cancer Paternal Grandfather Breast Cancer Paternal Grandmother Thyroid Maternal Aunt Breast Cancer Maternal Aunt SOCIAL HISTORY[1] Physical Exam Vitals and nursing note reviewed. Constitutional: General: She is not in acute distress. Appearance: Normal appearance. She is not ill-appearing. HENT: Right Ear: Tympanic membrane, ear canal and external ear normal. Left Ear: Ear canal and external ear normal. A middle ear effusion is present. Tympanic membrane is injected. Nose: Nose normal. Mouth/Throat: Mouth: Mucous membranes are moist. Pharynx: Oropharynx is clear. No oropharyngeal exudate or posterior oropharyngeal erythema. Cardiovascular: Rate and Rhythm: Normal rate and regular rhythm. Heart sounds: Normal heart sounds. Pulmonary: Effort: Pulmonary effort is normal. No respiratory distress. Breath sounds: Normal breath sounds. No wheezing or rales. Lymphadenopathy: Cervical: No cervical adenopathy. Skin: General: Skin is warm and dry. Findings: No erythema or rash. Neurological: Mental Status: She is alert. { 1. Non-recurrent acute serous otitis media of left ear (H65.02) - Acute onset of left ear pain with fluid visualized behind the tympanic membrane on exam. - Start antibiotic therapy. - Start Flonase nasal spray to help eliminate middle ear fluid and reduce pressure. - Tylenol or ibuprofen as needed for pain; advised that pain should improve after a couple doses of antibiotic. - Follow-up with your PCP in 3-5 days if symptoms have not improved or sooner if symptoms worsen - Discussed red flags and need for immediate medical evaluation if any occur. - Discussed supportive care treatment with fluids, rest and analgesia. - Discussed expected course of illness Elisa Geller APRN.ASSEMBLER TUBING and Recording using [employer] software for draft documentation of the visit was discussed with the patient/authorized sales representative groceries; all questions welcomed and answered. Patient/authorized sales representative groceries agreed to proceed Disposition The patient was discharged. OTC Medications were advised: Procedures [1] Social History Tobacco Use Smoking status: Former Types: Cigarettes Smokeless tobacco: Never Vaping Use Vaping status: Never Used Substance Use Topics Alcohol use: Yes Comment: occasionally Drug use: No documented in this encounter [facility] 11-13-2024 Note HNO ID: [id number] Author: NINA PHILLIP APRN.HEALTH AND FITNESS PROFESSOR Service: ? Author Type: Nurse Specialist Type: Progress Notes Filed: 11/13/2024 13:27 Note Text: Subjective Patient ID: Florencia is a 34 year old female who presents for Swelling (B/L leg). HPI Presents today regarding leg pain and swelling and intermittent chest pain. Called the office in February 2024 reporting chest pressure that was intermittent for 1 week. She was advised to go to the emergency department. Negative workup at [facility] at that time. Florencia is a 34-year-old female presenting with bilateral leg pain, left arm numbness, and nocturnal right sided chest pain with GERD. Bilateral Leg Pain: - Severe bilateral leg pain after 12-hour shifts, especially towards the end of the shift. - Pain described as a sensation of swelling, though no visible edema seen. - Noted mild swelling in feet prior to using compression socks. - Varicose vein present on the right lateral thigh. - Pain radiates to the lower back at times. - Wears barefoot-style shoes at work. - Takes ibuprofen PRN, approximately every other day. Left Arm Numbness: - Numbness in the left arm when lying on it or placing it under a pillow. - Symptoms present for several months, occurring daily with pressure. - No decreased accordion maker strength or difficulty with fine motor tasks. Normal sensation ROM and strength is present in LUE. Nocturnal Chest Pain: - Intermittent sharp chest pain on the right side, radiating to the back, occurring during sleep. - Pain described as severe, causing immobility until it subsides. - Recent episode alleviated by movement. - History of acid reflux; took Tums once with minimal relief. - Nocturnal pain occasionally associated with eating before bed. Nausea and Vomiting: - History of recurrent vomiting episodes over the past year, reports previously lasting for months at a time. - Currently not experiencing vomiting; uncertain if episodes will recur. - Reports discussed vomiting with Dr. Mcclain previously. Lifestyle: - Works full-time night shifts, 12-hour shifts QOD with breaks in between. - Attempts to maintain a regular day-night schedule on days off. - Sleeps 2-3 hours during the day after night shifts, then tries to sleep at night. - Diet and hydration reportedly disrupted by work schedule; attempts to drink fluids during shifts. Without reported shortness of breath on exertion palpitations edema presyncope syncope. Last 3 Encounter BP Readings: Date: BP: 10/15/2024 112/80 10/08/2024 120/80 08/25/2024 120/80 ROS Constitutional: (+) fatigue, (+) sleep disturbance, (+) weight gain Cardiovascular: (+) left-sided chest pain, (-) leg swelling Gastrointestinal: (-) heartburn, (-) nausea, (-) vomiting, (-) abdominal pain Musculoskeletal: (+) bilateral leg pain, (+) back pain Neurological: (+) left arm numbness, (-) weakness Objective BP 106/74 (BP Site: Left Arm, BP Position: Sitting, BP Cuff Size: Regular Adult) Pulse 82 Resp 16 Wt 75 kg (165 lb 5.5 oz) LMP 11/22/2016 (LMP Unknown) BMI 33.40 kg/m? Physical Exam Vitals and nursing note reviewed. Constitutional: Appearance: Normal appearance. HENT: Head: Normocephalic and atraumatic. Eyes: Conjunctiva/sclera: Conjunctivae normal. Cardiovascular: Rate and Rhythm: Normal rate and regular rhythm. Heart sounds: Normal heart sounds. Pulmonary: Effort: Pulmonary effort is normal. Abdominal: General: Bowel sounds are normal. Palpations: Abdomen is soft. Musculoskeletal: Right shoulder: No tenderness. Normal range of motion. Normal strength. Normal pulse. Left shoulder: No tenderness. Normal range of motion. Normal strength. Normal pulse. Right lower leg: No swelling. No edema. Left lower leg: No swelling. No edema. Skin: General: Skin is warm and dry. Neurological: General: No focal deficit present. Mental Status: She is alert and oriented to person, place, and time. 1. Gastroesophageal reflux disease, unspecified whether esophagitis present (K21.9) - Symptoms include nocturnal chest pain radiating to the back, with recent episodes causing severe discomfort. - Previous ER visit in February at [facility] with normal EKG and imaging. - Advised dietary modifications: small, frequent meals, avoid eating 3-4 hours before bedtime, and elevate the head of the bed. - Recommended avoidance of caffeine and alcohol. - Initiated Prilosec daily. - If symptoms persist or frequent vomiting resumes, referral to gastroenterology for further evaluation, including possible EGD. 2. Impingement of left shoulder (M25.812) HPI consistent with impingement - Numbness in the left arm when lying on it no decreased range of motion or accordion maker strength. - Provided home exercises for shoulder impingement. - Consider physical therapy or medication if no improvement. 3. Pain in both lower extremities (M79.604) - Pain occurs after prolon (more content not included)... [facility] 10-15-2024 Note HNO ID: [id number] Author: LIN LÓPEZ MD Service: ? Author Type: Physician Type: Progress Notes Filed: 10/15/2024 14:06 Note Text: Florencia presents for removal of IUD due to expiration of IUD. UNIVERSAL PROTOCOL / SAFETY CHECKLIST Procedure to be Performed: IUD removal Sign In: A Moment of CARE was completed. Appropriate PPE (Personal Protective Equipment) worn by all providers involved with the procedure. Special equipment not required. Patient/Surrogate Stated/Verified: Patient name, Date of , Relevant allergies, and The intended procedure Time Out: Relevant labs, photos, and/or imaging studies have been reviewed. Intended patient and procedure match the source document(s) (e.g. consent, HANDP, associated studies [imaging, pathology]) match the intended patient and procedure. Consent obtained and matches the intended procedure. Yes. Correct side/site is not applicable. Medications required for this procedure are not applicable. Fire risk assessed and is not applicable. Implants: Correct implant(s) confirmed including size and side. Expiration date(s) reviewed. Sign Out: Specimens not collected. All instruments, equipment, possible retained foreign bodies are accounted for. Yes. The post-procedure plan of care has been communicated to the patient or surrogate. PROCEDURE: Speculum placed in vagina, IUD string visualized and grasped with ring forceps. ASSESSMENT/PLAN: IUD removed without difficulty, intact, and patient tolerated procedure well. Contraception plans: Mirena IUD Lin López MD Florencia presents today for IUD insertion for contraception. Patient's last menstrual period was 11/22/2016 (lmp unknown). GC/chlamydia: Not done: no risk factors and/or patient declines screening test: n/a Side effects including irregular bleeding were discussed with the patient. The patient understands that it should be removed in 8 years or sooner if the patient desires a . IUD source: office provided IUD lot #: [id number] Exp date: 11/20/2026 The cervix was prepped with betadine. The uterus sounded to 7 cm and the uterus is Retroverted.. Using sterile technique, the Mirena IUD was inserted without difficulty and the string was cut to 3 cm from the external os of the cervix. Patient tolerated procedure well. PLAN: Patient was advised to observe for signs and symptoms of infection including but not limited to fever, malodorous vaginal discharge and/or pain. The patient was told to check the string monthly for accurate placement. Bleeding expectations were reviewed. Follow up for next annual exam or sooner as needed. Lin López MD [facility] 10-13-2024 Telephone encounter Note Last OV 10/08/2024. Requested Prescriptions Pending Prescriptions Disp Refills valACYclovir (VALTREX) 1 gram tablet 5 tablet 1 Sig: Take 1 tablet by mouth once daily. Start at beginning of outbreak. Geneva Cole RN [facility] 10-13-2024 Miscellaneous Notes Last OV 10/08/2024. Requested Prescriptions Pending Prescriptions Disp Refills valACYclovir (VALTREX) 1 gram tablet 5 tablet 1 Sig: Take 1 tablet by mouth once daily. Start at beginning of outbreak. Geneva Cole RN documented in this encounter [facility] 10-08-2024 Note HNO ID: [id number] Author: BETO VARGAS MD Service: ? Author Type: Physician Type: Progress Notes Filed: 10/08/2024 16:06 Note Text: Palliative Senior Np offered: Patient declines. Florencia is a 34 year old who presents with vaginal irritation and dysuria. Also she thinks her IUD needs removed. 3 days of pain and swelling of the labia. Painful to sit. Most painful when pushing to pee. Denies fevers or chills, hematuria, vaginal bleeding. History of HSV2. Took ibuprofen with no improvement. Denies use of creams/ointments. Reports occasional dyspareunia, no bleeding with sex. Denies itching and burning, denies abnormal discharge, reports vaginal odor from recurrent BV. Declines STD screening. Denies new fragrances, detergents, soaps. Using Dove sensitive skin for body wash. Age at Menarche: 15 Still get period: No LMP: n/a iud Time with current partner: 8 years control frequency: Always HPV vaccine: Yes, one injection, had a reaction HPV:negative Last pap smear: 08/22/2023 History of abnormal pap: Hx of ASCUS in 2020, LEEP 2019 Bothersome pelvic pain: No Last mammogram: 2023normal OB History Gravida2 Para1 Term1 Preterm0 AB1 Living1 SAB1 IAB0 Ectopic0 Multiple0 Live Births1 FAMILY HISTORY Problem Relation Age of Onset Cancer Mother Anxiety disorder Mother Bipolar disorder Father Cancer Paternal Grandfather Breast Cancer Paternal Grandmother Thyroid Maternal Aunt Breast Cancer Maternal Aunt SOCIAL HISTORY Social History Tobacco Use Smoking status: Former Types: Cigarettes Smokeless tobacco: Never Vaping Use Vaping status: Never Used Substance Use Topics Alcohol use: Yes Comment: occasionally Drug use: No REVIEW OF SYSTEMS Abdomen: No abdominal pain, nausea, vomiting, diarrhea, or constipation. No bloating, early satiety, indigestion. Reports gas. Reports fecal urgency without diarrhea. Bladder: No dysuria, gross hematuria, urinary frequency, or incontinence. Reports mild urgency. Breast: No nipple d/c, overlying skin changes, redness or skin retraction. Reports breast lumps monitored with mammogram. Allergies and current medication updated:Yes SENSITIVE EXAM: The sensitive examination was discussed with the Patient or Patient's Authorized Manager Internet. As applicable, any other physician, advance practice provider, medical student, or other health professional student that will be observing or involved in the sensitive examination for educational or training purposes was discussed with the Patient or Authorized Manager Internet. The Patient or Authorized Manager Internet has agreed to proceed with the sensitive examination. (Sensitive examination includes inspection and/or palpation of the breasts, pelvis, prostate and anorectal regions). EXAM: BP 120/80 Ht 4' 11 (1.50m) Wt 163 lb 12.8 oz (74.3kg) LMP 11/22/2016 BMI 33.07 kg/(m2). GENERAL: pleasant, female in no apparent distress PELVIC: external genitalia normal, normal Bartholin's glands, urethra, [place]'s glands, no vulvar lesions, no cervical lesions, good vaginal support, white discharge present, normal appearing perineal body and perianal region ASSESSMENT AND PLAN: Assessment AND Plan Dysuria Orders: UA DIP, URINE (POC) BACTERIAL VAGINOSIS NAAT LIAS/TRICHOMONAS NAAT BACTERIAL CULTURE, URINE Encounter for IUD removal and reinsertion Orders: INSERT INTRAUTERINE DEVICE REMOVE INTRAUTERINE DEVICE Vaginal irritation Vaginal infection testing Cervical cancer screening H/o LEEP Orders: PAP TEST Medical Decision Making: Problems: Low: Acute, uncomplicated illness or injury Data: Unique test(s) ordered: 3+ Risk: Moderate: Drug management Medical Decision Making Level: 4 - Moderate MD Beto Roland MD [facility] 10-08-2024 History of Present illness Narrative Palliative Senior Np offered: Patient declines. Florencia is a 34 year old who presents with vaginal irritation and dysuria. Also she thinks her IUD needs removed. 3 days of pain and swelling of the labia. Painful to sit. Most painful when pushing to pee. Denies fevers or chills, hematuria, vaginal bleeding. History of HSV2. Took ibuprofen with no improvement. Denies use of creams/ointments. Reports occasional dyspareunia, no bleeding with sex. Denies itching and burning, denies abnormal discharge, reports vaginal odor from recurrent BV. Declines STD screening. Denies new fragrances, detergents, soaps. Using Dove sensitive skin for body wash. Age at Menarche: 15 Still get period: No LMP: n/a iud Time with current partner: 8 years control frequency: Always HPV vaccine: Yes, one injection, had a reaction HPV:negative Last pap smear: 08/22/2023 History of abnormal pap: Hx of ASCUS in 2019, LEEP 2019 Bothersome pelvic pain: No Last mammogram: 2023normal OB History Gravida2 Para1 Term1 Preterm0 AB1 Living1 SAB1 IAB0 Ectopic0 Multiple0 Live Births1 FAMILY HISTORY Problem Relation Age of Onset Cancer Mother Anxiety disorder Mother Bipolar disorder Father Cancer Paternal Grandfather Breast Cancer Paternal Grandmother Thyroid Maternal Aunt Breast Cancer Maternal Aunt SOCIAL HISTORY Social History Tobacco Use Smoking status: Former Types: Cigarettes Smokeless tobacco: Never Vaping Use Vaping status: Never Used Substance Use Topics Alcohol use: Yes Comment: occasionally Drug use: No REVIEW OF SYSTEMS Abdomen: No abdominal pain, nausea, vomiting, diarrhea, or constipation. No bloating, early satiety, indigestion. Reports gas. Reports fecal urgency without diarrhea. Bladder: No dysuria, gross hematuria, urinary frequency, or incontinence. Reports mild urgency. Breast: No nipple d/c, overlying skin changes, redness or skin retraction. Reports breast lumps monitored with mammogram. Allergies and current medication updated:Yes SENSITIVE EXAM: The sensitive examination was discussed with the Patient or Patient's Authorized Manager Internet. As applicable, any other physician, advance practice provider, medical student, or other health professional student that will be observing or involved in the sensitive examination for educational or training purposes was discussed with the Patient or Authorized Manager Internet. The Patient or Authorized Manager Internet has agreed to proceed with the sensitive examination. (Sensitive examination includes inspection and/or palpation of the breasts, pelvis, prostate and anorectal regions). EXAM: BP 120/80 Ht 4' 11 (1.50m) Wt 163 lb 12.8 oz (74.3kg) LMP 11/22/2016 BMI 33.07 kg/(m^2). GENERAL: pleasant, female in no apparent distress PELVIC: external genitalia normal, normal Bartholin's glands, urethra, [place]'s glands, no vulvar lesions, no cervical lesions, good vaginal support, white discharge present, normal appearing perineal body and perianal region ASSESSMENT AND PLAN: Assessment & Plan Dysuria Orders: UA DIP, URINE (POC) BACTERIAL VAGINOSIS NAAT LISA/TRICHOMONAS NAAT BACTERIAL CULTURE, URINE Encounter for IUD removal and reinsertion Orders: INSERT INTRAUTERINE DEVICE REMOVE INTRAUTERINE DEVICE Vaginal irritation Vaginal infection testing Cervical cancer screening H/o LEEP Orders: PAP TEST Medical Decision Making: Problems: Low: Acute, uncomplicated illness or injury Data: Unique test(s) ordered: 3+ Risk: Moderate: Drug management Medical Decision Making Level: 4 - Moderate MD Beto Roland MD documented in this encounter [facility] 08-25-2024 Telephone encounter Note Patient active MyChart. Patient notified via Bioxodes message. Felicity Hamilton MA [facility] 08-25-2024 Miscellaneous Notes Patient active MyChart. Patient notified via Bioxodes message. Felicity Hamilton MA Please let patient know that her CXR was negative for pneumonia. Supportive care with fluids, rest, bland/BRAT diet as discussed. F/u in 24-48 hours if not improving, sooner If worsening. Rina Espinal PA-C 08/25/2024 documented in this encounter [facility] 08-25-2024 Telephone encounter Note Please let patient know that her CXR was negative for pneumonia. Supportive care with fluids, rest, bland/BRAT diet as discussed. F/u in 24-48 hours if not improving, sooner If worsening. Rina Espinal PA-C 08/25/2024 [facility] Work Phone: 08-25-2024 History of Present illness Narrative Radiology Service Progress Note PATIENT NAME: Florencia Sena DATE OF SERVICE: August 25, 2024 TIME: 10:10 AM PATIENT IDENTITY VERIFICATION COMPLETED USING TWO (2) IDENTIFIERS: Name and Date of confirmed by patient verbally. FALL SCREENING: Has the patient had 2 falls in the last year or 1 fall with injury or currently using an Ambulatory Assistive Device (Walker, Cane, Wheelchair, Crutches, etc.)? No PATIENT GENDER DATA: Assigned female at . status: : No status: NO. PATIENT RELEVANT IMPLANT DATA REVIEWED: Yes PATIENT PRESENTS WITH AN IMPLANTABLE OR ATTACHED BIN WORKER: No RADIOLOGY DEPARTMENT: General X-ray: Exam(s) Completed: Chest X-Ray PERIPHERAL IV DATA: Not applicable SIGNED BY: RT Jessee(R) August 25, 2024 10:10 AM documented in this encounter [facility] 08-25-2024 Note HNO ID: [id number] Author: SELVIN, TORITO, RT(R) Service: ? Author Type: Credit Relationship Manager Type: Progress Notes Filed: 08/25/2024 10:18 Note Text: Radiology Service Progress Note PATIENT NAME: Florencia Sena DATE OF SERVICE: August 25, 2024 TIME: 10:10 AM PATIENT IDENTITY VERIFICATION COMPLETED USING TWO (2) IDENTIFIERS: Name and Date of confirmed by patient verbally. FALL SCREENING: Has the patient had 2 falls in the last year or 1 fall with injury or currently using an Ambulatory Assistive Device (Walker, Cane, Wheelchair, Crutches, etc.)? No PATIENT GENDER DATA: Assigned female at . status: : No status: NO. PATIENT RELEVANT IMPLANT DATA REVIEWED: Yes PATIENT PRESENTS WITH AN IMPLANTABLE OR ATTACHED BIN WORKER: No RADIOLOGY DEPARTMENT: General X-ray: Exam(s) Completed: Chest X-Ray PERIPHERAL IV DATA: Not applicable SIGNED BY: RT Jessee(R) August 25, 2024 10:10 AM [facility] 08-25-2024 Note SARS-COV-2 (AGENT OF COVID-19) RNA: Not detected INFLUENZA A RNA: Not detected INFLUENZA B RNA: Not detected RESPIRATORY SYNCYTIAL VIRUS (RSV) RNA: Not detected [facility] Comment on above: Performed By: #### [id number] ####[facility] LABCLIA [id number] [address] OF [facility] 08-25-2024 Note HNO ID: [id number] Author: RINA ESPINAL PA-C Service: ? Author Type: Physician Beef Killer Type: Progress Notes Filed: 09/01/2024 08:19 Note Text: 08/25/2024 Patient presents with: URI: With intermittent diarrhea/vomiting x1 week SUBJECTIVE: This is a 34 year old that is here today for Complaint(s) of cough 1 week ago. Had a cough for 2 days. Then started with diarrhea, vomiting, fever/chills. She was seen in . Now having nasal congestion. Treated for possible flu with Tamilfu 75, never tested for influenza. Continues to have productive cough. Mild SOB, but also feels like her nasal congestion is contributing. Denies chest pain, wheezing. Last episode of vomiting this morning. Has had diarrhea/vomiting x 2 days, but intermittent. No blood in the stools, black or tarry. PAST MEDICAL HISTORY Diagnosis Date Adjustment reaction Asthma as a baby Hypoglycemia ALLERGIES Macrobid [Nitrofurantoin Monohyd/M-Cryst], Ciprofloxacin, and Lexapro [Escitalopram Oxalate] MEDICATIONS Current Outpatient Medications Medication Sig benzonatate (TESSALON PERLE) 100 mg capsule Take 1 capsule by mouth three times a day as needed for cough for up to 7 days. valACYclovir (VALTREX) 1 gram tablet Take 1 tablet by mouth once daily. Start at beginning of outbreak. No current facility-administered medications for this visit. SOCIAL HISTORY Social History Tobacco Use Smoking status: Former Types: Cigarettes Smokeless tobacco: Never Vaping Use Vaping status: Never Used Substance Use Topics Alcohol use: Yes Comment: occasionally Drug use: No REVIEW OF SYSTEMS See HPI OBJECTIVE: BP 120/80 Pulse 88 Temp 36.3 ?C (97.3 ?F) (Temporal) Resp 16 Wt 73.6 kg (162 lb 3.2 oz) LMP 11/22/2016 (LMP Unknown) SpO2 98% BMI 32.76 kg/m? APPEARANCE Well appearing, alert, in no acute distress, well-hydrated, well nourished. EYES PERRLA, conjunctiva and sclera normal. EARS External ears normal, canals clear NOSE/SINUS Nares normal. Septum midline. Mucosa normal. No drainage or sinus tenderness. THROAT normal, no erythema NECK Supple, no adenopathy; thyroid symmetric, normal size, no bruits HEART RRR with normal S1 and S2, no murmurs, no gallops, no JVD appreciated LUNG clear to auscultation ABDOMEN bowel sounds normoactive, no bruits, soft, non-tender, non-distended, without organomegaly or palpable masses, no tenderness to palpation ASSESSMENT/PLAN: 1. Acute cough - ICD9: 786.2, ICD10: R05.1 (primary diagnosis) Supportive care with fluids and rest Check CXR today. F/u in 4-5 days if not improving, sooner if worsening - XR CHEST 2V FRONTAL/LAT - COVID AND INFLUENZA A/B AND RSV PCR, ROUTINE 2. Nausea and vomiting, unspecified vomiting type - ICD9: 787.01, ICD10: R11.2 Holcomb/BRAT diet once tolerating liquids for 24 hours Reviewed red flags and when to seek care sooner. Good hydration - XR CHEST 2V FRONTAL/LAT - COVID AND INFLUENZA A/B AND RSV PCR, ROUTINE The patient indicates understanding of these issues and agrees with the plan. Reviewed red flags and when to seek care sooner. Rina Espinal PA-C [facility] 08-25-2024 History of Present illness Narrative 08/25/2024 Patient presents with: URI: With intermittent diarrhea/vomiting x1 week SUBJECTIVE: This is a 34 year old that is here today for Complaint(s) of cough 1 week ago. Had a cough for 2 days. Then started with diarrhea, vomiting, fever/chills. She was seen in [facility] . Now having nasal congestion. Treated for possible flu with Tamilfu 75, never tested for influenza. Continues to have productive cough. Mild SOB, but also feels like her nasal congestion is contributing. Denies chest pain, wheezing. Last episode of vomiting this morning. Has had diarrhea/vomiting x 2 days, but intermittent. No blood in the stools, black or tarry. PAST MEDICAL HISTORY Diagnosis Date Adjustment reaction Asthma as a baby Hypoglycemia ALLERGIES Macrobid [Nitrofurantoin Monohyd/M-Cryst], Ciprofloxacin, and Lexapro [Escitalopram Oxalate] MEDICATIONS Current Outpatient Medications Medication Sig benzonatate (TESSALON PERLE) 100 mg capsule Take 1 capsule by mouth three times a day as needed for cough for up to 7 days. valACYclovir (VALTREX) 1 gram tablet Take 1 tablet by mouth once daily. Start at beginning of outbreak. No current facility-administered medications for this visit. SOCIAL HISTORY Social History Tobacco Use Smoking status: Former Types: Cigarettes Smokeless tobacco: Never Vaping Use Vaping status: Never Used Substance Use Topics Alcohol use: Yes Comment: occasionally Drug use: No REVIEW OF SYSTEMS See HPI OBJECTIVE: BP 120/80 Pulse 88 Temp 36.3 C (97.3 F) (Temporal) Resp 16 Wt 73.6 kg (162 lb 3.2 oz) LMP 11/22/2016 (LMP Unknown) SpO2 98% BMI 32.76 kg/m APPEARANCE Well appearing, alert, in no acute distress, well-hydrated, well nourished. EYES PERRLA, conjunctiva and sclera normal. EARS External ears normal, canals clear NOSE/SINUS Nares normal. Septum midline. Mucosa normal. No drainage or sinus tenderness. THROAT normal, no erythema NECK Supple, no adenopathy; thyroid symmetric, normal size, no bruits HEART RRR with normal S1 and S2, no murmurs, no gallops, no JVD appreciated LUNG clear to auscultation ABDOMEN bowel sounds normoactive, no bruits, soft, non-tender, non-distended, without organomegaly or palpable masses, no tenderness to palpation ASSESSMENT/PLAN: 1. Acute cough - ICD9: 786.2, ICD10: R05.1 (primary diagnosis) Supportive care with fluids and rest Check CXR today. F/u in 4-5 days if not improving, sooner if worsening - XR CHEST 2V FRONTAL/LAT - COVID & INFLUENZA A/B & RSV PCR, ROUTINE 2. Nausea and vomiting, unspecified vomiting type - ICD9: 787.01, ICD10: R11.2 Holcomb/BRAT diet once tolerating liquids for 24 hours Reviewed red flags and when to seek care sooner. Good hydration - XR CHEST 2V FRONTAL/LAT - COVID & INFLUENZA A/B & RSV PCR, ROUTINE The patient indicates understanding of these issues and agrees with the plan. Reviewed red flags and when to seek care sooner. Rina Espinal PA-C documented in this encounter [facility] 08-19-2024 Note HNO ID: [id number] Author: CARL FINN PA-C Service: ? Author Type: Physician Beef Killer Type: Progress Notes Filed: 08/19/2024 09:44 Note Text: This note was created using AirKastriter. Subjective Florencia Sena is a 34 year old female. Patient is a 34-year-old female who complains of fever, chills, body aches, congestion and cough that she has developed over the past 1 day. Patient has no history of asthma or COPD and does not smoke. 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 Cough Associated symptoms include chills and myalgias. Review of Systems Constitutional: Positive for chills, fatigue and fever. Respiratory: Positive for cough. Musculoskeletal: Positive for myalgias. All other systems reviewed and are negative. Objective BP 118/82 Pulse 104 Temp 37.8 ?C (100.1 ?F) (Tympanic) Resp 18 Wt 74.3 kg (163 lb 12.8 oz) LMP 11/22/2016 (LMP Unknown) SpO2 100% BMI 33.08 kg/m? Physical Exam Vitals and nursing note reviewed. Constitutional: Appearance: Normal appearance. She is normal weight. HENT: Head: Normocephalic and atraumatic. Right Ear: Tympanic membrane, ear canal and external ear normal. Left Ear: Tympanic membrane, ear canal and external ear normal. Nose: Nose normal. Mouth/Throat: Mouth: Mucous membranes are moist. Pharynx: Oropharynx is clear. Eyes: Extraocular Movements: Extraocular movements intact. Conjunctiva/sclera: Conjunctivae normal. Pupils: Pupils are equal, round, and reactive to light. Cardiovascular: Rate and Rhythm: Normal rate and regular rhythm. Pulses: Normal pulses. Heart sounds: Normal heart sounds. Pulmonary: Effort: Pulmonary effort is normal. Breath sounds: Normal breath sounds. Musculoskeletal: Cervical back: Normal range of motion and neck supple. Skin: General: Skin is warm and dry. Capillary Refill: Capillary refill takes less than 2 seconds. Neurological: General: No focal deficit present. Mental Status: She is alert and oriented to person, place, and time. Psychiatric: Mood and Affect: Mood normal. Behavior: Behavior normal. Thought Content: Thought content normal. Judgment: Judgment normal. Assessment and Plan Physical exam findings as noted above. Patient was provided with prescriptions for Tamiflu 75 mg and Tessalon 100 mg. Supportive care was discussed and the patient verbalizes excellent understanding of same. CLINICAL IMPRESSION: Influenza ASSESSMENT/PLAN: 1. Influenza - ICD9: 487.1, ICD10: J11.1 - BENZONATATE 100 MG CAPSULE - OSELTAMIVIR 75 MG CAPSULE Carl Finn PA-C [facility] 08-19-2024 History of Present illness Narrative This note was created using AirKastriter. Subjective Florencia Sena is a 34 year old female. Patient is a 34-year-old female who complains of fever, chills, body aches, congestion and cough that she has developed over the past 1 day. Patient has no history of asthma or COPD and does not smoke. 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 Cough Associated symptoms include chills and myalgias. Review of Systems Constitutional: Positive for chills, fatigue and fever. Respiratory: Positive for cough. Musculoskeletal: Positive for myalgias. All other systems reviewed and are negative. Objective BP 118/82 Pulse 104 Temp 37.8 C (100.1 F) (Tympanic) Resp 18 Wt 74.3 kg (163 lb 12.8 oz) LMP 11/22/2016 (LMP Unknown) SpO2 100% BMI 33.08 kg/m Physical Exam Vitals and nursing note reviewed. Constitutional: Appearance: Normal appearance. She is normal weight. HENT: Head: Normocephalic and atraumatic. Right Ear: Tympanic membrane, ear canal and external ear normal. Left Ear: Tympanic membrane, ear canal and external ear normal. Nose: Nose normal. Mouth/Throat: Mouth: Mucous membranes are moist. Pharynx: Oropharynx is clear. Eyes: Extraocular Movements: Extraocular movements intact. Conjunctiva/sclera: Conjunctivae normal. Pupils: Pupils are equal, round, and reactive to light. Cardiovascular: Rate and Rhythm: Normal rate and regular rhythm. Pulses: Normal pulses. Heart sounds: Normal heart sounds. Pulmonary: Effort: Pulmonary effort is normal. Breath sounds: Normal breath sounds. Musculoskeletal: Cervical back: Normal range of motion and neck supple. Skin: General: Skin is warm and dry. Capillary Refill: Capillary refill takes less than 2 seconds. Neurological: General: No focal deficit present. Mental Status: She is alert and oriented to person, place, and time. Psychiatric: Mood and Affect: Mood normal. Behavior: Behavior normal. Thought Content: Thought content normal. Judgment: Judgment normal. Assessment and Plan Physical exam findings as noted above. Patient was provided with prescriptions for Tamiflu 75 mg and Tessalon 100 mg. Supportive care was discussed and the patient verbalizes excellent understanding of same. CLINICAL IMPRESSION: Influenza ASSESSMENT/PLAN: 1. Influenza - ICD9: 487.1, ICD10: J11.1 - BENZONATATE 100 MG CAPSULE - OSELTAMIVIR 75 MG CAPSULE Carl Finn PA-C documented in this encounter [facility] 06-22-2024 Telephone encounter Note Last OV 08/22/23. Requested Prescriptions Pending Prescriptions Disp Refills valACYclovir (VALTREX) 1 gram tablet 5 tablet 1 Sig: Take 1 tablet by mouth once daily. Start at beginning of outbreak. Geneva Cole RN [facility] 06-22-2024 Miscellaneous Notes Last OV 08/22/23. Requested Prescriptions Pending Prescriptions Disp Refills valACYclovir (VALTREX) 1 gram tablet 5 tablet 1 Sig: Take 1 tablet by mouth once daily. Start at beginning of outbreak. Geneva Cole RN documented in this encounter [facility] 03-12-2024 Telephone encounter Note Patient call in for chest pain and pressure that has been going off and on x 1 week. Nurse Triage assessment completed with protocol recommending for disposition of Go to ED now. Care advice reviewed with patient, patient stated understanding. Reason for Disposition [1] Chest pain lasts > 5 minutes AND [2] occurred in past 3 days (72 hours) (Exception: Feels exactly the same as previously diagnosed heartburn and has accompanying sour taste in mouth.) Answer Assessment - Initial Assessment Questions 1. LOCATION: Right side of chest last week; weird tightness off and on Today felt like she had pulling in chest and chest tightness 2. RADIATION: Last week it went to whole right side. 3. ONSET: Had episode last week on right side 4. PATTERN: Comes and goes. 5. DURATION: Not too long 6. SEVERITY: Rates Pain 4 out of 10 now; last week 10 out of 10 7. CARDIAC RISK FACTORS: Denies 8. PULMONARY RISK FACTORS: Denies 9. CAUSE: Unsure. 10. OTHER SYMPTOMS: nausea Protocols used: Chest [id number] [facility] 03-12-2024 Miscellaneous Notes Patient call in for chest pain and pressure that has been going off and on x 1 week. Nurse Triage assessment completed with protocol recommending for disposition of Go to ED now. Care advice reviewed with patient, patient stated understanding. Reason for Disposition [1] Chest pain lasts > 5 minutes AND [2] occurred in past 3 days (72 hours) (Exception: Feels exactly the same as previously diagnosed heartburn and has accompanying sour taste in mouth.) Answer Assessment - Initial Assessment Questions 1. LOCATION: Right side of chest last week; weird tightness off and on Today felt like she had pulling in chest and chest tightness 2. RADIATION: Last week it went to whole right side. 3. ONSET: Had episode last week on right side 4. PATTERN: Comes and goes. 5. DURATION: Not too long 6. SEVERITY: Rates Pain 4 out of 10 now; last week 10 out of 10 7. CARDIAC RISK FACTORS: Denies 8. PULMONARY RISK FACTORS: Denies 9. CAUSE: Unsure. 10. OTHER SYMPTOMS: nausea Protocols used: Chest [id number] documented in this encounter [facility] 02-04-2024 History of Present illness Narrative This note was created using [employer]. Subjective Florencia Sena is a 33 year old female. HPI Pt complains of pain in her left ear that started last night. She is worried about a possible ear infection as they are leaving on a trip tomorrow. Review of Systems Constitutional: Positive for fever. Negative for fatigue. HENT: Positive for congestion and ear pain. Respiratory: Negative for cough. Gastrointestinal: Positive for nausea and vomiting. Objective BP 118/77 Pulse 71 Temp 36.3 C (97.4 F) Resp 18 Wt 71.9 kg (158 lb 8.2 oz) LMP 11/22/2016 (LMP Unknown) SpO2 99% BMI 32.02 kg/m Physical Exam Vitals and nursing note reviewed. Constitutional: General: She is not in acute distress. Appearance: Normal appearance. She is not ill-appearing. HENT: Head: Normocephalic. Right Ear: Tympanic membrane and ear canal normal. Left Ear: Tympanic membrane and ear canal normal. Mouth/Throat: Mouth: Mucous membranes are moist. Eyes: Conjunctiva/sclera: Conjunctivae normal. Cardiovascular: Rate and Rhythm: Normal rate and regular rhythm. Pulmonary: Effort: Pulmonary effort is normal. Breath sounds: Normal breath sounds. Musculoskeletal: General: Normal range of motion. Cervical back: Normal range of motion. Skin: General: Skin is warm and dry. Neurological: General: No focal deficit present. Mental Status: She is alert. Psychiatric: Mood and Affect: Mood normal. Behavior: Behavior normal. Assessment and Plan ASSESSMENT/PLAN: 1. Left ear pain - ICD9: 388.70, ICD10: H92.02 Patient's exam benign with no signs of otitis media or externa. Patient prescribed Zyrtec and prednisone and will use her home Flonase. I do suspect her symptoms are more consistent with some sort of eustachian tube dysfunction. - CETIRIZINE 10 MG TABLET - PREDNISONE 50 MG TABLET Meliton Bahena APRN.ASSEMBLER TUBING documented in this encounter [facility] 01-09-2024 Note IMPRESSION: INCOMPLE TE: NEED ADDITIONAL IMAGING EVALUATION The stable oval mass in the right breast is indeterminate. An ultrasound is recommended. LIMITED ULTRASOUND OF RIGHT BREAST: 01/09/2024 RESULT: Comparison is made to exams dated: 07/31/2022 ultrasound, 11/28/2021 ultrasound, 03/05/2023 mammogram, and 03/05/2023 ultrasound - [facility]. Color flow and real-time ultrasound of the right breast 4 o'clock region were performed. Jensen scale images of the real-time examination were reviewed. There is a stable benign 1 cm x 0.5 cm x 1 cm oval mass with a circumscribed margin in the right breast at 4 o'clock middle depth 5 cm from the nipple. This oval mass is hypoechoic and septated. This correlates with mammography findings. Color flow imaging demonstrates that there is no vascularity present. IMPRESSION: BENIGN There is no sonographic evidence of malignancy. 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 Mammographically, this mass is stable since February 2023. Sonographically, the mass is stable since November 2021. Given two years of stability, the mass may be considered benign. This was discussed with the patient at the time of exam, who was agreeable with this plan. It was also discussed, however, given family history of breast cancer, additional screening modalities such as breast MRI may be warranted; evaluation in high risk breast clinic was suggested, as such. Return to annual mammogram screening schedule is recommended. SUMMARY: Results and recommendations were discussed with the patient at time of examination. Estefanía guaman/bronwyn:01/09/2024 16:35:56 Multiple national specialty organizations have released breast cancer screening guidelines for women at average risk for developing breast cancer - guidelines that are based on both evidence and opinion, yet differ on when to start and how often to screen for breast cancer. With representation from Breast Imaging, Internal Medicine, Women's Health, Family Medicine, and Medical/Surgical Oncology, the [facility] has carefully reviewed the data and reached the following consensus: 1) All women should engage in shared decision-making with their providers to decide when to start and how often to screen; 2) All women should have the opportunity to start screening mammography at age 40; 3) For women ages 45-55, we recommend annual screening mammograms; 4) For women ages 55 and over, we support both the transition from an annual to a biennial interval if this aligns more with patient's values and preferences, or continuation with annual screening; 5) All women should discuss with their providers when to stop screening mammograms. Optical Instrument Assembler(s): Alfa Zuleta R.D.M.S., [employer]; RT Lynda(R)(M), [facility] OVERALL STUDY BIRADS: BENIGN Cnc Operator Machinist: Bronwyn Transcribe Date/Time: Jan 09 2024 12:36P Dictated by : ESTEFANÍA PEACOCK MD This examination was interpreted and the report reviewed and electronically signed by: ESTEFANÍA PEACOCK MD on Jan 09 2024 4:35PM EST [facility] 01-09-2024 Note IMPRESSION: INCOMPLE TE: NEED ADDITIONAL IMAGING EVALUATION The stable oval mass in the right breast is indeterminate. An ultrasound is recommended. LIMITED ULTRASOUND OF RIGHT BREAST: 01/09/2024 RESULT: Comparison is made to exams dated: 07/31/2022 ultrasound, 11/28/2021 ultrasound, 03/05/2023 mammogram, and 03/05/2023 ultrasound - [facility]. Color flow and real-time ultrasound of the right breast 4 o'clock region were performed. Jensen scale images of the real-time examination were reviewed. There is a stable benign 1 cm x 0.5 cm x 1 cm oval mass with a circumscribed margin in the right breast at 4 o'clock middle depth 5 cm from the nipple. This oval mass is hypoechoic and septated. This correlates with mammography findings. Color flow imaging demonstrates that there is no vascularity present. IMPRESSION: BENIGN There is no sonographic evidence of malignancy. 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 Mammographically, this mass is stable since February 2023. Sonographically, the mass is stable since November 2021. Given two years of stability, the mass may be considered benign. This was discussed with the patient at the time of exam, who was agreeable with this plan. It was also discussed, however, given family history of breast cancer, additional screening modalities such as breast MRI may be warranted; evaluation in high risk breast clinic was suggested, as such. Return to annual mammogram screening schedule is recommended. SUMMARY: Results and recommendations were discussed with the patient at time of examination. Estefanía guaman/bronwyn:01/09/2024 16:35:56 Multiple national specialty organizations have released breast cancer screening guidelines for women at average risk for developing breast cancer - guidelines that are based on both evidence and opinion, yet differ on when to start and how often to screen for breast cancer. With representation from Breast Imaging, Internal Medicine, Women's Health, Family Medicine, and Medical/Surgical Oncology, the [facility] has carefully reviewed the data and reached the following consensus: 1) All women should engage in shared decision-making with their providers to decide when to start and how often to screen; 2) All women should have the opportunity to start screening mammography at age 40; 3) For women ages 45-55, we recommend annual screening mammograms; 4) For women ages 55 and over, we support both the transition from an annual to a biennial interval if this aligns more with patient's values and preferences, or continuation with annual screening; 5) All women should discuss with their providers when to stop screening mammograms. Optical Instrument Assembler(s): Alfa Zuleta R.D.M.S., [facility]; CHAYA Howell)(Zachariah), [facility] OVERALL STUDY BIRADS: BENIGN Cnc Operator Machinist: Bronwyn Mckeonrimarina Date/Time: Jan 09 2024 12:36P Dictated by : ESTEFANÍA PEACOCK MD This examination was interpreted and the report reviewed and electronically signed by: ESTEFANÍA PEACOCK MD on Jan 09 2024 4:35PM [facility] ([facility]3] RADIOLOGY [facility] 01-09-2024 History of Present illness Narrative Radiology Service Progress Note PATIENT NAME: Florencia Sena DATE OF SERVICE: January 09, 2024 TIME: 12:59 PM PATIENT IDENTITY VERIFICATION COMPLETED USING TWO (2) IDENTIFIERS: Name and Date of confirmed by patient verbally. FALL SCREENING: Has the patient had 2 falls in the last year or 1 fall with injury or currently using an Ambulatory Assistive Device (Walker, Cane, Wheelchair, Crutches, etc.)? No PATIENT GENDER DATA: Female. status: : No status: NO. PATIENT RELEVANT IMPLANT DATA REVIEWED: Not Applicable PATIENT PRESENTS WITH AN IMPLANTABLE OR ATTACHED BIN WORKER: No RADIOLOGY DEPARTMENT: Biopsy PERIPHERAL IV DATA: Not applicable SIGNED BY: RT Elysia(Beni) January 09, 2024 12:59 PM documented in this encounter [facility] 01-09-2024 Note HNO ID: [id number] Author: ALFA RAMIREZ RT(R) Service: ? Author Type: Technologist Type: Progress Notes Filed: 01/09/2024 12:59 Note Text: Radiology Service Progress Note PATIENT NAME: Florencia Sena DATE OF SERVICE: January 09, 2024 TIME: 12:59 PM PATIENT IDENTITY VERIFICATION COMPLETED USING TWO (2) IDENTIFIERS: Name and Date of confirmed by patient verbally. FALL SCREENING: Has the patient had 2 falls in the last year or 1 fall with injury or currently using an Ambulatory Assistive Device (Walker, Cane, Wheelchair, Crutches, etc.)? No PATIENT GENDER DATA: Female. status: : No status: NO. PATIENT RELEVANT IMPLANT DATA REVIEWED: Not Applicable PATIENT PRESENTS WITH AN IMPLANTABLE OR ATTACHED BIN WORKER: No RADIOLOGY DEPARTMENT: Biopsy PERIPHERAL IV DATA: Not applicable SIGNED BY: RT Elysia(R) January 09, 2024 12:59 PM [facility] 01-09-2024 History of Present illness Narrative Radiology Service Progress Note PATIENT NAME: Florencia Sena DATE OF SERVICE: January 09, 2024 TIME: 12:34 PM PATIENT IDENTITY VERIFICATION COMPLETED USING TWO (2) IDENTIFIERS: Name and Date of confirmed by patient verbally. FALL SCREENING: Has the patient had 2 falls in the last year or 1 fall with injury or currently using an Ambulatory Assistive Device (Walker, Cane, Wheelchair, Crutches, etc.)? No PATIENT GENDER DATA: Female. status: : No status: NO. PATIENT RELEVANT IMPLANT DATA REVIEWED: Not Applicable PATIENT PRESENTS WITH AN IMPLANTABLE OR ATTACHED BIN WORKER: No RADIOLOGY DEPARTMENT: Mammography PERIPHERAL IV DATA: Not applicable SIGNED BY: RT Lynda(R) January 09, 2024 12:34 PM documented in this encounter [facility] 01-09-2024 Note HNO ID: [id number] Author: MELISSA TOWNSEND RT(Beni) Service: ? Author Type: Technologist Type: Progress Notes Filed: 01/09/2024 12:49 Note Text: Radiology Service Progress Note PATIENT NAME: Florencia Sena DATE OF SERVICE: January 09, 2024 TIME: 12:34 PM PATIENT IDENTITY VERIFICATION COMPLETED USING TWO (2) IDENTIFIERS: Name and Date of confirmed by patient verbally. FALL SCREENING: Has the patient had 2 falls in the last year or 1 fall with injury or currently using an Ambulatory Assistive Device (Walker, Cane, Wheelchair, Crutches, etc.)? No PATIENT GENDER DATA: Female. status: : No status: NO. PATIENT RELEVANT IMPLANT DATA REVIEWED: Not Applicable PATIENT PRESENTS WITH AN IMPLANTABLE OR ATTACHED BIN WORKER: No RADIOLOGY DEPARTMENT: Mammography PERIPHERAL IV DATA: Not applicable SIGNED BY: CHAYA Howell) January 09, 2024 12:34 PM [facility] 12-24-2023 History of Present illness Narrative Patient presents with: Follow Up HPI: Patient presents today for office visit for overall wellness. Here to reestablish care. No concerns today. Last seen by me in office 07/24/19. Last seen in our department by Rina Espinal on 10/22/23 for lower back pain. See note: SUBJECTIVE: This is a 33 year old that is here today for Complaint(s) of lower back marquez x 2 months, overall worsening. Pain and stiffness with standing or certain movements. 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 Tells me it is difficult to always lift properly secondary to her short stature. Sleeping with pillow between her legs. No prior history of trauma or injury. Denies numbness/tingling, bowel or bladder incontinence, saddles anesthesia, pain is not waking at night, unplanned weight changes. Has tried ibuprofen and baths, ice/warm compresses. Also mentions continued popping in her right ear. She was treated for an ear infection 1-2 months ago. Pain resolved and hearing returned to normal. Denies tinnitus, dizziness, nasal cognestion. Hx of anxiety and depression. Was on buspar in the past. Not currently taking any medications. Refers to she has learned to cope with it. Is doing physical therapy for her back. Needs to reschedule it. Was having vomiting frequently for months. Now is better. Does have some loose stools for a few days. Red flags for re-assessment reviewed with patient in detail. No abd pain. No bloody or black stools. Has done counseling. Did not tolerate ssris. Was on welbutrin. Has tried vistaril. Red flags for re-assessment reviewed with patient in detail. Offered psychology and or psychiatry referrals. MEDICATIONS: Current Outpatient Medications Medication Sig valACYclovir (VALTREX) 1 gram tablet TAKE 1 TABLET BY MOUTH ONCE DAILY. START AT BEGINNING OF OUTBREAK. No current facility-administered medications for this visit. ALLERGIES: ALLERGIES Allergen Reactions Macrobid [Nitrofura* Rash Ciprofloxacin Rash Lexapro [Escitalopr* Intolerance dilates pupils, muscle spasms, sleeping issues(afraid to go to sleep) PAST MEDICAL HISTORY Diagnosis Date Adjustment reaction Asthma as a baby Hypoglycemia PAST SURGICAL HISTORY Procedure Laterality Date DELIVERY ONLY 12/11/14 , low transverse DILATION & CURETTAGE DX&/THER NONOBSTETRIC 09/03 Dilation & curettage INSERTION OF IUD LEEP PROCEDURE ([employer]ENCE [employer]OR DEPT)_*FL VAGINOSCOPY 07/16/2016 FAMILY HISTORY Problem Relation Age of Onset Cancer Mother Anxiety disorder Mother Bipolar disorder Father Cancer Paternal Grandfather Breast Cancer Paternal Grandmother Thyroid Maternal Aunt Breast Cancer Maternal Aunt Social History Tobacco Use Smoking status: Former Types: Cigarettes Smokeless tobacco: Never Vaping Use Vaping Use: Never used Substance Use Topics Alcohol use: Yes Comment: occasionally Drug use: No Reviewed current medications, allergies, past medical history, surgical history, family history and social history today. REVIEW OF SYSTEMS HEENT: No changes in hearing or vision, no nose bleeds or other nasal problems, does get chronic migraine headaches. 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 HEALTH MAINTENANCE: Reviewed health maintenance issues today and recommended the following in detail. HPV Vaccine(2 - 3-dose SCDM series) due on 12/21/2021 Covid-19 Vaccine( season) Never done Behavioral Health Screening Never done VITALS: BP 110/90 Pulse 79 Ht 149.9 cm (4' 11) Wt 74.4 kg (164 lb) LMP 11/22/2016 (LMP Unknown) SpO2 99% BMI 33.12 kg/m Last 4 Encounter Wt Readings: Date: Wt: 10/22/2023 74.8 kg (165 lb) 08/22/2023 72.6 kg (160 lb) 06/09/2023 72.1 kg (159 lb) 06/06/2023 72.8 kg (160 lb 6.4 oz) PHYSICAL EXAMINATION: General appearance: Well appearing, alert, in no acute distress, well-hydrated, well nourished. Skin: Skin color, texture, turgor normal, no suspicious rashes or lesions Head: Normocephalic, no masses, lesions, tenderness or abnormalities Eyes: Anicteric sclera. Pupils are equally round and reactive to light. Extraocular movements are intact. Ears: External ears normal, canals clear Nose/Sinuses: Nares normal, septum midline, mucosa normal, no drainage or sinus tenderness Oropharynx: Lips, mucosa, and tongue normal, teeth and gums normal, oropharynx normal Neck: Supple, no adenopathy; thyroid symmetric, normal size, no bruits Lungs: Lungs clear to auscultation. No wheezing, rhonchi, rales Heart: RRR without murmur, gallop, or rubs. No ectopy Abdomen: Normal abdominal exam, Abdomen soft, non-tender. Bowel sounds normal. No masses, organomegaly Extremities: No deformities, edema, skin discoloration, clubbing or cyanosis. Good capillary refill. Musculoskeletal: No joint swelling, deformity, or tenderness Peripheral pulses: Normal Neuro: Gait normal. Reflexes normal and symmetric. Sensation grossly intact. ASSESSMENT/PLAN: 1. Well adult exam - ICD9: V70.0, ICD10: Z00.00 (primary diagnosis) - LIPID PANEL BASIC 2. Anxiety - ICD9: 300.00, ICD10: F41.9 - consider psychology or psychiatry. - COMPLETE BLOOD COUNT AND DIFFERENTIAL - COMPREHENSIVE METABOLIC PANEL - THYROID STIMULATING HORMONE 3. Screening for lipid disorders - ICD9: V77.91, ICD10: Z13.220 - LIPID PANEL BASIC Richard Mcclain MD documented in this encounter [facility] 11-19-2023 History of Present illness Narrative Episode Visit Count: 1 Therapist That Will Accept/Oversee The Plan Of Care: Jarred Knutson Start of Care Date: 11/19/23 Onset Date: 10/20/23 Plan of Care Certification Date: 11/19/23 Next Certification Due Date: 01/19/24 Patient Identified by Name and Date of : Yes REHABILITATION AND SPORTS THERAPY PHYSICAL THERAPY EVALUATION PLAN OF CARE: Assessment: Florencai Sena presents with chief complaint of acute on chronic low back pain that interferes with bending, heavy exertion, lifting, physical activities, recreational activities, working, sleeping . She presents with impairments in ADL's, overall function, range of motion, strength, symptom management, and tissue tenderness. PROMIS (Patient-Reported Outcomes Measurement Information System) scores were reviewed and identified as a rehabilitation concern. Prognosis for therapy is Good due to: current objective clinical presentation, good overall health status, within-session changes, good support system/ coping skills . She will benefit from skilled therapy services to meet the goals established for this plan of care as noted below. Goals for Episode of Care: created on 11/19/23 through 01/19/24 Independent in home exercises. Patient will decrease pain rating by 2 points to meet minimal clinical important difference for numeric pain rating scale. Restore pain-free lumbar ROM to WNL to allow for improved functional mobility Stand / Walk as needed for work and ADLs without pain/symptoms. Maintain proper sitting posture throughout session Patient will increase strength of trunk/core to 4+/5 to allow for improve ability to complete ADLs. Planned Interventions, Frequency, and Duration: Current Frequency: 1x/week Duration: 8 weeks Total Number of Visits Planned: 8 Planned Treatment Interventions: Therapeutic exercise (28099), Neuromuscular re-education (60846), Manual therapy (95796), Therapeutic activities (05419), Self-penitentiary management (06788), Patient/Family/Caregiver Education, Body Mechanics Training PLAN FOR NEXT VISIT: Assess carry over of HEP and manual. May be a needling candidate Patient demonstrates good understanding of plan of care and treatment. The above goals and plan of care were discussed and agreed upon by patient/family. SUBJECTIVE: LBP and mid back pain for years, with recent worsening in both frequency and intensity. 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 In the past the pain would come and go, but in the last month it is constant. Functional Limitations: bending, heavy exertion, lifting, physical activities, recreational activities, working, sleeping Prior Level of Function: Independent without limitations Intake Information: Prescription present Red Flags Vertebral Fracture Red Flags: Female Vertebral Fracture Clinical Reasoning: No identified risk factors Abdominal Aortic Aneurysm Clinical Reasoning: No identified risk factors. Cancer Clinical Reasoning: No identified risk factors. Infection Clinical Reasoning: No identified risk factors. Cauda Equina Syndrome Clinical Reasoning: No identified risk factors. Red Flags - Cervical Cancer Clinical Reasoning: No identified risk factors. Infection Clinical Reasoning: No identified risk factors. Pain: Pain Pain Level: 9 (9 at worst, 5 at present) Pain Location: Low Back/Lumbar Spine- Midline Description: Pressure Frequency: Continuous Post Treatment Pain Post Treatment Pain Level: 3 PROMIS Scales 11/16/2023 Higher is Better Phys Func - Score 50 (within normal limits) Phys Func - Percentile 50 Self-Eff Symptom - Score 35 (Low) Self-Eff Symptom - Percentile 7 T-scores: mean of general population = 50. 5 points is clinically meaningfully difference Percentiles provide an indication of how the patient's score ranks in relation to the general population. Higher percentile rankings indicate better function/quality of life. 50th percentile is the average of the general population and indicates half of respondents had a worse score. OBJECTIVE MEASURES WITH LEVEL OF FUNCTION: Spine Observations R Lumbar Spine Palpation Tenderness: Paraspinals L Lumbar Spine Palpation Tenderness: Paraspinals R Thoracic Spine Palpation Tenderness: Paraspinals L Thoracic Spine Palpation Tenderness: Paraspinals Lumbar Spine AROM Lumbar Flexion: Normal Lumbar Extension: Minimal limitation, End range pain Lumbar R Side-Bend: Normal Lumbar L Side-Bend: Normal Lumbar R Rotation: End range pain Lumbar L Rotation: End range pain Thoracic Spine AROM Thoracic Flexion: Normal Thoracic Extension: Moderate limitation Thoracic Sidebend Right: Normal Thoracic Sidebend Left: Normal Thoracic Rotation Right: Moderate limitation, End range pain Thoracic Rotation Left: Moderate limitation, End range pain LE Strength Trunk Strength: 3+/5 R LE Strength: 5/5 L LE Strength: 5/5 Special Tests - Hip and Spine Hip and Spine Special Tests: SLR Test, Slump Test, Prone Instability Test, Extension with Rotation Test SLR Test: Right Negative, Left Negative Slump Test: Right Negative, Left Negative Prone Instability Test: Negative Extension with Rotation Test: Right Negative, Left Negative Education: TREATMENT: PT Treatment Interventions: Therapeutic Exercise, Manual Therapy Evaluation Therapeutic Exercise: 1: *Cat and cow to prayer stretch 3x10 2: *Quadruped thoracic rotation 3x10/side 3: *Side lying thoracic windmills 3x10/side Skilled Intervention: Patient was educated in proper exercise technique and purpose for exercises. Skilled judgment was used in selection of appropriate interventions. Provided written instruction for home exercise program to facilitate proper performance and compliance. Correct performance of therapeutic exercises was facilitated with verbal, visual, and tactile cuing. Manual Therapy: 1: STM and stripping to B lumbar and thoracic paraspinals with push to tolerance 2: Issued handout and discussed possible use of dry needling in future sessions Skilled Intervention: Manual skills to improve joint mobility, ROM, and decrease pain. Utilized anatomy knowledge of the therapist, and assessment of patient's response to intervention. Billing * Evaluation Low Complexity: 1 Unit Therapeutic Exercise Treatment Minutes: 5 Manual TherapyTreatment Minutes: 20 Skilled Treatment Time Minutes (timed and untimed codes): 50 Total Session Time (minutes): 50 Session Start Time : 1135 Session Stop Time : 1225 Jarred Knutson PT Program_ID:[id number] Access Code: [email or web address] URL: [email or web address] Date: 11-19-2023 Prepared By: Jarred Knutson Program Notes Exercises - Cat Cow to Child's Pose - 1 x daily - 7 x weekly - 3 sets - 10 reps - Quadruped Thoracic Rotation Full Range with Hand on Neck - 1 x daily - 7 x weekly - 3 sets - 10 reps - Sidelying Thoracic Lumbar Rotation - 1 x daily - 7 x weekly - 3 sets - 10 reps documented in this encounter [facility] 10-22-2023 History of Present illness Narrative 10/22/2023 Patient presents with: Same Day Appointment: lower back pain x 2 months SUBJECTIVE: This is a 33 year old that is here today for Complaint(s) of lower back marquez x 2 months, overall worsening. Pain and stiffness with standing or certain movements. 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 Tells me it is difficult to always lift properly secondary to her short stature. Sleeping with pillow between her legs. No prior history of trauma or injury. Denies numbness/tingling, bowel or bladder incontinence, saddles anesthesia, pain is not waking at night, unplanned weight changes. Has tried ibuprofen and baths, ice/warm compresses. Also mentions continued popping in her right ear. She was treated for an ear infection 1-2 months ago. Pain resolved and hearing returned to normal. Denies tinnitus, dizziness, nasal cognestion. PAST MEDICAL HISTORY Diagnosis Date Adjustment reaction Asthma as a baby Hypoglycemia ALLERGIES Macrobid [Nitrofurantoin Monohyd/M-Cryst], Ciprofloxacin, and Lexapro [Escitalopram Oxalate] MEDICATIONS Current Outpatient Medications Medication Sig valACYclovir (VALTREX) 1 gram tablet TAKE 1 TABLET BY MOUTH ONCE DAILY. START AT BEGINNING OF OUTBREAK. hydrocortisone (PROCTOZONE-HC) 2.5 % rectal cream Apply to irritated skin twice daily as needed levonorgestrel (MIRENA) 20 mcg/24 hr (5 years) IUD Inserted in office Lgythxknpvgwnxf-Abeeoviox-QQ (BROMFED DM) 2-30-10 mg/5 mL syrup Take 10 mL by mouth four times daily as needed. fluticasone (FLONASE) 50 mcg/actuation nasal spray Use 2 Sprays in each nostril once daily. Rinse mouth after use. hydrOXYzine pamoate (VISTARIL) 25 mg capsule Take 1 capsule by mouth three times daily as needed. (Patient not taking: Reported on 07/25/2022) fluticasone (FLONASE) 50 mcg/actuation nasal spray Use 2 Sprays in each nostril once daily. Rinse mouth after use. (Patient not taking: Reported on 11/23/2021 ) triamcinolone acetonide (KENALOG) 0.5 % cream apply to affected area three times a day for 7 days Hydrocortisone-Pramoxine 2.5-1 % (4g) crea by RECTAL route twice daily as needed. gabapentin (NEURONTIN) 100 mg capsule Take 1 capsule by mouth three times daily for 30 days. (Patient not taking: Reported on 07/25/2022) busPIRone (BUSPAR) 5 mg tablet Take 1 tablet by mouth twice daily. No current facility-administered medications for this visit. SOCIAL HISTORY Social History Tobacco Use Smoking status: Former Types: Cigarettes Smokeless tobacco: Never Vaping Use Vaping Use: Never used Substance Use Topics Alcohol use: Yes Comment: occasionally Drug use: No REVIEW OF SYSTEMS See HPI OBJECTIVE: BP 110/68 (BP Site: Left Arm, BP Position: Sitting, BP Cuff Size: Large Adult) Pulse 74 Temp 36.4 C (97.5 F) Resp 12 Ht 149.9 cm (4' 11) Wt 74.8 kg (165 lb) LMP 11/22/2016 (LMP Unknown) SpO2 98% BMI 33.33 kg/m APPEARANCE Well appearing, alert, in no acute distress, well-hydrated, well nourished. Ears:External ears normal, canals clear. TMs normal MANUELA With normal landmarks, no erythema. Right TM with small effusion,. BACK: No vertebral TTP. Normal ROM. Negative SLR MANUELA. EXTREMITIES Extremities normal, No deformities, No skin discoloration, No edema, and Normal pulses bilaterally. LE strength intact MANUELA. ASSESSMENT/PLAN: 1. Chronic bilateral low back pain without sciatica - ICD9: 724.2, 338.29, ICD10: M54.50, G89.29 (primary diagnosis) Recommend starting a course of antiinflammatories with food Ice/heat, stretching, proper lifting technique - CONSULT TO PHYSICAL THERAPY - NAPROXEN 500 MG TABLET 2. Chronic bilateral thoracic back pain - ICD9: 724.1, 338.29, ICD10: M54.6, G89.29 As above - Ice for localized tenderness - Warm moist heat for 20 min three times a day - NSAIDS- see orders - PT consult - CONSULT TO PHYSICAL THERAPY - NAPROXEN 500 MG TABLET 3. Eustachian tube dysfunction, right - ICD9: 381.81, ICD10: H69.91 Trial of flonase and sudafed F/u in 1-2 weeks if not resolving, sooner if worsening. Rina Espinal PA-C 10/22/2023 documented in this encounter [facility] 10-17-2023 Telephone encounter Note Last office appointment was 08/22/2023 [facility] 10-17-2023 Miscellaneous Notes Last office appointment was 08/22/2023 documented in this encounter [facility] 09-05-2023 Miscellaneous Notes Valtrex given Beto Vargas MD Last seen for annual 08/22/2023. Valtrex RX last given 03/13/2023 with 1 refill. order filed by nurse by accident-pharmacy called and informed documented in this encounter [facility] 09-03-2023 Miscellaneous Notes Placed call to patient with no answer. Left her detailed message advising her that Dr. Mcclain does not recommend she delay bx any further. Advised her to call back with any questions or concerns. Ashleigh Underwood MA This should have been done months ago. I would not recommend delaying it further. Patient returned call and patient said she spoke to someone, can not remember for sure who it was, about either continuing with mamm or having the biopsy done. Patient said she was going to think about it. Patient said she works 12 hours shifts at night and tries to sleep during the day. 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 Patient said the best time for her to get this done would be in the summer when child is out of school. She said area has not changed or grown hoping to continue with that plan. Called and left a voicemail for the Patient to call back and ask for a nurse to receive the providers message. Lor Becker RN Can we check what is going on with this. Let her know I am very concerned this is not taken care of yet. It can be dangerous to ignore Per Dr. Groves patient to have right ultrasound guided breast biopsy done at [facility]. Orders are in the chart Per protocol email sent to [facility] schedulers to have radiologist review and call patient to schedule accordingly Per patient aware of steps needed to be done and will be called to scheduled Patient aware to reach back out to office once procedures are scheduled to set an appointment up with Dr. Groves to go over results. Patient given direct line for anything further Veda Barclay Security Attendant Looks like Dr. Groves referred Florencia to [facility] for US guided breast bx per her note on 03/05/2023. The order status still says pending review. Dr. Groves do you have any updates from your [facility] contact for this patient, so she can be scheduled? Please advise? This was forwarded to Dr Groves's staff to take care of. Grace Ivy Ma Please let her know she must have misunderstood which is why everyone is trying to get in touch with her. She was referred by Dr Groves for possible biopsy at [facility]. Dr. Grovess order is still in place. Can we set up. I will forward this to Dr Groves who saw her. Actually she was referred for a biopsy. Patient calls back and states that no she did not get the biopsy done. Patient states that she was given the option of doing more mammograms or the breast biopsy. Patient states that she does not have the time to do breast biopsy. Patient states that she was told that it probably was not cancer. Sadaf Garcia RN Patient did log into her [employer] after the first message was left so I sent a [employer] message. Will see if she responds in the next 2 days. Message left for pt to call back. Aleyda Kirby Ma Can we check with patient. I was notified she was to have had a breast biopsy done that was ordered by Dr Groves in February and there is no record of it being done. Check if was done elsewhere, if not let her know it is very important to follow up on that. documented in this encounter [facility] 08-22-2023 History of Present illness Narrative Palliative Senior Np offered: Patient declines. Florencia is a 33 year old who presents for an annual gynecologic exam. Menses: no menses - Mirena IUD. Contraception: IUD HPV vaccine: 1 dose Last Pap: 06/22/2020 ASCUS HPV: 06/16/2020 negative History of abnormal pap: Yes - LEEP Last mammogram: 2022 diagnostic for right breast mass OB History T1 L1 SAB1 IAB0 Ectopic0 Multiple0 Live Births1 Designated Broker History LMP: 11/22/2016 (LMP Unknown), IUD Age at Menarche: Age at First : Age at Menopause: Designated Broker History Comments: Sexual Activity: Yes; Male Contraception: I.U.D. PAST MEDICAL HISTORY Diagnosis Date Adjustment reaction Asthma as a baby Hypoglycemia PAST SURGICAL HISTORY Procedure Laterality Date DELIVERY ONLY 12/11/14 , low transverse DILATION & CURETTAGE DX&/THER NONOBSTETRIC 09/03 Dilation & curettage INSERTION OF IUD LEEP PROCEDURE ([employer] DEPT)_*FL VAGINOSCOPY 07/16/2016 FAMILY HISTORY Problem Relation Age of Onset Cancer Mother Anxiety disorder Mother Bipolar disorder Father Cancer Paternal Grandfather Breast Cancer Paternal Grandmother Thyroid Maternal Aunt Breast Cancer Maternal Aunt SOCIAL HISTORY Social History Tobacco Use Smoking status: Former Types: Cigarettes Smokeless tobacco: Never Vaping Use Vaping Use: Never used Substance Use Topics Alcohol use: Yes Comment: occasionally Drug use: No REVIEW OF SYSTEMS Abdomen: No abdominal pain, nausea, vomiting, diarrhea, or constipation. No bloating, early satiety, indigestion, or increased flatulence. Bladder: No dysuria, gross hematuria, urinary frequency, urinary urgency, or incontinence. Breast: No breast lumps, nipple d/c, overlying skin changes, redness or skin retraction. Allergies and current medication updated:Yes EXAM: LMP 11/22/2016 GENERAL: pleasant, female in no apparent distress BREAST: soft, non-tender, symmetric, no dominant mass, normal nipple-areolar complex, no lymphadenopathy, and no nipple discharge CHEST: Normal inspiratory effort ABDOMEN: soft, non-tender, and no masses PELVIC: external genitalia normal, normal Bartholin's glands, urethra, [place]'s glands, no vulvar lesions, no cervical lesions, good vaginal support, physiologic discharge present, normal appearing perineal body and perianal region BIMANUAL: uterus normal size, shape and consistency, no adnexal masses, and non-tender RECTOVAGINAL: deferred. NEURO: alert and oriented x3,exam grossly non-focal EXTREMITIES: normal ASSESSMENT/PLAN: 1) Health maintenance: Pap done with HPV - ho LEEP Nutrition, exercise and routine health maintenance exams reviewed. Calcium/Vitamin D supplementation information provided. HPV vaccine: received 1 dose & declines further doses 2) Contraception: IUD. Contraceptive options reviewed and information provided. 3) STD screening: Declined STD check. 4) Follow up one year or sooner as needed 5) Will message about need for breast biopsy Beto Vargas MD documented in this encounter [facility] 06-09-2023 Instructions Hero Riggins APRN.ASSEMBLER TUBING - 06/09/2023 8:41 AM EST How to Manage Common Symptoms Associated with COVID for Adults Fever- Fever is a temperature over 100.4 F and can occur when the body is fighting an infection. To help treat a fever: Drink plenty of fluids and stay well hydrated. Eat small amounts of easy to digest food. Rest. Your body needs rest to recover, but getting up and moving around the house frequently is a good idea. You should try to continue doing your normal daily activities (bathing, toileting, grooming, cooking), though you will probably feel tired, and need to rest often. Avoid any heavy activity or exercise, as this will increase your body temperature. Dress in light clothing and stay covered in a light sheet. Keep the room temperature cool. Take a slightly warm (not cold or cool) bath, or apply damp washcloths to the forehead and wrists. Cough- Cough is a common symptom associated with COVID and can be bothersome. To help treat a cough: Stay well hydrated. Try warm water or tea with lemon and/or honey to help soothe the cough. Use a humidifier to add moisture to the air. Try a product with menthol, like a cough drop or a rub for your chest such as Vicks, which can help reduce cough. Try cough drops. Avoid smoking and other strong odors or perfumes. Try breathing exercises to keep your lungs open and clear. Take a big deep breath through your nose and hold for 5 seconds before slowly releasing. Repeat frequently, while you are awake. Congestion- Runny nose or nasal congestion can occur with COVID. Treatment can help relieve symptoms: Try OTC nasal saline spray, or nasal saline rinse to relieve mucus congestion. Nasal strips can help keep nasal passages open, to increase airflow. Elevating your head with an extra pillow in bed can help reduce congestion. Using a humidifier can increase moisture in the air, and make breathing easier. Sore Throat- Another common symptom with COVID, can be managed at home by: Stay well hydrated. Gargle with salt water - mix teaspoon salt with 1 cup of warm water and gargle. This helps to loosen mucus in the back of the throat and may reduce discomfort. Try ice chips, popsicles or lozenges to soothe the throat. Nausea/Vomiting/Diarrhea- These are common symptoms, and staying hydrated is most important. If you are nauseous or vomiting, start with small sips of water every 10-15 minutes and increase as tolerated. You can try sucking an ice cube too. If tolerating, you can try pedialyte or Gatorade, or flat sprite or izaiah-dominic. Start slowly and increase as you are able to. Instead of meals, try smaller, more frequent snacks. Try eating bland foods like crackers, toast, rice, and applesauce. Avoid spicy, greasy or fried foods and dairy containing foods. Even if you aren't feeling hungry due to lack of smell or taste, it is important to try to take in some food when you are able. After drinking and eating, rest in an upright position for up to two hours as needed to help decrease nauseous feelings. Try closing your eyes, avoid moving and watching TV. Avoid strong odors that can make you feel more nauseated. When to seek emergency medical attention Look for emergency warning signs for COVID-19. If having any of these symptoms, seek emergency medical care immediately: Trouble breathing Persistent pain or pressure in the chest New confusion Inability to wake or stay awake Bluish lips or face *This list is not all possible symptoms. Please call your medical provider for any other symptoms that are severe or concerning to you. documented in this encounter [facility] 06-09-2023 History of Present illness Narrative Subjective HPI Nontoxic-appearing female presents urgent care [facility] symptoms. Duration of symptoms 5 days. Associated symptoms right ear pain nasal congestion headache loose stools cough fatigue. Initially felt like she did have a fever body aches and chills night sweats the symptoms did improve. Sick contacts work similar signs symptoms. 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 COVID exposures. Did take a negative COVID home test on Saturday. Presents today for reevaluation. Patient was seen by me on diagnosed with viral URI. Denies any fever body aches chills today. No productive cough chest pain shortness of breath hemoptysis nausea vomiting abdominal pain or rash. .Patient presents with: Cough: R ear pain, congestion x5 days PAST MEDICAL HISTORY Diagnosis Date Adjustment reaction Asthma as a baby Hypoglycemia PAST SURGICAL HISTORY Procedure Laterality Date DELIVERY ONLY 12/11/14 , low transverse DILATION & CURETTAGE DX&/THER NONOBSTETRIC 09/03 Dilation & curettage INSERTION OF IUD LEEP PROCEDURE ([employer] DEPT)_*FL VAGINOSCOPY 07/16/2016 ALLERGIES Macrobid [Nitrofurantoin Monohyd/M-Cryst], Ciprofloxacin, and Lexapro [Escitalopram Oxalate] MEDICATIONS valACYclovir (VALTREX) 1 gram Take 1 tablet by mouth once daily. Start at beginning of outbreak. Ivsowsyibvwonzm-Htknfrphn-NM (BROMFED DM) 2-30-10 mg/5 mL syrup Take 10 mL by mouth four times daily as needed. fluticasone (FLONASE) 50 mcg/actuation nasal spray Use 2 Sprays in each nostril once daily. Rinse mouth after use. hydrocortisone (PROCTOZONE-HC) 2.5 % rectal cream Apply to irritated skin twice daily as needed triamcinolone acetonide (KENALOG) 0.5 % cream apply to affected area three times a day for 7 days Hydrocortisone-Pramoxine 2.5-1 % (4g) crea by RECTAL route twice daily as needed. busPIRone (BUSPAR) 5 mg tablet Take 1 tablet by mouth twice daily. levonorgestrel (MIRENA) 20 mcg/24 hr (5 years) IUD Inserted in office hydrOXYzine pamoate (VISTARIL) 25 mg capsule Take 1 capsule by mouth three times daily as needed. (Patient not taking: Reported on 07/25/2022) fluticasone (FLONASE) 50 mcg/actuation nasal spray Use 2 Sprays in each nostril once daily. Rinse mouth after use. (Patient not taking: Reported on 11/23/2021 ) gabapentin (NEURONTIN) 100 mg capsule Take 1 capsule by mouth three times daily for 30 days. (Patient not taking: Reported on 07/25/2022) FAMILY HISTORY Problem Relation Age of Onset Cancer Mother Anxiety disorder Mother Bipolar disorder Father Cancer Paternal Grandfather Breast Cancer Paternal Grandmother Thyroid Maternal Aunt Breast Cancer Maternal Aunt Social History Tobacco Use Smoking status: Former Types: Cigarettes Smokeless tobacco: Never Vaping Use Vaping Use: Never used Substance Use Topics Alcohol use: Yes Comment: occasionally Drug use: No BP 106/74 Pulse 83 Temp 36.5 C (97.7 F) Resp 18 Wt 72.1 kg (159 lb) LMP 11/22/2016 (LMP Unknown) SpO2 99% BMI 32.11 kg/m Review of Systems Constitutional: Positive for malaise/fatigue. Negative for chills and fever. HENT: Positive for congestion and ear pain. Negative for ear discharge, sinus pain and sore throat. Eyes: Negative for blurred vision, pain, discharge and redness. Respiratory: Positive for cough. Negative for hemoptysis, sputum production, shortness of breath, wheezing and stridor. Cardiovascular: Negative for chest pain. Gastrointestinal: Negative for abdominal pain, diarrhea, nausea and vomiting. Musculoskeletal: Positive for myalgias. Skin: Negative for itching and rash. Neurological: Positive for headaches. Negative for dizziness. Objective Physical Exam Constitutional: General: She is not in acute distress. Appearance: She is not diaphoretic. HENT: Head: Normocephalic. Jaw: No trismus, tenderness, swelling or pain on movement. Right Ear: Ear canal and external ear normal. Tympanic membrane is bulging. Left Ear: Tympanic membrane, ear canal and external ear normal. Ears: Comments: Clear fluid noted behind bilateral TMs. Right greater than left. Nose: Congestion present. Mouth/Throat: Mouth: Mucous membranes are moist. Pharynx: Oropharynx is clear. Uvula midline. No pharyngeal swelling, oropharyngeal exudate, posterior oropharyngeal erythema or uvula swelling. Eyes: Conjunctiva/sclera: Conjunctivae normal. Pupils: Pupils are equal, round, and reactive to light. Cardiovascular: Rate and Rhythm: Normal rate and regular rhythm. Heart sounds: Normal heart sounds. Pulmonary: Effort: Pulmonary effort is normal. No tachypnea, accessory muscle usage or respiratory distress. Breath sounds: Normal breath sounds. No stridor. No wheezing, rhonchi or rales. Abdominal: General: There is no distension. Palpations: Abdomen is soft. Tenderness: There is no abdominal tenderness. There is no guarding or rebound. Musculoskeletal: Cervical back: Normal range of motion and neck supple. No edema, erythema, rigidity or tenderness. No pain with movement. Normal range of motion. Lymphadenopathy: Cervical: No cervical adenopathy. Skin: General: Skin is warm and dry. Neurological: Mental Status: She is alert and oriented to person, place, and time. ASSESSMENT/PLAN: 1. Viral illness - ICD9: 079.99, ICD10: B34.9 - Discussed viral etiology and rationale for treatment. - Symptomatic treatment with prn analgesia - Supportive care with fluids and rest No evidence of bacterial infection noted today. Will use Flonase and Zyrtec. Treat as viral illness/eustachian tube dysfunction. Patient will follow up with primary care provider as needed. Patient was instructed to immediately proceed to emergency room for any new, worsening, or symptoms lasting longer than anticipated. The patient's clinical presentation is otherwise unremarkable at this time. Based on exam and clinical finding, the patient is stable for discharge. Plan of care was discussed with patient. Patient verbalizes understanding and agrees to plan of care. This note was generated using [email or web address] software. It may contain errors in wording, punctuation, or spelling. - COVID & INFLUENZA A/B NAAT, ROUTINE Hero Riggins APRN.ASSEMBLER TUBING documented in this encounter [facility] 06-06-2023 Instructions Hero Riggins APRN.ASSEMBLER TUBING - 06/06/2023 4:14 PM EST [facility] PATIENT INFO PHARYNGITIS OVERVIEW A sore throat (pharyngitis) is a common problem, and usually is caused by a viral or bacterial infection. Sore throat usually resolves on its own without complications in adults, although it is important to know when to seek medical attention. Viruses can cause a sore throat and other upper respiratory infections, such as the common cold. Sore throat caused by a virus is not treated with antibiotics, but instead may be treated with rest, pain medication, and other therapies aimed at relieving symptoms. Strep throat is a particular kind of pharyngitis that is caused by a bacterium known as group A streptococcus (GAS). Strep throat is treated with a course of antibiotics. SORE THROAT SYMPTOMS Viral pharyngitis -- Most people with a sore throat have a virus. The most common viruses are those that cause upper respiratory infections, such as the common cold. Symptoms of a viral infection can include: A runny or congested nose Irritation or redness of the eyes Cough, hoarseness, or soreness in the roof of the mouth Some viruses cause a fever and can make you feel quite ill. Strep throat -- Approximately 10 percent of adults with a sore throat have strep throat. Signs and symptoms of strep throat include the following: Pain in the throat Fever (temperature greater than 100.4 F or 38 C) Enlarged lymph glands in the neck White patches of pus on the side or back of the throat No cough, runny nose, or irritation/redness of the eyes Other infections -- Many other less common but more serious infections can cause a sore throat, including mononucleosis (mono), influenza (the flu), N. gonococcus (gonorrhea), human immunodeficiency virus (HIV), and others. When to seek urgent help -- See your doctor or nurse immediately if you have a sore throat along with any of the following: Difficulty breathing Skin rash Drooling because you cannot swallow Swelling of the neck or tongue Stiff neck or difficulty opening the mouth SORE THROAT DIAGNOSIS Most people with a sore throat get better without treatment. There is no specific treatment for a sore throat caused by usual cold viruses. Is it strep or not? -- A combination of symptoms (fever, enlarged glands in the neck, white patches on your tonsils, and no cough) can help in determining if you have strep. If you have two or more symptoms, a rapid test or throat culture may be done. People with fewer than two symptoms usually do not need testing or treatment for strep throat. Rapid test -- The rapid test determines if there are streptococcus bacteria on a throat swab. The test can be done in a clinician's office and the results are available within a few minutes. The test is accurate in most cases, although a small percentage of tests are falsely negative (the bacteria are present but the test is negative). Throat culture -- A throat culture involves swabbing the throat, sending the swab to a laboratory, and waiting 24 to 48 hours for the results. Throat cultures are slightly more accurate than the rapid test. TREATMENT OF SORE THROAT Sore throat treatment -- Antibiotics do not help throat pain caused by a virus and are not recommended. Sore throat caused by viral infections usually lasts four to five days. During this time, treatments to reduce pain may be helpful. Several therapies can help to relieve throat pain. Pain medication -- You can treat your throat pain with a mild pain reliever such as acetaminophen (Tylenol ) or a non-steroidal anti-inflammatory agent such as ibuprofen or naproxen (Motrin or Aleve ). Oral rinses -- Salt-water gargles are an old stand-by for throat pain. It is not clear that salt water works to relieve pain, but it is unlikely to be harmful. Most recipes suggest 1/4 to 1/2 teaspoon of salt per one cup (8 ounces) of warm water. Sprays -- Sprays containing topical anesthetics (eg, benzocaine, phenol) are available to treat sore throat. However, such sprays are no more effective than sucking on hard candy. Lozenges -- A variety of lozenges (cough drops) are available to treat throat pain or relieve dryness. However, it is not clear that lozenges work any better than other forms of hard candy, which are generally less expensive. Other treatments -- Other treatments that may help with throat pain include sipping warm beverages (eg, honey or lemon tea, chicken soup), cold beverages, or eating cold or frozen desserts (eg, ice cream, popsicles). Alternative therapies -- Health food stores, vitamin outlets, and Internet Web sites offer alternative treatments for relief of sore throat pain. We do not recommend these type of treatments due to the risks of contamination with pesticides/herbicides, inaccurate labeling and dosing information, and a lack of studies showing that these treatments are safe and effective. Strep throat -- Although strep throat typically resolves on its own within two to five days, treatment with antibiotics is recommended for adults whose rapid test or throat culture is positive for strep throat. Penicillin, or an antibiotic related to penicillin, is the treatment of choice for strep throat. It is usually given in pill or liquid form two to four times per day for 10 days. A one time injection of penicillin is also available. People who are allergic to penicillin are given an alternate antibiotic. It is important to finish the entire course of treatment to completely eliminate the infection. If symptoms do not begin to improve or worsen by three days of antibiotic treatment, you should see your doctor or nurse again. Return to work/school -- If you have been diagnosed with strep throat, stay home from work or school until you have completed 24 hours of antibiotics. Within 24 hours of beginning antibiotic treatment, you will feel better and will be less contagious [1]. If you have a sore throat (not diagnosed as strep), you may participate in your usual activities as soon as you feel well. SORE THROAT PREVENTION Hand washing is an essential and highly effective way to prevent the spread of infection. Wet your hands with water and plain soap, and rub them together for 15 to 30 seconds. Pay special attention to the fingernails, between the fingers, and the wrists. Rinse your hands thoroughly, and dry them with a clean towel. Alcohol-based hand rubs are a good alternative for disinfecting hands if a sink is not available. Hand rubs should be spread over the entire surface of hands, fingers, and wrists until dry, and may be used several times. These rubs can be used repeatedly without skin irritation or loss of effectiveness. Hand rubs are available as a liquid or wipe in small, portable sizes that are easy to carry in a pocket or handbag. When a sink is available, visibly soiled hands should be washed with soap and water. Wash your hands after coughing, blowing the nose, or sneezing. While it is not always possible to avoid being near a person who is sick, avoiding touching your eyes, nose, or mouth to prevent the spread of infection. In addition, tissues should be used to cover the mouth when sneezing or coughing. These used tissues should be disposed of promptly. Sneezing/coughing into your sleeve (at the inner elbow) is another way to contain sprays of saliva and secretions and will not contaminate your hand documented in this encounter [facility] 06-06-2023 History of Present illness Narrative Subjective HPI Nontoxic-appearing female presents to urgent care with chief complaint of upper respiratory tract like infection. Duration of symptoms 2 days. Associated symptoms sore throat, nasal congestion, nasal discharge and nonproductive cough. Most prominent symptom today is sore throat. Patient denies the use of any [id number] medications or home remedies for symptom management. Patient states recent sick contacts with similar signs and symptoms. 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 Patient denies any productive cough, fever, chest pain, shortness of breath, pleuritic pain, rash, abdominal pain, nausea, vomiting or change in bowel or bladder habit. Past medical history prescription medications allergies reviewed. .Patient presents with: Sore Throat: ST and cough x 2 days PAST MEDICAL HISTORY Diagnosis Date Adjustment reaction Asthma as a baby Hypoglycemia PAST SURGICAL HISTORY Procedure Laterality Date DELIVERY ONLY 12/11/14 , low transverse DILATION & CURETTAGE DX&/THER NONOBSTETRIC 09/03 Dilation & curettage INSERTION OF IUD LEEP PROCEDURE ([employer] DEPT)_*FL VAGINOSCOPY 07/16/2016 ALLERGIES Macrobid [Nitrofurantoin Monohyd/M-Cryst], Ciprofloxacin, and Lexapro [Escitalopram Oxalate] MEDICATIONS valACYclovir (VALTREX) 1 gram Take 1 tablet by mouth once daily. Start at beginning of outbreak. levonorgestrel (MIRENA) 20 mcg/24 hr (5 years) IUD Inserted in office Mmbwevwqtqqsbpe-Mzxxqphuh-NK (BROMFED DM) 2-30-10 mg/5 mL syrup Take 10 mL by mouth four times daily as needed. (Patient not taking: Reported on 06/06/2023) fluticasone (FLONASE) 50 mcg/actuation nasal spray Use 2 Sprays in each nostril once daily. Rinse mouth after use. (Patient not taking: Reported on 03/05/2023) hydrOXYzine pamoate (VISTARIL) 25 mg capsule Take 1 capsule by mouth three times daily as needed. (Patient not taking: Reported on 07/25/2022) fluticasone (FLONASE) 50 mcg/actuation nasal spray Use 2 Sprays in each nostril once daily. Rinse mouth after use. (Patient not taking: Reported on 11/23/2021 ) hydrocortisone (PROCTOZONE-HC) 2.5 % rectal cream Apply to irritated skin twice daily as needed (Patient not taking: Reported on 07/25/2022) triamcinolone acetonide (KENALOG) 0.5 % cream apply to affected area three times a day for 7 days (Patient not taking: Reported on 11/23/2021) Hydrocortisone-Pramoxine 2.5-1 % (4g) crea by RECTAL route twice daily as needed. (Patient not taking: Reported on 07/25/2022) gabapentin (NEURONTIN) 100 mg capsule Take 1 capsule by mouth three times daily for 30 days. (Patient not taking: Reported on 07/25/2022) busPIRone (BUSPAR) 5 mg tablet Take 1 tablet by mouth twice daily. (Patient not taking: Reported on 03/05/2023) FAMILY HISTORY Problem Relation Age of Onset Cancer Mother Anxiety disorder Mother Bipolar disorder Father Cancer Paternal Grandfather Breast Cancer Paternal Grandmother Thyroid Maternal Aunt Breast Cancer Maternal Aunt Social History Tobacco Use Smoking status: Former Types: Cigarettes Smokeless tobacco: Never Vaping Use Vaping Use: Never used Substance Use Topics Alcohol use: Yes Comment: occasionally Drug use: No BP 110/78 Pulse 61 Temp 36.3 C (97.3 F) (Tympanic) Resp 16 Wt 72.8 kg (160 lb 6.4 oz) LMP 11/22/2016 (LMP Unknown) SpO2 98% BMI 32.40 kg/m Review of Systems Constitutional: Negative for chills, fever and malaise/fatigue. HENT: Positive for congestion, sinus pain and sore throat. Negative for ear discharge and ear pain. Eyes: Negative for blurred vision, pain, discharge and redness. Respiratory: Positive for cough. Negative for hemoptysis, sputum production, shortness of breath, wheezing and stridor. Cardiovascular: Negative for chest pain. Gastrointestinal: Negative for abdominal pain, diarrhea, nausea and vomiting. Musculoskeletal: Negative for myalgias. Skin: Negative for itching and rash. Neurological: Positive for headaches. Negative for dizziness. Objective Physical Exam Constitutional: General: She is not in acute distress. Appearance: She is not diaphoretic. HENT: Head: Normocephalic. Jaw: No trismus, tenderness, swelling or pain on movement. Nose: Congestion present. Mouth/Throat: Mouth: Mucous membranes are moist. Pharynx: Oropharynx is clear. Uvula midline. Posterior oropharyngeal erythema present. No pharyngeal swelling, oropharyngeal exudate or uvula swelling. Tonsils: No tonsillar exudate or tonsillar abscesses. Eyes: Conjunctiva/sclera: Conjunctivae normal. Pupils: Pupils are equal, round, and reactive to light. Cardiovascular: Rate and Rhythm: Normal rate and regular rhythm. Heart sounds: Normal heart sounds. Pulmonary: Effort: Pulmonary effort is normal. No tachypnea, accessory muscle usage or respiratory distress. Breath sounds: Normal breath sounds. No stridor. No wheezing, rhonchi or rales. Abdominal: General: There is no distension. Palpations: Abdomen is soft. Tenderness: There is no abdominal tenderness. There is no guarding or rebound. Musculoskeletal: Cervical back: Normal range of motion and neck supple. No edema, erythema, rigidity or tenderness. No pain with movement. Normal range of motion. Lymphadenopathy: Cervical: No cervical adenopathy. Skin: General: Skin is warm and dry. Neurological: Mental Status: She is alert and oriented to person, place, and time. ASSESSMENT/PLAN: 1. Viral URI - ICD9: 465.9, ICD10: J06.9 (primary diagnosis) 2. Sore throat - ICD9: 462, ICD10: J02.9 Strep test negative. No evidence of bacterial infection. Treat as viral pharyngitis. Patient was educated on supportive therapies. Patient will follow up with primary care provider as needed. Patient was instructed to immediately proceed to emergency room for any new, worsening, or symptoms lasting longer than anticipated. The patient's clinical presentation is otherwise unremarkable at this time. Based on exam and clinical finding, the patient is stable for discharge. Plan of care was discussed with patient. Patient verbalizes understanding and agrees to plan of care. This note was generated using [email or web address] software. It may contain errors in wording, punctuation, or spelling. Hero Riggins APRN.PABLO documented in this encounter [facility] 03-05-2023 History of Present illness Narrative Radiology Service Progress Note PATIENT NAME: Florencia Sena DATE OF SERVICE: March 05, 2023 TIME: 11:23 AM PATIENT IDENTITY VERIFICATION COMPLETED USING TWO (2) IDENTIFIERS: Name and Date of confirmed by patient verbally. FALL SCREENING: Has the patient had 2 falls in the last year or 1 fall with injury or currently using an Ambulatory Assistive Device (Walker, Cane, Wheelchair, Crutches, etc.)? No PATIENT GENDER DATA: Female. status: : No status: NO. PATIENT RELEVANT IMPLANT DATA REVIEWED: Not Applicable RADIOLOGY DEPARTMENT: Mammography PERIPHERAL IV DATA: Not applicable SIGNED BY: RT John(R) March 05, 2023 11:23 AM documented in this encounter [facility] 01-23-2023 Miscellaneous Notes Right breast. Cee Marshall APRN.CNP Please call patient and assist with scheduling. Lin Azul RN Done. Cee Marshall APRN.CNP A left breast order was placed, but previous imaging and orders were for right. Please file. Liana Krishnamurthy RN I placed an order in case she needs it. Cee Marshall APRN.CNP Does patient have to have a mammogram? Due to insurance purposes patient needs to have an mamogram order placed before she can get her Us breast done. Please advise patient when the order is placed. Nadine Delgado documented in this encounter [facility] 11-01-2022 Miscellaneous Notes Patient returned call and given provider's message below and patient verbalized understanding. Nilesh Norton RN Left message for pt to call back. Christina Mix MA Negatvie covid and flu documented in this encounter [facility] 10-31-2022 History of Present illness Narrative This note was created using [employer]. Subjective Florencia Snea is a 32 year old female. HPI Patient presents with congestion, headache, nausea over the past 3 days. She was seen 2 days ago and had a negative strep test at that time. No fever but has felt warm. She has had some vomiting. She is drinking fluids. Not wanting to eat much. She did have some loose stools in the beginning of this but none now. No home COVID test done. She does work at a [employer]. She has had body aches as well. Review of Systems Constitutional: Positive for appetite change, chills and fatigue. Negative for fever. HENT: Positive for congestion, postnasal drip, rhinorrhea and sinus pressure. Negative for ear pain and sore throat. Respiratory: Positive for cough. Negative for shortness of breath and wheezing. Cardiovascular: Negative for chest pain. Gastrointestinal: Positive for diarrhea, nausea and vomiting. Negative for abdominal pain. Genitourinary: Negative. Musculoskeletal: Positive for myalgias. Neurological: Positive for headaches. All other systems reviewed and are negative. PAST MEDICAL HISTORY Diagnosis Date Adjustment reaction Asthma as a baby Hypoglycemia Current Outpatient Medications Medication Sig Dispense Refill ondansetron orally disintegrating (ZOFRAN ODT) 4 mg disintegrating tablet Take 1 tablet by mouth every 8 hours as needed for nausea/vomiting for up to 5 days. 15 tablet 0 busPIRone (BUSPAR) 5 mg tablet Take 1 tablet by mouth twice daily. 180 tablet 0 levonorgestrel (MIRENA) 20 mcg/24 hr (5 years) IUD Inserted in office 1 Each 0 Ytysquhhxkkkemy-Hmxuaksrr-OL (BROMFED DM) 2-30-10 mg/5 mL syrup Take 10 mL by mouth four times daily as needed. 200 mL 0 ibuprofen (MOTRIN) 800 mg tablet Take 1 tablet by mouth every 8 hours as needed for pain (with food.) for up to 5 days. 15 tablet 0 fluticasone (FLONASE) 50 mcg/actuation nasal spray Use 2 Sprays in each nostril once daily. Rinse mouth after use. 1 Each 0 hydrOXYzine pamoate (VISTARIL) 25 mg capsule Take 1 capsule by mouth three times daily as needed. (Patient not taking: Reported on 07/25/2022) 10 capsule 0 fluticasone (FLONASE) 50 mcg/actuation nasal spray Use 2 Sprays in each nostril once daily. Rinse mouth after use. (Patient not taking: Reported on 11/23/2021 ) 1 Bottle 0 hydrocortisone (PROCTOZONE-HC) 2.5 % rectal cream Apply to irritated skin twice daily as needed (Patient not taking: Reported on 07/25/2022) 28 g 1 triamcinolone acetonide (KENALOG) 0.5 % cream apply to affected area three times a day for 7 days (Patient not taking: Reported on 11/23/2021) Hydrocortisone-Pramoxine 2.5-1 % (4g) crea by RECTAL route twice daily as needed. (Patient not taking: Reported on 07/25/2022) 4 g 1 gabapentin (NEURONTIN) 100 mg capsule Take 1 capsule by mouth three times daily for 30 days. (Patient not taking: Reported on 07/25/2022) 90 capsule 0 No current facility-administered medications for this visit. PAST SURGICAL HISTORY Procedure Laterality Date DELIVERY ONLY 12/11/14 , low transverse DILATION & CURETTAGE DX&/THER NONOBSTETRIC 09/03 Dilation & curettage INSERTION OF IUD LEEP PROCEDURE ([employer] DEPT)_*FL VAGINOSCOPY 07/16/2016 FAMILY HISTORY Problem Relation Age of Onset Cancer Mother Anxiety disorder Mother Bipolar disorder Father Cancer Paternal Grandfather Breast Cancer Paternal Grandmother Thyroid Maternal Aunt Breast Cancer Maternal Aunt Social History Tobacco Use Smoking status: Former Types: Cigarettes Smokeless tobacco: Never Vaping Use Vaping Use: Never used Substance Use Topics Alcohol use: Yes Comment: occasionally Drug use: No Objective BP 110/80 Pulse 95 Temp 36.9 C (98.4 F) Resp 20 Wt 69.5 kg (153 lb 3.2 oz) LMP 11/22/2016 (LMP Unknown) SpO2 98% BMI 30.94 kg/m Physical Exam Vitals reviewed. Constitutional: Appearance: Normal appearance. HENT: Head: Normocephalic and atraumatic. Right Ear: Tympanic membrane, ear canal and external ear normal. Left Ear: Tympanic membrane, ear canal and external ear normal. Nose: Congestion present. Mouth/Throat: Mouth: Mucous membranes are moist. Pharynx: Oropharynx is clear. Cardiovascular: Rate and Rhythm: Normal rate and regular rhythm. Heart sounds: Normal heart sounds. Pulmonary: Effort: Pulmonary effort is normal. Breath sounds: Normal breath sounds. Musculoskeletal: Cervical back: Neck supple. Lymphadenopathy: Cervical: No cervical adenopathy. Skin: General: Skin is warm and dry. Neurological: General: No focal deficit present. Mental Status: She is alert and oriented to person, place, and time. Assessment and Plan ASSESSMENT/PLAN: 1. Viral URI - ICD9: 465.9, ICD10: J06.9 - Discussed viral etiology and rationale for treatment. - Symptomatic treatment with prn analgesia - Supportive care with fluids and rest - bromfed, flonase, and motrin rx. - red flags to be seen again discussed. - COVID WITH FLUA+B, ROUTINE Latoya Morales PA-C documented in this encounter [facility] 10-29-2022 History of Present illness Narrative CC: Patient presents with: Sore Throat: nausea and vomiting x today HPI: Florencia Sena is a 32 year old female who presents to the office with complaint of sore throat since this morning. Symptoms are staying the same. Associated symptoms includes sore throat, nausea, and vomiting . Denies ear pain and diarrhea. Treatments tried include nothing so far. with no relief of symptoms. Sick contacts: unknown. History of asthma, frequent episodes of bronchitis, chronic bronchitis, bronchiectasis or COPD: No Smoker: No Seasonal/environmental allergies: No The ROS is otherwise negative. The patient's pmh, medications, allergies, and past visits are reviewed. PHYSICAL EXAM: BP 124/72 Pulse 102 Temp 36.8 C (98.2 F) Resp 18 Wt 71.2 kg (157 lb) LMP 11/22/2016 (LMP Unknown) SpO2 99% BMI 31.71 kg/m General appearance: alert, cooperative, pleasant, in no acute distress Head: Normocephalic Eyes: EOM's intact, conjunctiva pink and moist, no icterus, sclera white, non-injected Ears: Right ear: External ear/canal- Normal, TM - clear with good landmarks. Left ear: External ear/canal- Normal, TM - clear with good landmarks Oropharynx:moist without lesions, No erythema, exudates or tonsillar hypertrophy. Heart: Negative. RRR without obvious murmur, gallop, or rubs. No ectopy. Lungs: clear to auscultation, without rales or wheeze, good air exchange PAST MEDICAL HISTORY Diagnosis Date Adjustment reaction Asthma as a baby Hypoglycemia PAST SURGICAL HISTORY Procedure Laterality Date DELIVERY ONLY 12/11/14 , low transverse DILATION & CURETTAGE DX&/THER NONOBSTETRIC 09/03 Dilation & curettage INSERTION OF IUD LEEP PROCEDURE ([employer] DEPT)_*FL VAGINOSCOPY 07/16/2016 ALLERGIES Macrobid [Nitrofurantoin Monohyd/M-Cryst], Ciprofloxacin, and Lexapro [Escitalopram Oxalate] MEDICATIONS busPIRone (BUSPAR) 5 mg tablet Take 1 tablet by mouth twice daily. levonorgestrel (MIRENA) 20 mcg/24 hr (5 years) IUD Inserted in office hydrOXYzine pamoate (VISTARIL) 25 mg capsule Take 1 capsule by mouth three times daily as needed. (Patient not taking: Reported on 07/25/2022) fluticasone (FLONASE) 50 mcg/actuation nasal spray Use 2 Sprays in each nostril once daily. Rinse mouth after use. (Patient not taking: Reported on 11/23/2021 ) hydrocortisone (PROCTOZONE-HC) 2.5 % rectal cream Apply to irritated skin twice daily as needed (Patient not taking: Reported on 07/25/2022) triamcinolone acetonide (KENALOG) 0.5 % cream apply to affected area three times a day for 7 days (Patient not taking: Reported on 11/23/2021) Hydrocortisone-Pramoxine 2.5-1 % (4g) crea by RECTAL route twice daily as needed. (Patient not taking: Reported on 07/25/2022) gabapentin (NEURONTIN) 100 mg capsule Take 1 capsule by mouth three times daily for 30 days. (Patient not taking: Reported on 07/25/2022) FAMILY HISTORY Problem Relation Age of Onset Cancer Mother Anxiety disorder Mother Bipolar disorder Father Cancer Paternal Grandfather Breast Cancer Paternal Grandmother Thyroid Maternal Aunt Breast Cancer Maternal Aunt Social History Tobacco Use Smoking status: Former Types: Cigarettes Smokeless tobacco: Never Vaping Use Vaping Use: Never used Substance Use Topics Alcohol use: Yes Comment: occasionally Drug use: No ASSESSMENT/PLAN: 1. Sore throat - ICD9: 462, ICD10: J02.9 (primary diagnosis) - STREP A MOLECULAR (POC) - neg 2. Nausea and vomiting, unspecified vomiting type - ICD9: 787.01, ICD10: R11.2 - ONDANSETRON 4 MG DISINTEGRATING TABLET Prescription instructions reviewed with patient as applicable. Potential red flag symptoms discussed with the patient. Reviewed appropriate action plan to take if red flag symptoms occur. Patient agreeable to treatment plan. Estefanía Vargas APRN.PABLO documented in this encounter [facility] 07-25-2022 History of Present illness Narrative Patient presents with: Sore Throat: strep exposure x 1 day HPI: Feeling sick since yesterday. Her daughter has strep throat. There is flu going around her work. Positive symptoms: Sore throat, slight Cough, Nasal Congestion, Rhinorrhea, Headache, Nausea, Vomiting, Negative symptoms: Fever, Diarrhea, OTC: Ibuprofen MEDICATIONS: Current Outpatient Medications Medication Sig busPIRone (BUSPAR) 5 mg tablet Take 1 tablet by mouth twice daily. hydrOXYzine pamoate (VISTARIL) 25 mg capsule Take 1 capsule by mouth three times daily as needed. (Patient not taking: Reported on 07/25/2022) fluticasone (FLONASE) 50 mcg/actuation nasal spray Use 2 Sprays in each nostril once daily. Rinse mouth after use. (Patient not taking: Reported on 11/23/2021 ) hydrocortisone (PROCTOZONE-HC) 2.5 % rectal cream Apply to irritated skin twice daily as needed (Patient not taking: Reported on 07/25/2022) triamcinolone acetonide (KENALOG) 0.5 % cream apply to affected area three times a day for 7 days (Patient not taking: Reported on 11/23/2021) Hydrocortisone-Pramoxine 2.5-1 % (4g) crea by RECTAL route twice daily as needed. (Patient not taking: Reported on 07/25/2022) gabapentin (NEURONTIN) 100 mg capsule Take 1 capsule by mouth three times daily for 30 days. (Patient not taking: Reported on 07/25/2022) levonorgestrel (MIRENA) 20 mcg/24 hr (5 years) IUD Inserted in office No current facility-administered medications for this visit. ALLERGIES: ALLERGIES Allergen Reactions Macrobid [Nitrofura* Rash Ciprofloxacin Rash Lexapro [Escitalopr* Intolerance dilates pupils, muscle spasms, sleeping issues(afraid to go to sleep) VITALS: BP 106/68 Pulse 82 Temp 36.6 C (97.8 F) Resp 16 Wt 67.6 kg (149 lb) LMP 11/22/2016 (LMP Unknown) SpO2 98% BMI 30.09 kg/m PHYSICAL EXAM: GEN: mildly ill appearing HEENT: PERRL, EOMI, conjunctiva clear Ears: canals clear. TMs without erythema, bulge, or effusion Sinuses: non-tender frontal sinus, non-tender maxillary sinuses Throat: moist mucous membranes, mild erythema, no exudate Neck: supple, no thyromegaly, no lymphadenopathy HEART: regular rate and rhythm, no murmurs LUNGS: clear to auscultation, no wheezes or crackles, no increased WOB ASSESSMENT/PLAN: 1. Sore throat - ICD9: 462, ICD10: J02.9 (primary diagnosis) 2. Exposure to strep throat - ICD9: V01.89, ICD10: Z20.818 - STREP A MOLECULAR (POC) - negative - suspect viral URI, differential includes COVID-19 and influenza. - Discussed supportive care treatment with home isolation, rest, cold medicine, and analgesia. - Red flags to seek further treatment include chest pain, shortness of breath, and lethargy; in the ER if severe. - COVID WITH FLUA+B, ROUTINE Consider strep repeat if sore throat worsens or persist. Alverto Prabhakar MD documented in this encounter [facility] 01-09-2022 Miscellaneous Notes Pt returning message regarding medication to use for flying. Priscila Mullins Ma documented in this encounter [facility] 11-28-2021 History of Present illness Narrative Radiology Service Progress Note PATIENT NAME: Florencia Sena DATE OF SERVICE: November 28, 2021 TIME: 1:03 PM PATIENT IDENTITY VERIFICATION COMPLETED USING TWO (2) IDENTIFIERS: Name and Date of confirmed by patient verbally. FALL SCREENING: Has the patient had 2 falls in the last year or 1 fall with injury or currently using an Ambulatory Assistive Device (Walker, Cane, Wheelchair, Crutches, etc.)? No PATIENT GENDER DATA: Female. status: : No status: N/A PATIENT RELEVANT IMPLANT DATA REVIEWED: Not Applicable RADIOLOGY DEPARTMENT: Ultrasound PERIPHERAL IV DATA: Not applicable SIGNED BY: Yamileth Dorsey RDMS RVT November 28, 2021 1:03 PM documented in this encounter [facility] 11-23-2021 Instructions Cee Marshall APRN.ASSEMBLER TUBING - 11/23/2021 3:49 PM EDT Gardasil Gardasil is a vaccine to protect against Human Papillomavirus (HPV) types 6, 11, 16, 18, 31,33,45, 52, 58. These viruses cause cancer and precancerous lesions on the cervix (opening between vagina and uterus), in the vagina and on the vulva (skin around the outside of the vagina) as well as genital warts. The vaccine cannot cause these diseases and cannot treat them if already present. Gardasil works best if given before contact with HPV. Most people are exposed to HPV soon after starting sexual activity. The vaccine is recommended between the ages of 9 and 45. Gardasil does not protect against all strains of HPV. Women who receive the vaccine still need to have regular pelvic exams and cervical cancer screening with the pap smear. You should ask your doctor if Gardasil is right for you if you have a weakened immune system, a bleeding disorder, plan to become soon or have a current illness causing fever. Gardasil is not recommended for women. You should be sure your doctor is aware of any allergies you have and all medications and herbal supplements you take. Gardasil is given to those ages 9-14 in 2 doses at 0 and 8 months. In ages 15-45, three injections are given at 0,2,6 months. Common side effects include pain, redness, itching and swelling at the injection site, nausea, fever, dizziness and fainting. Rare but potentially serious reactions have been reported. These include allergic reaction, swollen glands, joint and muscle pain, weakness and Guillain-[place] syndrome. documented in this encounter [facility] 11-23-2021 History of Present illness Narrative Florencia Sena is a 31 year old female who presents for vaginal pruritis, burning, discharge, swelling and fishy odor for 1 week(s). Urine culture 11/14/2021 negative and currently has no urinary symptoms. Right breast pain x 1 month. Though maybe she pulled a muscle because area was hard. Pain heavy and burning to inner right breast. Symptoms have improved 50%. Pain worse with movement. Tries to wear bras without wires.Caffeine - 3 servings a day. Family history of breast cancer. Vaginal discharge: creamy white with yellow tint. Itching: YES intermittent Dyspareunia: N/A Fever/chills: No Abdominal pain: No Bladder: Negative for dysuria or frequency Bowel: No blood in stool, pain with BM, tarry stool, persistent diarrhea or constipation Any new sexual partners or concern for STD exposure: No Any history of STDs: chlamydia Does your partner have any new complaints: No Are you currently taking any medications to treat vaginitis: No Do you use feminine sprays, douches or deodorants: No Menstrual cycle: no menses - Mirena IUD Contraception: IUD Last pap: 2020, ASCUS, HPV negative Past medical, surgical, social history, medications and allergies reviewed and updated. OBJECTIVE: BP 102/64 Wt 139 lb (63.1kg) LMP 11/22/2016 GENERAL: Well developed, well nourished, Thin in no apparent distress BREAST: symmetric, no dominant masses, no nipple DC and no supraclavicular or axillary lymph nodes + tenderness to inner right breast ABDOMEN: soft, non-tender and no masses PELVIC: external genitalia normal, normal Bartholin's glands, urethra, [place]'s glands, no vulvar lesions, no cervical lesions, good vaginal support, physiologic discharge present, normal appearing perineal body and perianal region BIMANUAL: uterus normal size, shape and consistency, no adnexal masses and non-tender. ASSESSMENT/PLAN: 1. Acute vaginitis - ICD9: 616.10, ICD10: N76.0 (primary diagnosis) - BACT/LISA VAG GRAM STAIN - TRICHOMONAS PREP/ANTIGEN - GC/CHLAMYDIA DNA DET - Vulvar hygiene instructions. 2. Mastalgia - ICD9: 611.71, ICD10: N64.4 - DAVID DIAGNOSTIC RT - US BREAST LTD RT - decrease/eliminate caffeine use. Wear support bra, no underwire 3. Screen for STD (sexually transmitted disease) - ICD9: V74.5, ICD10: Z11.3 - TRICHOMONAS PREP/ANTIGEN - GC/CHLAMYDIA DNA DET 4. Need for prophylactic vaccination/inoculation against viral disease - ICD9: V04.89, ICD10: Z23 - THER/PROPH/DIAG INJ, SC/IM - HUMAN PAPILLOMAVIRUS 9-VALENT HPV IM - HUMAN PAPILLOMAVIRUS 9-VALENT HPV IM - HUMAN PAPILLOMAVIRUS 9-VALENT HPV IM Will notify of results. Follow- up as needed. Cee Marshall APRN.ASSEMBLER TUBING Medical Decision Making: Problems: Low: Acute, uncomplicated illness or injury Data: Unique test(s) ordered: 3+ Medical Decision Making Level: 3 - Low Patient identified by name and date of . Florencia Sena is here for her HPV 9 vaccination, injection # one of the series. Patient ?No Gardasil injection was given without incident. See immunizations for details of immunizations administered today. VIS sheet provided: Yes Patient advised to follow up in 2 months from the 1st injection Provider Cee Marshall CNP was present in office at time of injection. Agustina Wyman MA documented in this encounter [facility] 11-23-2021 Miscellaneous Notes Patient called and appointment scheduled. Ashleigh Aguilar RN documented in this encounter [facility] 11-15-2021 Miscellaneous Notes Pt called per myself - continues to have bladder pressure and pain with urination although less pain with AZO. UA positive nitrites, negative leuks. Bactrim prescribed. Urine culture pending. Cee Marshall APRN.CNP t documented in this encounter [facility] 06-04-2014 History of Past i llness Narrative Problem Noted Date Resolved Date Hyperemesis gravidarum, antepartum 06/04/2014 12/12/2016 Supervision of other normal 04/29/2014 12/12/2016 Overview: xx Adjustment reaction 12/12/2016 documented as of this encounter (statuses as of 11/15/2021) [facility] History of Past illness Narrative* Problem Noted Date Resolved Date Hyperemesis gravidarum, antepartum 06/04/2014 12/12/2016 Supervision of other normal 04/29/2014 12/12/2016 Overview: xx Adjustment reaction 12/12/2016 documented as of this encounter (statuses as of 11/23/2021) [facility] History of Past illness Narrative* Problem Noted Date Resolved Date Hyperemesis gravidarum, antepartum 06/04/2014 12/12/2016 Supervision of other normal 04/29/2014 12/12/2016 Overview: xx Adjustment reaction 12/12/2016 documented as of this encounter (statuses as of 11/23/2021) [facility] History of Past illness Narrative* Problem Noted Date Resolved Date Hyperemesis gravidarum, antepartum 06/04/2014 12/12/2016 Supervision of other normal 04/29/2014 12/12/2016 Overview: xx Adjustment reaction 12/12/2016 documented as of this encounter (statuses as of 11/29/2021) [facility] of Past illness Narrative* Problem Noted Date Resolved Date Hyperemesis gravidarum, antepartum 06/04/2014 12/12/2016 Supervision of other normal 04/29/2014 12/12/2016 Overview: xx Adjustment reaction 12/12/2016 documented as of this encounter (statuses as of 01/09/2022) [facility] of Past illness Narrative* Problem Noted Date Resolved Date Hyperemesis gravidarum, antepartum 06/04/2014 12/12/2016 Supervision of other normal 04/29/2014 12/12/2016 Overview: xx Adjustment reaction 12/12/2016 documented as of this encounter (statuses as of 02/12/2022) [facility] of Past illness Narrative* Problem Noted Date Resolved Date Hyperemesis gravidarum, antepartum 06/04/2014 12/12/2016 Supervision of other normal 04/29/2014 12/12/2016 Overview: xx Adjustment reaction 12/12/2016 documented as of this encounter (statuses as of 07/26/2022) [facility] of Past illness Narrative* Problem Noted Date Resolved Date Hyperemesis gravidarum, antepartum 06/04/2014 12/12/2016 Supervision of other normal 04/29/2014 12/12/2016 Overview: xx Adjustment reaction 12/12/2016 documented as of this encounter (statuses as of 08/02/2022) [facility] illness Narrative* Problem Noted Date Resolved Date Hyperemesis gravidarum, antepartum 06/04/2014 12/12/2016 Supervision of other normal 04/29/2014 12/12/2016 Overview: xx Adjustment reaction 12/12/2016 documented as of this encounter (statuses as of 10/30/2022) [facility] of Past illness Narrative* Problem Noted Date Resolved Date Hyperemesis gravidarum, antepartum 06/04/2014 12/12/2016 Supervision of other normal 04/29/2014 12/12/2016 Overview: xx Adjustment reaction 12/12/2016 documented as of this encounter (statuses as of 11/01/2022) [facility] illness Narrative* Problem Noted Date Resolved Date Hyperemesis gravidarum, antepartum 06/04/2014 12/12/2016 Supervision of other normal 04/29/2014 12/12/2016 Overview: xx Adjustment reaction 12/12/2016 documented as of this encounter (statuses as of 11/01/2022) [facility] illness Narrative* Problem Noted Date Diagnosed Date Resolved Date Hyperemesis gravidarum, antepartum 06/04/2014 12/12/2016 Supervision of other normal 04/29/2014 12/12/2016 Overview: xx Adjustment reaction 12/13/19 17 documented as of this encounter (statuses as of 01/24/2023) [facility] illness Narrative* Problem Noted Date Diagnosed Date Resolved Date Hyperemesis gravidarum, antepartum 06/04/2014 12/12/2016 Supervision of other normal 04/29/2014 12/12/2016 Overview: xx Adjustment reaction 12/13/19 17 documented as of this encounter (statuses as of 04/28/2023) [facility] Narrative* Problem Noted Date Diagnosed Date Resolved Date Hyperemesis gravidarum, antepartum 06/04/2014 12/12/2016 Supervision of other normal 04/29/2014 12/12/2016 Overview: xx Adjustment reaction 12/13/19 17 documented as of this encounter (statuses as of 06/07/2023) [facility] N[facility]ative* Problem Noted Date Diagnosed Date Resolved Date Hyperemesis gravidarum, antepartum 06/04/2014 12/12/2016 Supervision of other normal 04/29/2014 12/12/2016 Overview: xx Adjustment reaction 12/13/19 17 documented as of this encounter (statuses as of 06/09/2023) [facility] Narrative* Problem Noted Date Diagnosed Date Resolved Date Hyperemesis gravidarum, antepartum 06/04/2014 12/12/2016 Supervision of other normal 04/29/2014 12/12/2016 Overview: xx Adjustment reaction 12/13/19 17 documented as of this encounter (statuses as of 08/23/2023) [facility] Narrative* Problem Noted Date Diagnosed Date Resolved Date Hyperemesis gravidarum, antepartum 06/04/2014 12/12/2016 Supervision of other normal 04/29/2014 12/12/2016 Overview: xx Adjustment reaction 12/13/19 17 documented as of this encounter (statuses as of 09/04/2023) [facility] Narrative* Problem Noted Date Diagnosed Date Resolved Date Hyperemesis gravidarum, antepartum 06/04/2014 12/12/2016 Supervision of other normal 04/29/2014 12/12/2016 Overview: xx Adjustment reaction 12/13/19 17 documented as of this encounter (statuses as of 09/05/2023) [facility] Acute vaginitis- Primary Vaginitis and vulvovaginitis, unspecified Mastalgia Mastodynia Screen for STD (sexually transmitted disease) Screening examination for venereal disease Need for prophylactic vaccination/inoculation against viral disease Need for prophylactic vaccination and inoculation against other viral diseases [facility] Diagnosis Mastalgia Mastodynia [facility] Diagnosis Anxiety- Primary Anxiety state, unspecified [facility] Diagnosis Labial lesion Other specified noninflammatory disorder of vulva and perineum [facility] Diagnosis Sore throat- Primary Acute pharyngitis Exposure to strep throat Contact with or exposure to other communicable diseases [facility] Diagnosis Mastalgia- Primary Mastodynia [facility] Diagnosis Sore throat- Primary Acute pharyngitis Nausea and vomiting, unspecified vomiting type [facility]* Diagnosis Viral URI- Primary Acute upper respiratory infections of unspecified site [facility] Diagnosis Mass of right breast, unspecified quadrant- Primary [facility] Diagnosis Mass of right breast, unspecified quadrant [facility] Diagnosis Viral URI- Primary Acute upper respiratory infections of unspecified site Sore throat Acute pharyngitis [facility] Diagnosis Viral illness- Primary Unspecified viral infection, in conditions classified elsewhere and of unspecified site [facility] Diagnosis Encounter for gynecological examination (general) (routine) without abnormal findings- Primary Screening for cervical cancer Screening for malignant neoplasm of the cervix Encounter for screening for human papillomavirus (HPV) Special screening examination for human papillomavirus (HPV) [facility] Diagnosis Labial lesion Other specified noninflammatory disorder of vulva and perineum [facility] Diagnosis Labial lesion Other specified noninflammatory disorder of vulva and perineum [facility] Diagnosis Chronic bilateral low back pain without sciatica- Primary Chronic bilateral thoracic back pain Eustachian tube dysfunction, right [facility] Diagnosis Chronic bilateral low back pain without sciatica- Primary Chronic bilateral thoracic back pain documented in this encounter [facility] note* Diagnosis Well adult exam- Primary Routine general medical examination at a health care facility Anxiety Anxiety state, unspecified Screening for lipid disorders documented in this encounter [facility] note* Diagnosis Abnormal ultrasound of breast Other (abnormal) findings on radiological examination of breast documented in this encounter [facility] note* Diagnosis Left ear pain- Primary Otalgia, unspecified documented in this encounter [facility] noteNo assessment information availableWZanesville [facility] Work Phone: [facility]* Diagnosis Labial lesion Other specified noninflammatory disorder of vulva and perineum documented in this encounter [facility] note* Diagnosis Influenza- Primary Influenza with other respiratory manifestations documented in this encounter [facility] note* Diagnosis Acute cough Nausea and vomiting, unspecified vomiting type documented in this encounter [facility] note* Diagnosis Acute cough- Primary Nausea and vomiting, unspecified vomiting type Acute cough Nausea and vomiting, unspecified vomiting type documented in this encounter [facility] note* Diagnosis Dysuria- Primary Encounter for IUD removal and reinsertion Encounter for removal and reinsertion of intrauterine contraceptive device Vaginal irritation Unspecified noninflammatory disorder of vagina Cervical cancer screening Screening for malignant neoplasm of the cervix Special screening examination for human papillomavirus (HPV) documented in this encounter [facility] note* Diagnosis Labial lesion Other specified noninflammatory disorder of vulva and perineum documented in this encounter [facility] note* Diagnosis Non-recurrent acute serous otitis media of left ear documented in this encounter [facility] for referral (narrative)* Diagnostic Procedure Only (Routine) - Pending Review Specialty Diagnoses / Procedures Referred By Nadeem poole Referred To Contact [facility] Diagnoses Mastalgia Procedures US BREAST LTD RT US BREAST UNI REAL TIME WITH IMAGE LIMITED Cee Marshall APRN.[employer]SEM[employer]ER [employer] [address] [place] [address] [facility] [address] [facility] [place] [address] Referral ID Status Reason Start Date Expiration Date Visits Requested Visits Authorized [id number] Pending Review Auto-Generat ed Referral 11/23/2021 12/23/2022 1 1 * Diagnostic Procedure Only (Routine) - Pending Review Specialty Diagnoses / Procedures Referred By Nadeem t Referred To Contact [facility] Diagnoses Mastalgia Procedures DAVID DIAGNOSTIC RT DIAGNOSTIC MAMMOGRAPHY COMPUTER-AIDED DETCJ Cee Cook APRN.[employer]SEM[employer] [address] [place] [address] [facility] [address] [place] [address] Referral ID Status Reason Start Date Expiration Date Visits Requested Visits Authorized [id number] Pending Review Auto-Generat ed Referral 11/23/2021 12/23/2022 1 1 [facility] for referral (narrative)* Diagnostic Procedure Only (Routine) - Closed Specialty Diagnoses / Procedures Referred By Contac t Referred To Contact [facility] Diagnoses Mastalgia Procedures US BREAST LTD RT US BREAST UNI REAL TIME WITH IMAGE LIMITED Cee Marshall APRN.[employer] [address] [place] [address] [facility] [address] [place] [address] Referral ID Status Reason Start Date Expiration Date V isits Requested Visits Authorized [id number] Closed Auto-Generate d Referral 11/23/2021 12/23/2022 1 1 [facility] for referral (narrative)* Diagnostic Procedure Only (Routine) - Pending Review Specialty Diagnoses / Procedures Referred By Contac t Referred To Contact [facility] Diagnoses Mastalgia Procedures US BREAST LTD RT US BREAST UNI REAL TIME WITH IMAGE LIMITED Celia Lombardo APRN.CNM [address] [place] [address] [facility] [address] [place] [address] Referral ID Status Reason Start Date Expiration Date Visits Requested Visits Authorized [id number] Pending Review Auto-Generat ed Referral 01/30/2023 09/01/2023 1 1 [facility] for referral (narrative)* Diagnostic Procedure Only (Routine) - Pending Review Specialty Diagnoses / Procedures Referred By Contac t Referred To Contact [facility] Diagnoses Mass of right breast, unspecified quadrant Procedures DAVID DIAGNOSTIC RIGHT DIAGNOSTIC MAMMOGRAPHY COMPUTER-AIDED DETCJ Cee Cook APRN.[employer]SEM[employer] [address] [place] [place] [address] [facility] [address] [place] [address] Referral ID Status Reason Start Date Expiration Date Visits Requested Visits Authorized [id number] Pending Review Auto-Generat ed Referral 01/22/2023 02/21/2024 1 1 [facility] for visit Narrative* Diagnostic Procedure Only (Routine) - Closed Specialty Diagnoses / Procedures Referred By Contac t Referred To Contact [facility] Diagnoses Mass of right breast, unspecified quadrant Procedures DAVID DIAGNOSTIC RIGHT DIAGNOSTIC MAMMOGRAPHY COMPUTER-AIDED DETCJ Cee Cook APRN.[employer]SEM[employer] [address] [place] [place] [address] [facility] [address] [place] [address] Referral ID Status Reason Start Date Expiration Date V isits Requested Visits Authorized [id number] Closed Auto-Generate d Referral 01/22/2023 02/21/2024 1 1 [facility] for visit Narrative* Diagnostic Procedure Only (Routine) - Closed Specialty Diagnoses / Procedures Referred By Contac t Referred To Contact [facility] Diagnoses Abnormal ultrasound of breast Procedures US BIOPSY BREAST RIGHT BX BREAST W/DEVICE 1ST LESION ULTRASOUND Kelly Celis MD [address] [place] [address] [facility] [address] [place] [address] Referral ID Status Reason Start Date Expiration Date V isits Requested Visits Authorized [id number] Closed Auto-Generate d Referral 03/05/2023 04/03/2024 1 1 [facility] Diagnostic Procedure Only (Routine) - Closed Specialty Diagnoses / Procedures Referred By Nadeem poole Referred To Contact [facility] Diagnoses Abnormal ultrasound of breast Procedures DAVID DIAGNOSTIC BILATERAL DIAGNOSTIC MAMMOGRAPHY COMPUTER-AIDED DETCJ Kelly Krishna MD [address] [place] [address] [facility] [address] [place] [address] Referral ID Status Reason Start Date Expiration Date V isits Requested Visits Authorized [id number] Closed Auto-Generate d Referral 09/05/2023 10/04/2024 1 1 [facility] Concerns Infection Onset Date Last Indicated Resolved Time COVID-19 Rule-Out 07/25/2022 07/25/2022 Infection Onset Date Last Indicated Resolved Time COVID-19 Rule-Out 10/31/2022 10/31/2022 Infection Onset Date Last Indicated Resolved Time COVID-19 Rule-Out 10/31/2022 10/31/2022 11/01/2022 4:42 AM EDT Infection Onset Date Last Indicated Resolved Time COVID-19 Rule-Out 06/09/2023 06/09/2023 Reason for Referral Specialty Diagnoses / Procedures Referred By Nadeem poole Referred To Contact [facility] Diagnoses Chronic bilateral low back pain without sciatica Chronic bilateral thoracic back pain Procedures CONSULT TO PHYSICAL THERAPY PHYSICAL THERAPY EVALUATION HIGH COMPLEX 45 MINS Rina Espinal PA-C [address] [place] [address] [facility] [address] [place] [address] Referral ID Status Reason Start Date Expiration Date Visits Requested Visits Authorized [id number] Authorized Auto-Generat ed Referral 06/24/2023 06/23/2024 30 30 Summary Purpose Family History No Family History Records Found Relationship Condition Age at Onset Recorded Date/T olivia grandmother Malignant neoplasm of breast Unknown Advance Directives No Advanced Directives Records Found Advance Directive Response Recorded Date/ Time Living Will No June 09 023 6:19pm Power of Telemetry Tech No June 09, 2023 6:19pm Chief Complaint and Reason for Visit Chief Complaint general Additional Source Comments Source Comments (unrecognize d section and content) In the event this informatio n is protected by the Federal Confidentiality of Alcohol and Drug Abuse Patient Records regulations: The Federal rules restrict any use of the information to criminally investigate or prosecute any alcohol or drug abuse patient.[facility] the event this information is protected by the Federal Confidentiality of Alcohol and Drug Abuse Patient Records regulations: The Federal rules restrict any use of the information to criminally investigate or prosecute any alcohol or drug abuse patient.[facility] the event this information is protected by the Federal Confidentiality of Alcohol and Drug Abuse Patient Records regulations: The Federal rules restrict any use of the information to criminally investigate or prosecute any alcohol or drug abuse patient.[facility] the event this information is protected by the Federal Confidentiality of Alcohol and Drug Abuse Patient Records regulations: The Federal rules restrict any use of the information to criminally investigate or prosecute any alcohol or drug abuse patient.[facility] the event this information is protected by the Federal Confidentiality of Alcohol and Drug Abuse Patient Records regulations: The Federal rules restrict any use of the information to criminally investigate or prosecute any alcohol or drug abuse patient.[facility] the event this information is protected by the Federal Confidentiality of Alcohol and Drug Abuse Patient Records regulations: The Federal rules restrict any use of the information to criminally investigate or prosecute any alcohol or drug abuse patient.[facility] the event this information is protected by the Federal Confidentiality of Alcohol and Drug Abuse Patient Records regulations: The Federal rules restrict any use of the information to criminally investigate or prosecute any alcohol or drug abuse patient.[facility] the event this information is protected by the Federal Confidentiality of Alcohol and Drug Abuse Patient Records regulations: The Federal rules restrict any use of the information to criminally investigate or prosecute any alcohol or drug abuse patient.[facility] the event this information is protected by the Federal Confidentiality of Alcohol and Drug Abuse Patient Records regulations: The Federal rules restrict any use of the information to criminally investigate or prosecute any alcohol or drug abuse patient.[facility] the event this information is protected by the Federal Confidentiality of Alcohol and Drug Abuse Patient Records regulations: The Federal rules restrict any use of the information to criminally investigate or prosecute any alcohol or drug abuse patient.[facility] the event this information is protected by the Federal Confidentiality of Alcohol and Drug Abuse Patient Records regulations: The Federal rules restrict any use of the information to criminally investigate or prosecute any alcohol or drug abuse patient.[facility] the event this information is protected by the Federal Confidentiality of Alcohol and Drug Abuse Patient Records regulations: The Federal rules restrict any use of the information to criminally investigate or prosecute any alcohol or drug abuse patient.[facility] the event this information is protected by the Federal Confidentiality of Alcohol and Drug Abuse Patient Records regulations: The Federal rules restrict any use of the information to criminally investigate or prosecute any alcohol or drug abuse patient.[facility] the event this information is protected by the Federal Confidentiality of Alcohol and Drug Abuse Patient Records regulations: The Federal rules restrict any use of the information to criminally investigate or prosecute any alcohol or drug abuse patient.[facility] the event this information is protected by the Federal Confidentiality of Alcohol and Drug Abuse Patient Records regulations: The Federal rules restrict any use of the information to criminally investigate or prosecute any alcohol or drug abuse patient.[facility] the event this information is protected by the Federal Confidentiality of Alcohol and Drug Abuse Patient Records regulations: The Federal rules restrict any use of the information to criminally investigate or prosecute any alcohol or drug abuse patient.[facility] Center[facility] the event this information is protected by the Federal Confidentiality of Alcohol and Drug Abuse Patient Records regulations: The Federal rules restrict any use of the information to criminally investigate or prosecute any alcohol or drug abuse patient.[facility] Center[facility] the event this information is protected by the Federal Confidentiality of Alcohol and Drug Abuse Patient Records regulations: The Federal rules restrict any use of the information to criminally investigate or prosecute any alcohol or drug abuse patient.[facility] CenterIn the event this information is protected by the Federal Confidentiality of Alcohol and Drug Abuse Patient Records regulations: The Federal rules restrict any use of the information to criminally investigate or prosecute any alcohol or drug abuse patient.[facility] CenterIn the event this information is protected by the Federal Confidentiality of Alcohol and Drug Abuse Patient Records regulations: The Federal rules restrict any use of the information to criminally investigate or prosecute any alcohol or drug abuse patient.[facility] the event this information is protected by the Federal Confidentiality of Alcohol and Drug Abuse Patient Records regulations: The Federal rules restrict any use of the information to criminally investigate or prosecute any alcohol or drug abuse patient.[facility] CenterIn the event this information is protected by the Federal Confidentiality of Alcohol and Drug Abuse Patient Records regulations: The Federal rules restrict any use of the information to criminally investigate or prosecute any alcohol or drug abuse patient.[facility] the event this information is protected by the Federal Confidentiality of Alcohol and Drug Abuse Patient Records regulations: The Federal rules restrict any use of the information to criminally investigate or prosecute any alcohol or drug abuse patient.[facility] the event this information is protected by the Federal Confidentiality of Alcohol and Drug Abuse Patient Records regulations: The Federal rules restrict any use of the information to criminally investigate or prosecute any alcohol or drug abuse patient.[facility] the event this information is protected by the Federal Confidentiality of Alcohol and Drug Abuse Patient Records regulations: The Federal rules restrict any use of the information to criminally investigate or prosecute any alcohol or drug abuse patient.[facility] the event this information is protected by the Federal Confidentiality of Alcohol and Drug Abuse Patient Records regulations: The Federal rules restrict any use of the information to criminally investigate or prosecute any alcohol or drug abuse patient.[facility]In the event this information is protected by the Federal Confidentiality of Alcohol and Drug Abuse Patient Records regulations: The Federal rules restrict any use of the information to criminally investigate or prosecute any alcohol or drug abuse patient.[facility]In the event this information is protected by the Federal Confidentiality of Alcohol and Drug Abuse Patient Records regulations: The Federal rules restrict any use of the information to criminally investigate or prosecute any alcohol or drug abuse patient.[facility]In the event this information is protected by the Federal Confidentiality of Alcohol and Drug Abuse Patient Records regulations: The Federal rules restrict any use of the information to criminally investigate or prosecute any alcohol or drug abuse patient.[facility] CenterIn the event this information is protected by the Federal Confidentiality of Alcohol and Drug Abuse Patient Records regulations: The Federal rules restrict any use of the information to criminally investigate or prosecute any alcohol or drug abuse patient.[facility] CenterIn the event this information is protected by the Federal Confidentiality of Alcohol and Drug Abuse Patient Records regulations: The Federal rules restrict any use of the information to criminally investigate or prosecute any alcohol or drug abuse patient.[facility] CenterIn the event this information is protected by the Federal Confidentiality of Alcohol and Drug Abuse Patient Records regulations: The Federal rules restrict any use of the information to criminally investigate or prosecute any alcohol or drug abuse patient.[facility] CenterIn the event this information is protected by the Federal Confidentiality of Alcohol and Drug Abuse Patient Records regulations: The Federal rules restrict any use of the information to criminally investigate or prosecute any alcohol or drug abuse patient.[facility] CenterIn the event this information is protected by the Federal Confidentiality of Alcohol and Drug Abuse Patient Records regulations: The Federal rules restrict any use of the information to criminally investigate or prosecute any alcohol or drug abuse patient.[facility] CenterIn the event this information is protected by the Federal Confidentiality of Alcohol and Drug Abuse Patient Records regulations: The Federal rules restrict any use of the information to criminally investigate or prosecute any alcohol or drug abuse patient.[facility] CenterIn the event this information is protected by the Federal Confidentiality of Alcohol and Drug Abuse Patient Records regulations: The Federal rules restrict any use of the information to criminally investigate or prosecute any alcohol or drug abuse patient.[facility] CenterIn the event this information is protected by the Federal Confidentiality of Alcohol and Drug Abuse Patient Records regulations: The Federal rules restrict any use of the information to criminally investigate or prosecute any alcohol or drug abuse patient.[facility] CenterIn the event this information is protected by the Federal Confidentiality of Alcohol and Drug Abuse Patient Records regulations: The Federal rules restrict any use of the information to criminally investigate or prosecute any alcohol or drug abuse patient.[facility] CenterIn the event this information is protected by the Federal Confidentiality of Alcohol and Drug Abuse Patient Records regulations: The Federal rules restrict any use of the information to criminally investigate or prosecute any alcohol or drug abuse patient.[facility] CenterIn the event this information is protected by the Federal Confidentiality of Alcohol and Drug Abuse Patient Records regulations: The Federal rules restrict any use of the information to criminally investigate or prosecute any alcohol or drug abuse patient.[facility] CenterIn the event this information is protected by the Federal Confidentiality of Alcohol and Drug Abuse Patient Records regulations: The Federal rules restrict any use of the information to criminally investigate or prosecute any alcohol or drug abuse patient.[facility] Reason for Visit (unrecogniz ed section and content) Reason Comments Results New Medication Reason Onset Date Comments Vaginal Problem Gardasil Injection 11/23/2021 Radiology Mammogram 11/23/2021 at [facility] Reason Comments Radiology US Specialty Diagnoses / Procedures Referred By Nadeem t Referred To Contact [facility] Diagnoses Mastalgia Procedures US BREAST LTD RT US BREAST UNI REAL TIME WITH IMAGE LIMITED Cee Marshall APRN.ASSEMBLER TUBING [address] [place] [address] [facility] [address] [place] [address] Referral ID Status Reason Start Date Expiration Date V isits Requested Visits Authorized [id number] Closed Auto-Generate d Referral 11/23/2021 12/23/2022 1 1 Reason Comments Sore Throat strep exposure x 1 d ay Reason Comments Sore Throat nausea and vomiting x today Reason Comments Nausea Congestion, ALVARADO x 3 d ays Reason Comments Results Reason Comments Orders Reason Comments Sore Throat ST and cough x 2 day s Reason Comments Cough R ear pain, congesti on x5 days Reason Comments Yearly Exam Reason Comments Patient Update Reason Comments Refill Request Reason Comments Same Day Appointment lower back pain x 2 months Reason Comments PT Progress Note Specialty Diagnoses / Procedures Referred By Contac t Referred To Contact PHYSICAL THERAPY Diagnoses Chronic bilateral low back pain without sciatica Chronic bilateral thoracic back pain Procedures CONSULT TO PHYSICAL THERAPY PHYSICAL THERAPY EVALUATION HIGH COMPLEX 45 MINS Rina Espinal PA-C [address] [place] [address] Pt [facility] [address] [place] [address] Referral ID Status Reason Start Date Expiration Date Visits Requested Visits Authorized [id number] Authorized Auto-Generat ed Referral 06/24/2023 06/23/2024 30 30 Reason Comments Follow Up Reason Comments Ear Pain L ear pain x last ni ght, vomited this morning Reason Comments Chest Pain Reason Onset Date Comments Refill Request 06/20/2024 Reason Comments Cough Cough, chills, ALVARADO, s inus and congestion x 1 day Reason Comments URI With intermittent di arrhea/vomiting x1 week Reason Comments Well Woman Reason Onset Date Comments Refill Request 10/13/2024 Reason Comments Ear Pain left increased last night Care Teams (unrecognized sec tion and content) Consulting Technical Director Relationship Specialty Start Date End Date Richard Mcclain MD [address] [place] [address] PCP - General Family Practice 01/15/14 Consulting Technical Director Relationship Specialty Start Date End Date Richard Mcclain MD [address] [place], [place] [id number] PCP - General Family Practice 01/15/14 Consulting Technical Director Relationship Specialty Start Date End Date Richard Mcclain MD [address] [place] [address] PCP - General Family Practice 01/15/14 Consulting Technical Director Relationship Specialty Start Date End Date Richard Mcclain MD [address] [place] [address] PCP - General Family Practice 01/15/14 Consulting Technical Director Relationship Specialty Start Date End Date Richard Mcclain MD [address] [place] [address] PCP - General Family Practice 01/15/14 Consulting Technical Director Relationship Specialty Start Date End Date Richard Mcclain MD [address] [place] [address] PCP - General Family Medicine 01/15/14 Consulting Technical Director Relationship Specialty Start Date End Date Richard Mcclain MD [address] [place] [address] PCP - General Family Medicine 01/15/14 Consulting Technical Director Relationship Specialty Start Date End Date Richard Mcclain MD [address] [place] [address] PCP - General Family Medicine 01/15/14 Consulting Technical Director Relationship Specialty Start Date End Date Richard Mcclain MD [address] [place] [address] PCP - General Family Medicine 01/15/14 Consulting Technical Director Relationship Specialty Start Date End Date Richard Mcclain MD [address] [place] [address] PCP - General Family Medicine 01/15/14 Consulting Technical Director Relationship Specialty Start Date End Date Richard Mcclain MD [address] [place] [address] PCP - General Family Medicine 01/15/14 Consulting Technical Director Relationship Specialty Start Date End Date Richard Mcclain MD [address] [place] [address] PCP - General Family Medicine 01/15/14 Consulting Technical Director Relationship Specialty Start Date End Date Richard Mcclain MD [address] [place] [address] PCP - General Family Medicine 01/15/14 Consulting Technical Director Relationship Specialty Start Date End Date Richard Mcclain MD [address] [place] [address] PCP - General Family Medicine 01/15/14 Consulting Technical Director Relationship Specialty Start Date End Date Richard Mcclain MD [address] [place] [address] PCP - General Family Medicine 01/15/14 Consulting Technical Director Relationship Specialty Start Date End Date Richard Mcclain MD [address] [place] [address] PCP - General Family Medicine 01/15/14 Consulting Technical Director Relationship Specialty Start Date End Date Richard Mcclain MD [address] [place] [address] PCP - General Family Medicine 01/15/14 Consulting Technical Director Relationship Specialty Start Date End Date Richard Mcclain MD [address] [place] [address] PCP - General Family Medicine 01/15/14 Consulting Technical Director Relationship Specialty Start Date End Date Richard Mcclain MD [address] [place] [address] PCP - General Family Medicine 01/15/14 Consulting Technical Director Relationship Specialty Start Date End Date Richard Mcclain MD [address] [facility], [place] [address] PCP - General Family Medicine 01/15/14 Consulting Technical Director Relationship Specialty Start Date End Date Richard Mcclain MD [address] [place], [place] [address] PCP - General Family Medicine 01/15/14 Consulting Technical Director Relationship Specialty Start Date End Date Richard Mcclain MD [address] [place], [place] [address] PCP - General Family Medicine 01/15/14 Consulting Technical Director Relationship Specialty Start Date End Date Richard Mcclain MD [address] [place], [place] [id number] PCP - General Family Medicine 01/15/14 Team Status: Active Member Role Status Dates Dr. Richard Mcclain MD Family Provider Active Dr. Richard Mcclain MD Primary Care Provider Active Team Status: Inactive Member Role Status Dates Dr. Richard Mcclain MD Primary Care Provider Active Dr. Jaron Castaneda , DO Emergency Provider Active Consulting Technical Director Relationship Specialty Start Date End Date Richard Mcclain MD [address] [place] [address] PCP - General Family Medicine 01/15/14 Palma Merida APRN.CNP [address] [place] [address] [employer] [facility] 06/01/24 Consulting Technical Director Relationship Specialty Start Date End Date Richard Mcclain MD [address] [place] [address] PCP - General Family Medicine 01/15/14 Palma Merida APRN.ASSEMBLER TUBING [address] [place] [address] [employer] Family Medicine 06/01/24 Zee Mcclellan APRN.ASSEMBLER TUBING [address] [place] [address] [employer] [facility] 06/01/24 Consulting Technical Director Relationship Specialty Start Date End Date Richard Mcclain MD [address] [place] [address] PCP - General Family Medicine 01/15/14 Palma Merida APRN.ASSEMBLER TUBING [address] [facility] [place] [address] [employer] [facility] 06/01/24 Zee Mcclellan APRN.ASSEMBLER TUBING [address] [place] [address] [employer] [facility] 06/01/24 Consulting Technical Director Relationship Specialty Start Date End Date Richard Mcclain MD [address] [place] [address] PCP - General Family Medicine 01/15/14 Palma Merida APRN.ASSEMBLER TUBING [address] [facility] [place] [address] [employer] Family [facility] 06/01/24 Zee Mcclellan APRN.ASSEMBLER TUBING [address] [place] [address] [employer] Family [facility] 06/01/24 Consulting Technical Director Relationship Specialty Start Date End Date Richard Mcclain MD [address] [place] [address] PCP - General Family Medicine 01/15/14 Palma Merida APRN.ASSEMBLER TUBING [address] [facility] [place] [address] [employer] [facility] 06/01/24 Zee Mcclellan MARKETING TECHNOLOGIST.ASSEMBLER TUBING [address] [facility] [place] [address] [facility] 06/01/24 Consulting Technical Director Relationship Specialty Start Date End Date Richard Mcclain MD [address] [facility] [place] [address] PCP - General Family Medicine 01/15/14 Palam Merida MARKETING TECHNOLOGIST.ASSEMBLER TUBING [address] [facility] [place] [address] [facility] 06/01/24 Zee Mcclellan MARKETING TECHNOLOGIST.ASSEMBLER TUBING [address] [facility] [place] [address] [facility] 06/01/[facility] Consulting Technical Director Relationship Specialty Start Date End Date Richard Mcclain MD [address] [facility] [place] [address] PCP - General Family Medicine 01/15/14 Palma Merida MARKETING TECHNOLOGIST.ASSEMBLER TUBING [address] [facility] [place] [address] [facility] 06/01/24 Zee Mcclellan APRN.ASSEMBLER TUBING [address] [place] [address] [facility] 06/01/24 Consulting Technical Director Relationship Specialty Start Date End Date Richard Mcclain MD [address] [place] [address] PCP - General Family Medicine 01/15/14 Palma Merida APRN.ASSEMBLER TUBING [address] [facility] [place] [address] [facility] 06/01/24 Zee Mcclellan APRN.ASSEMBLER TUBING [address] [place] [address] [facility] 06/01/24 Consulting Technical Director Relationship Specialty Start Date End Date Richard Mcclain MD [address] [place] [address] PCP - General Family Medicine 01/15/14 Palma Merida APRN.ASSEMBLER TUBING [address] [facility] [place] [address] [facility] 06/01/24 Zee Mcclellan MARKETING TECHNOLOGIST.ASSEMBLER TUBING [address] [place] [address] [facility] 06/01/24 Consulting Technical Director Relationship Specialty Start Date End Date Richard Mcclain MD [address] [place] [address] PCP - General Family Medicine 01/15/14 Palma Merida APRN.ASSEMBLER TUBING [address] [facility], [place] [address] [facility] 06/01/24 Zee Mcclellan APRN.ASSEMBLER TUBING [address] [facility] [place] [address] [facility] 06/01/24 Consulting Technical Director Relationship Specialty Start Date End Date Richard Mcclain MD [address] [facility], [place] [address] PCP - General [facility] 01/15/14 Palma Merida APRN.ASSEMBLER TUBING [address] [facility], [place] [address] [facility] 06/01/24 Zee Mcclellan APRN.ASSEMBLER TUBING [address] [facility], [place] [address] [facility] 06/01/24 INFORMATION SOURCE (unrecogn ized section and content) DATE CREATED AUTHOR 01/13/2024 [facility] DATE CREATED AUTHOR AUTHOR'S ORGANIZ ATION 04/06/2024 [facility] DATE CREATED AUTHOR AUTHOR'S ORGANIZ ATION 02/18/2025 [facility] Goals (unrecognized section and content) Goals may be documented in a n alternate section FOR RECORDS PERTAINING TO PATIENTS WHO ARE OR HAVE BEEN ENROLLED IN A CHEMICAL DEPENDENCY/SUBSTANCEABUSE PROGRAM, SOME INFORMATION MAY BE OMITTED. This clinical summary was aggregated from multiple sources. Caution should be exercised in using it in the provision of clinical care. This summary normalizes information from multiple sources, and as a consequence, information in this document may materially change the coding, format and clinical context of patient data. In addition, data may be omitted in some cases. CLINICAL DECISIONS SHOULD BE BASED ON THE PRIMARY CLINICAL RECORDS. [employer] provides no warranty or guarantee of the accuracy or completeness of information in this document.
--- NOTE | 2025-06-08 00:15 | RAD_ITS ---
PROCEDURE: LUMBAR SPINE 2 OR 3 VIEWS 06/08/2025 REASON FOR EXAM: INJURY/PAIN TECHNIQUE: Procedure Code: RADSPLL Modality: DX Procedure: LUMBAR SPINE 2 OR 3 VIEWS COMPARISON: None. FINDINGS: Mild levoscoliosis apex at L3. T12-L1: Normal disc height. Normal endplates. Normal alignment of the vertebrae. L1-2: Normal disc height. Normal endplates. Normal alignment of the vertebrae. L2-3: Normal disc height. Normal endplates. Normal alignment of the vertebrae. L3-4: Normal disc height. Normal endplates. Normal alignment of the vertebrae. L4-5: Normal disc height. Normal endplates. Normal alignment of the vertebrae. L5-S1: Grade 1 anterolisthesis of L5 on S1 secondary to bilateral pars defects. Mild narrowing of the posterior intervertebral disc space at L5-S1. Mildly exaggerated lumbar lordosis. The soft tissue structures are unremarkable. Intrauterine device is noted. RAD/Lumbar Spine 2 or 3 Views IMPRESSION: Grade 1 anterolisthesis of L5 on S1 secondary to bilateral pars defects. Mild narrowing of the posterior intervertebral disc space at L5-S1. Mildly exaggerated lumbar lordosis. [facility]
[2025-06-08 01:34] VITALS: BP 124/84; PULSE 86; RESP 16; TEMP 36.6; O2SAT 100
== END 2025-06-08 01:35 | disposition home or self-care (01) ==
PROVIDERS: Emergency Provider Emergency Medicine; PCP Family Medicine; Visit Provider Emergency Medicine
DX: S39.012A Strain of muscle, fascia and tendon of lower back, initial encounter (principal); Z87.891 Personal history of nicotine dependence; R03.0 Elevated blood-pressure reading, without diagnosis of hypertension; X50.0XXA Overexertion from strenuous movement or load, initial encounter; Y93.F2 Activity, caregiving, lifting; Y99.0 Civilian activity done for income or pay; Y92.129 Unspecified place in nursing home as the place of occurrence of the external cause
CPT/HCPCS: 72100; 99282